=== PATIENT | female | born 1945 | race Caucasian/White ===

== ENCOUNTER 2017-08-09 08:05 | Outpatient (CLI) | payer MEDICARE ==
--- NOTE | 2017-08-09 10:36 | ULT ---
ABDOMINAL ULTRASOUND: DATE: 08/09/17. HISTORY: Hepatitis. FINDINGS: There is slightly coarsened echotexture of the liver which may be related to mild fatty infiltration. No focal hepatic lesion is seen. The gallbladder, visualized portions of the IVC, abdominal aorta, limited visualized portions of the pancreas, and right kidney demonstrate a normal sonographic appearance. The right kidney measures 10 .7 cm in length. The left kidney measures 9.8 cm in length. There is a small anechoic structure seen within the super ior pole left kidney measuring 1.2 cm demonstrating characteristics most compatible with a cyst. The re is a smaller hypoechoic structure at the inferior pole left kidney measuring 1 cm, which is diffic ult to characterize but also likely represents a small cyst. IMPRESSION: 1. Mild fatty infiltration of the liver without focal hepatic lesion seen. 2. Left renal cyst. 3. No gallbladder calculi are visualized. POS: [facility]
== END 2017-08-09 08:06 | disposition home or self-care (01) ==
LOC: SCSULT 08:05
PROVIDERS: ATTEND Internal Medicine
DX: Z12.11 Encounter for screening for malignant neoplasm of colon (principal); B19.10 Unspecified viral hepatitis B without hepatic coma; K76.0 Fatty (change of) liver, not elsewhere classified; N28.1 Cyst of kidney, acquired
CPT/HCPCS: 76700

== ENCOUNTER 2017-09-03 09:10 | Emergency (ER) | payer MEDICARE ==
[2017-09-03] MEDS ORDERED: HYDROcodone/Acetaminophen 10/325 mg Tablet ONE (10:30)
--- NOTE | 2017-09-03 11:16 | RAD ---
THREE VIEWS RIGHT FOOT: Date: 09-03-17 History: Right foot pain. FINDINGS: There is diffuse osteopenia. No obvious fracture is seen. There is no evidence of a dislocation. [place] ranc joint is normally aligned. There is mild metatarsal varus and hallux valgus. IMPRESSION: Diffuse osteopenia, but no acute osseous abnormality is identified. POS: [facility]
== END 2017-09-03 10:31 | disposition home or self-care (01) ==
LOC: ERS 09:10
DX: S93.601A Unspecified sprain of right foot, initial encounter (principal); F32.9 Major depressive disorder, single episode, unspecified; I50.9 Heart failure, unspecified; G90.09 Other idiopathic peripheral autonomic neuropathy; W01.0XXA Fall on same level from slipping, tripping and stumbling without subsequent striking against object, initial encounter

== ENCOUNTER 2018-02-22 07:48 | Outpatient (CLI) | payer MEDICARE | END 2018-02-22 07:49 | disposition home or self-care (01) | LOC: BICMAMMO 07:48 | PROVIDERS: ATTEND Family Medicine | DX: Z12.31 Encounter for screening mammogram for malignant neoplasm of breast (principal); Z80.3 Family history of malignant neoplasm of breast; Z85.3 Personal history of malignant neoplasm of breast | CPT/HCPCS: 77063; 77067 ==

== ENCOUNTER 2018-07-18 10:37 | Observation (INO) | payer MEDICARE ==
[2018-07-18] MEDS ORDERED: Ondansetron PF 4 MG/2 ML Vial ONE (10:56)
[2018-07-18] MEDS ORDERED: Diltiazem HCl 125 MG, Admixture Fee 1 EACH in Sodium Chloride 0.9% 100 ML IVPB SCH (11:00)
[2018-07-18 11:15] LABS: #Basophils 0.1 thou/uL (0.0-0.2); #Eosinphils 0.1 thou/uL (0.0-0.7); #Lymphocytes 0.6 thou/uL (1.20-3.40); #Monocytes 1.1 thou/uL (0.11-0.59); #Neutrophils 8.2 thou/uL (1.40-6.50); %Basophils 0.7 % (0.0-1.0); %Eosinophils 1.3 % (0.0-10.0); %Lymphocytes 5.8 % (21.0-51.0); %Monocytes 11.3 % (0.0-10.0); Hemoglobin 12.6 g/dL (12.0-16.0); Mean Corpuscular HGB CONC 31.2 g/dL (32.0-36.0); Mean Corpuscular Hemoglobin 27.7 pg (27.0-31.0); Mean Corpuscular Volume 88.8 fL (78.0-98.0); Mean Platelet Volume 7.6 fL (7.4-10.4); Platelet Count 194 thou/uL (130-400); RBC Distribution Width 13.1 % (11.5-14.5); Red Blood Cell (RBC) Count 4.54 mill/uL (4.20-5.40); White Blood Cell (WBC) Count 10.1 thou/uL (4.8-10.8)
--- NOTE | 2018-07-18 11:19 | RAD ---
PORTABLE SEMIUPRIGHT FRONTAL CHEST RADIOGRAPH: Date: 07/18/18 COMPARISON: None. HISTORY: Atrial fibrillation with rapid ventricular rate, nausea and vomiting. FINDINGS: There is atherosclerotic calcification of the aortic arch. Heart and mediastinal contours unremarkabl e. There is elevation of the humeral head on the right and there is widening of the right AC joint, e vidence of prior surgery and probable rotator cuff tear. No pneumothorax or pleural fluid. No focal c onsolidation or alveolar edema. IMPRESSION: No radiographic evidence of acute cardiopulmonary disease. POS: [facility]
[2018-07-18 11:38] LABS: ALT (SGPT) 12 U/L (8-55); AST (SGOT) 13 U/L (5-34); Albumin 3.6 g/dL (3.4-4.8); Alkaline Phosphatase 50 U/L (40-150); Anion Gap 13 mmol/L (10-20); BUN (Urea Nitrogen) 11 mg/dL (9.8-20.1); Bilirubin, Total 0.7 mg/dL (0.2-1.2); Calc. Creatinine Clearance 0 mL/min (70-130); Carbon Dioxide 26 mmol/L (23-31); Chloride 103 mmol/L (98-107); Estimated GFR-MDRD 56; Globulin 2.5 g/dL (2.4-3.5); Glucose 95 mg/dL (80-115); Protein, Total 6.1 g/dL (6.0-8.3); Sodium 139 mmol/L (136-145)
[2018-07-18 12:15] LABS: Bilirubin Negative (Negative); Blood, Urine Trace (Negative); Clarity CLOUDY (Clear); Glucose, Urine (Dipstick) Negative (Negative); Leukocyte Trace (Negative); Nitrite Positive (Negative); Protein, Urine (Dipstick) Negative (Neg-Trace); Specific Gravity, Urine 1.005 (1.002-1.036)
[2018-07-18 12:18] LABS: Bacteria/HPF 1+ HPF (None Seen); Hyaline Casts/LPF 0-3 HYALINE CAST LPF (0-3 Hyaline); RBC/HPF 0-3 HPF (0-3); Squamous Epithelial 0-3 HPF (0-3)
[2018-07-18] MEDS ORDERED: cefTRIAXone\\ROCEPHIN 1 GM VIAL ONE (12:43)
[2018-07-18] MEDS ORDERED: Acetaminophen 325 MG TAB PO PRN (14:19)
[2018-07-18] MEDS ORDERED: Morphine 2 MG/ML SYRINGE SLOW IVP PRN (14:19)
[2018-07-18] MEDS ORDERED: Sodium Chloride 0.9% 1,000 ML IV SCH (14:30)
[2018-07-18] MEDS ORDERED: Lorazepam 2 MG/ML VIAL ONE (14:47)
--- NOTE | 2018-07-18 15:45 | HP ---
PRIMARY CARE PROVIDER: Dr. Jose Raul Bagley. HISTORY OF PRESENT ILLNESS: The patient referred to the [facility] after being sent from Dr. Bagley's office with EKG revealing atrial fibrillation with a rapid ventricular response. She was seen in the emergency room, referred. At this time, her atrial fib is resolved and she is in regular sinus rhythm. She has had nausea, vomiting, and diarrhea for 2 days. She has noted no blood in either. Last episode was this morning of each. She states she feels she maybe a little bit better, but she has been dizzy like she is going to pass out on arising this morning. She has noted no fever or chills, but she did have a sweat 2 days before the start of the nausea and vomiting. 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 She has been worked up at a referral hospital. She has a history depression, on medicines; history of hypertension. CURRENT MEDICATIONS: 1. Lasix 40 mg twice a day. 2. Potassium chloride 40 mEq once a day. 3. Cymbalta 120 mg a day. 4. Xanax 0.5 mg a day. 5. Fentanyl patch 25 mcg/hour, change every 3 days. 6. Gabapentin 800 mg 3 times a day. 7. Wellbutrin XL 300 mg a day. 8. Amlodipine 10 mg a day. 9. Entecavir 0.5 mg once a day. ALLERGIES: NO KNOWN DRUG ALLERGIES. PAST SURGICAL HISTORY: Rotator cuff on the right, breast surgery, lumpectomy for breast cancer with followup radiation therapy. She has had L-spine surgery. FAMILY HISTORY: No inheritable diseases, hypertension, diabetes, heart disease, or etc. SOCIAL HISTORY: x2 years. Full code status. Sons, Reyes and Umair, are both surrogate decision makers. They are at bedside. No tobacco. No alcohol. REVIEW OF SYSTEMS: GENERAL: See present illness. Sweaty 4 days ago, dizzy like going to pass out this morning. No actual faint. No documented fever. EYES: No double vision, blurred vision, or flashing light. EARS, NOSE, AND THROAT: No ear pain or drainage. No nasal bleeding. No trouble swallowing. CARDIAC: No chest pain, orthopnea, or paroxysmal nocturnal dyspnea. RESPIRATORY: No cough, wheezing, or asthma. GASTROINTESTINAL: See present illness. GENITOURINARY: No hematuria or dysuria. MUSCULOSKELETAL: Has occasional swelling in her legs for which she takes the Lasix. No pain in muscles or joints. NEUROLOGICAL: No strokes, seizures, or focal weakness. PSYCHIATRIC: History of depression, on medications. Does have occasional crying spells and sleep disturbance without her Xanax. SKIN: No bruising, bleeding, or rash. HEME/LYMPH: No tender or swollen lymph nodes in the axilla, inguinal, or cervical area. PHYSICAL EXAMINATION: VITAL SIGNS: Blood pressure 112/63, pulse 81, respirations 16, O2 saturation 97 on room air. HEAD, EYES, EARS, NOSE, AND THROAT: Revealed pupils are equal, round, and reactive to light. Extraocular movements are intact. Sclerae are white. Tympanic membranes are clear. Nose is clear. Oral mucous membranes are wet. Dental hygiene is good. NECK: Supple without jugular venous distention, adenopathy, or thyromegaly. CHEST: Clear to auscultation and percussion. HEART: Had a regular rate and rhythm. First and second heart sounds are clear. There are no murmurs or gallops. ABDOMEN: Soft. Bowel sounds are normal. No hepatosplenomegaly. No mass. No rebound. No bruits. EXTREMITIES: Revealed no cyanosis, clubbing, or edema. PULSES: Carotid, radial, femoral, and dorsalis pedis pulses intact. SKIN: Warm and dry without any bruises or rash. HEME/LYMPH: No tender or swollen lymph nodes in the axilla, inguinal, or cervical area. NEUROLOGIC: Cranial nerves 2 through 12 are intact. Deep tendon reflexes symmetric. Moves all extremities. DIAGNOSTIC DATA: EKG, initial atrial fibrillation with rapid ventricular response, currently regular sinus rhythm with no acute abnormality, reviewed by me. Chest x-ray; no cardiomegaly, CHF, or infiltrate, reviewed by me. LABORATORY DATA: CBC is unremarkable except for a mild neutrophilia. Metabolic profile normal except for a potassium of 3.0. Cardiac enzymes are 93.4 BNP and troponin 0.025. ADMITTING DIAGNOSES: 1. Atrial fibrillation, paroxysmal, resolved. 2. Gastroenteritis with nausea, vomiting, and diarrhea. 3. Mild hypokalemia. 4. Hypertension. 5. Depression. 6. Peripheral neuropathy. PLAN: IV fluids, IV antiemetics, IV medicines for pain and sedation in case of anxiety and severe pain related to her neuropathy. Echocardiogram will be ordered. We will need serial troponins. Job ID: [id number]
[2018-07-18 15:58] VITALS: BMI 27.8
[2018-07-18] MEDS: D5 1/2 NS w/40 mEq KCL 1,000 ML IV SCH (16:28)
[2018-07-18 16:52] LABS: Troponin I 0.078 ng/mL (< 0.028)
[2018-07-18] MEDS: Ondansetron ODT 4 MG TAB PO PRN (21:02)
[2018-07-18] MEDS: Lorazepam 2 MG/ML VIAL SLOW IVP PRN (21:02)
[2018-07-19] MEDS: D5 1/2 NS w/40 mEq KCL 1,000 ML IV SCH ×2 (02:27→15:56)
[2018-07-19] MEDS: Lorazepam 2 MG/ML VIAL SLOW IVP PRN ×2 (07:44→14:58)
[2018-07-19 10:46] LABS: #Eosinphils 0.2 thou/uL (0.0-0.7); #Lymphocytes 0.8 thou/uL (1.20-3.40); #Monocytes 0.7 thou/uL (0.11-0.59); %Basophils 0.3 % (0.0-1.0); %Eosinophils 2.8 % (0.0-10.0); %Lymphocytes 14.2 % (21.0-51.0); %Monocytes 11.7 % (0.0-10.0); Mean Corpuscular HGB CONC 32.7 g/dL (32.0-36.0); Mean Corpuscular Hemoglobin 28.7 pg (27.0-31.0); Mean Corpuscular Volume 87.8 fL (78.0-98.0); Mean Platelet Volume 7.5 fL (7.4-10.4); Platelet Count 182 thou/uL (130-400); RBC Distribution Width 12.8 % (11.5-14.5); Red Blood Cell (RBC) Count 3.84 mill/uL (4.20-5.40); White Blood Cell (WBC) Count 5.6 thou/uL (4.8-10.8)
[2018-07-19 11:12] LABS: Anion Gap 8 mmol/L (10-20); BUN (Urea Nitrogen) 5 mg/dL (9.8-20.1); Calc. Creatinine Clearance 73 mL/min (70-130); Calcium 8.4 mg/dL (7.8-10.44); Carbon Dioxide 27 mmol/L (23-31); Chloride 108 mmol/L (98-107); Estimated GFR-MDRD 70; Glucose 124 mg/dL (80-115); Potassium 3.3 mmol/L (3.5-5.1); Sodium 140 mmol/L (136-145)
[2018-07-19] MEDS ORDERED: ALPRAZolam 0.5 MG TAB PO PRN (11:37)
[2018-07-19] MEDS ORDERED: Ondansetron ODT 4 MG TAB PO PRN (11:50)
[2018-07-19] MEDS ORDERED: DULoxetine 60 MG CAP PO SCH (12:00)
[2018-07-19] MEDS ORDERED: Amlodipine 10 MG TAB PO SCH (12:00)
[2018-07-19] MEDS ORDERED: Bupropion 150 MG XL TAB PO SCH (12:00)
[2018-07-19 12:09] LABS: Troponin I 0.021 ng/mL (< 0.028)
[2018-07-19] MEDS: Ondansetron ODT 4 MG TAB PO PRN (12:38)
[2018-07-19] MEDS: Gabapentin 400 MG CAP PO SCH ×2 (14:39→20:45)
--- NOTE | 2018-07-19 18:28 | PRG ---
DATE OF SERVICE: 07/19/2018 SUBJECTIVE: The patient is a 72-year-old female with past medical history significant for hypertension, peripheral neuropathy, and chronic low back pain, who presented to the hospital with a 3-day history of nausea, vomiting, and diarrhea , and new onset atrial fibrillation. This was diagnosed at Dr. Bagley's office during exam, and so was referred to the ER for further treatment. Her atrial fibrillation had spontaneously resolved on arrival to the ER. She has remained in sinus rhythm. Her nausea and vomiting are improving, and she is tolerating a liquid diet at this time. She has no shortness of breath or dizziness. She has no chest pain. OBJECTIVE: VITAL SIGNS: Blood pressure 162/76, pulse is 96, O2 saturation is 95% on room air, respirations 20. GENERAL: The patient is a female. She is resting comfortably in bed. She is in no respiratory distress. HEENT: Head; normocephalic, atraumatic. NECK: Supple. No carotid bruits. No obvious JVD. CV: S1, S2. Regular rate and rhythm. There is no appreciable murmur, rub, or gallop. LUNGS: Regular respiratory rate and pattern, clear to auscultation bilaterally. ABDOMEN: Positive bowel sounds. Nontender. EXTREMITIES: No lower extremity pitting edema. +2 DP pulses bilaterally. SKIN: No rashes or abrasions. NEURO: The patient is nonfocal. LABORATORY DATA: White blood cell count 5.6, hemoglobin 11, hematocrit 33.7. Chemistry; sodium is 140, potassium is 3.3, BUN 5, creatinine 0.81. Serial troponin has been 0.025, 0.07, and 0.021 respectively. UA positive for nitrite, 1+ bacteria, and trace leukocyte esterase. ASSESSMENT: 1. New onset atrial fibrillation, status post spontaneous conversion back to sinus rhythm. CHADS-VASc equals 4. 2. 3-day history of nausea, vomiting secondary to viral gastroenteritis likely instigating above, symptomatically improving. 3. Abnormal echocardiogram showing mild left ventricular systolic dysfunction with EF 45% to 50% and regional wall motion abnormality. 4. Hypertension. 5. Chronic low back pain. 6. 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 7. Mild urinary tract infection. PLAN: Given the patient's new onset atrial fibrillation and abnormal echocardiogram showing EF of 45% to 50% and hypokinetic motion of the inferior wall, we will consult Cardiology for their recommendations. Continue antiemetics and supportive care for her viral gastroenteritis. Advance diet as tolerated. We will go ahead and treat her urinary tract infection, and continue DVT prophylaxis. Further recommendations based on hospital course. Job ID: [id number] [facility]
[2018-07-19] MEDS: Furosemide 40 MG TAB PO SCH (20:45)
[2018-07-19] MEDS: Folic Acid 1 MG TAB PO SCH (20:45)
[2018-07-19] MEDS: Nitrofurantoin Monohyd/M-Cryst 100 MG CAP PO SCH (20:46)
[2018-07-19] MEDS ORDERED: Enoxaparin Sodium 40 MG/0.4 ML SYRINGE SC SCH (21:00)
[2018-07-20] MEDS: D5 1/2 NS w/40 mEq KCL 1,000 ML IV SCH ×2 (01:14→11:34)
[2018-07-20 05:22] LABS: #Eosinphils 0.2 thou/uL (0.0-0.7); #Lymphocytes 1.2 thou/uL (1.20-3.40); #Monocytes 0.7 thou/uL (0.11-0.59); #Neutrophils 3.6 thou/uL (1.40-6.50); %Basophils 0.8 % (0.0-1.0); %Eosinophils 3.3 % (0.0-10.0); %Lymphocytes 20.5 % (21.0-51.0); %Monocytes 12.4 % (0.0-10.0); Hemoglobin 10.8 g/dL (12.0-16.0); Mean Corpuscular HGB CONC 32.3 g/dL (32.0-36.0); Mean Corpuscular Hemoglobin 28.9 pg (27.0-31.0); Mean Corpuscular Volume 89.4 fL (78.0-98.0); Mean Platelet Volume 7.4 fL (7.4-10.4); Platelet Count 189 thou/uL (130-400); RBC Distribution Width 12.8 % (11.5-14.5); Red Blood Cell (RBC) Count 3.73 mill/uL (4.20-5.40); White Blood Cell (WBC) Count 5.6 thou/uL (4.8-10.8)
[2018-07-20 05:33] LABS: Anion Gap 10 mmol/L (10-20); BUN (Urea Nitrogen) Less than 4 mg/dL (9.8-20.1); Calc. Creatinine Clearance 75 mL/min (70-130); Calcium 8.4 mg/dL (7.8-10.44); Carbon Dioxide 27 mmol/L (23-31); Chloride 109 mmol/L (98-107); Estimated GFR-MDRD 71; Glucose 105 mg/dL (80-115); Potassium 3.7 mmol/L (3.5-5.1); Sodium 142 mmol/L (136-145)
[2018-07-20] MEDS: Gabapentin 400 MG CAP PO SCH ×2 (06:18→13:52)
[2018-07-20] MEDS ORDERED: predniSONE 5 MG TAB PO SCH (08:00)
[2018-07-20] MEDS ORDERED: Bupropion 150 MG XL TAB PO SCH (09:00)
[2018-07-20] MEDS ORDERED: Anastrozole 1 MG TAB PO SCH (09:00)
[2018-07-20] MEDS ORDERED: DULoxetine 30 MG CAP PO SCH (09:00)
[2018-07-20] MEDS ORDERED: Amlodipine 10 MG TAB PO SCH (09:00)
[2018-07-20] MEDS ORDERED: Entecavir [Entecavir] 0.5 MG PO SCH (09:00)
[2018-07-20] MEDS: Nitrofurantoin Monohyd/M-Cryst 100 MG CAP PO SCH (09:02)
[2018-07-20] MEDS: Folic Acid 1 MG TAB PO SCH (09:02)
[2018-07-20] MEDS: Furosemide 40 MG TAB PO SCH (09:02)
[2018-07-20] MEDS ORDERED: DULoxetine 60 MG CAP PO SCH (10:00)
--- NOTE | 2018-07-20 10:58 | CON ---
DATE OF CONSULTATION: HISTORY OF PRESENT ILLNESS: The patient is a 72-year-old woman with a history of demyelinating polyneuropathy, presented with weakness, nausea, vomiting, and was noted to be in irregular heart rhythm. The patient has no previous cardiac history. The patient unfortunately has a severe demyelinating disease. She had several days of nausea, vomiting, and diarrhea. She went to see her physician and noted to be in a rapid irregular heart rhythm. The patient denied having any palpitations. The patient denied having any chest pain or dyspnea. PAST MEDICAL HISTORY: 1. Polyneuropathy. 2. She also has a history of breast carcinoma. 3. Rheumatoid arthritis. 4. Hypertension. PAST SURGICAL HISTORY: Lumpectomy, laminectomy, and also has had spinal surgery. SOCIAL HISTORY: Nonsmoker. FAMILY HISTORY: No strong family history of heart disease. MEDICATIONS: See nursing list. ALLERGIES: NO KNOWN DRUG ALLERGIES. REVIEW OF SYSTEMS: No history of easy bruising or bleeding bright red blood per rectum. PHYSICAL EXAMINATION: GENERAL: This is an obese woman, in no acute distress. VITAL SIGNS: Blood pressure of 132/76. NECK: No jugular distention. LUNGS: Clear to auscultation. HEART: Regular rate and rhythm. Normal S1 and S2. ABDOMEN: Nondistended. EXTREMITIES: Show no edema. VASCULAR: Radial pulses are 2+. LABORATORY RESULTS: Sodium 142, potassium 3.7, chloride 109, bicarbonate 27, BUN 10, creatinine was 0.8. Troponin less than 0.021. White blood cell count 5.6, hemoglobin 10.8, hematocrit 33.4, platelets are 189. Her troponin was 0.021. BNP 93. EK. Revealed atrial fibrillation with a rapid ventricular shock and possible Q- waves suggestive of an inferior infarct. 2. Revealed normal sinus rhythm within a normal ECG. Echocardiogram revealed mild decreased left ventricular ejection fraction 45% to 50% with a hypokinetic inferolateral wall. IMPRESSION: 1. New onset atrial fibrillation. 2. Gastroenteritis. 3. Peripheral neuropathy secondary to demyelinating disease. 4. Rheumatoid arthritis. 5. Hypertension. This patient presents with new onset atrial fibrillation. She has a CHADS-VASc score of 3. From a cardiac standpoint, would recommend long-term anticoagulation therapy. The patient was started on Eliquis. The patient will also be started on a low-dose of a beta-starla. Outpatient stress testing will be obtained. Job ID: [id number] [facility]
[2018-07-20 16:00] VITALS: BP 117/70; TEMP 98.6
[2018-07-20] MEDS ORDERED: Apixaban 5 MG TAB PO SCH (21:00)
--- NOTE | 2018-07-21 02:29 | DIS ---
DATE OF ADMISSION: 07/18/2018 DATE OF DISCHARGE: 07/20/2018 ALLERGIES: NSAIDS. CHIEF COMPLAINT: A 3-day history of nausea, vomiting, and diarrhea. FINAL DIAGNOSES: 1. New onset atrial fibrillation, status post spontaneous conversion back to sinus rhythm, CHADS-VASc 4. 2. Nausea, vomiting secondary to viral gastroenteritis, resolved. 3. Abnormal echocardiogram showing mild left ventricular systolic dysfunction with EF 45% to 50% and regional wall motion abnormality. 4. Hypertension. 5. Chronic low back pain. 6. 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 7. Mild urinary tract infection. LABORATORY RESULTS: White blood cell count 5.6, hemoglobin 10.8, hematocrit 33.4. Sodium 142, potassium 3.7, chloride 109, carbon dioxide 27, BUN 4, creatinine 0.8, GFR 71. Troponin 0.025, 0.07, and 0.021 respectively. BNP 93. Urinalysis positive for trace amounts of blood, positive for nitrites, positive for trace amounts of leukocyte esterase, positive for white blood cell count, and positive for urine bacteria. IMAGING RESULTS: 1. Chest x-ray, no radiographic evidence of acute cardiopulmonary disease. 2. Echocardiogram showed ejection fraction visually estimated at 45% to 50%, hypokinetic motion of the inferior lateral wall noted in the left ventricle, mild MR and mild TR. CONSULTATION: Dr. Underwood of Cardiology. VITAL SIGNS: Blood pressure 117/70, pulse 86, respiration 18, O2 saturation 96% on room air. HOSPITAL COURSE: The patient is a 72-year-old female with past medical history significant for hypertension, peripheral neuropathy, chronic low back pain, and chronic venous insufficiency, who presented to the hospital with a 3-day history of nausea, vomiting, and diarrhea. She was seen in her PCP's office, Dr. Bagley, who diagnosed atrial fibrillation during her office visit and so sent her to the ER for further workup and evaluation. Initial EKG in his office showed sustained atrial fibrillation with a ventricular rate of 171. At that time, the patient was experiencing some dizziness and shortness of breath. Upon her arrival to the ER, she had spontaneously converted back to sinus rhythm. She remained in sinus rhythm throughout her stay. She was given supportive care for her gastroenteritis including antiemetics and IV fluid resuscitation. Her GI symptoms did completely resolve. She was seen in consultation with Dr. Underwood, who recommended anticoagulation with Eliquis 5 mg b.i.d., discontinuing her amlodipine, and adding Toprol-XL 25 mg daily. She will be scheduled for a cardiac PET scan at his office as an outpatient. The patient has no complaints today. She denies any chest pain or shortness of breath. She has ambulated without issue. As mentioned, all of her presenting symptoms have resolved. She has no complaints at this time. PHYSICAL EXAMINATION: GENERAL: She is awake and alert, well appearing, in no respiratory distress. HEENT: Atraumatic, normocephalic. Eye movements intact. NECK: Supple. No lymphadenopathy. No carotid bruits. No JVD. RESPIRATORY: Regular respiratory rate and pattern. Clear to auscultation bilaterally. No rhonchi, wheezes, or crackles. CV: S1 and S2. Regular rate and rhythm. No appreciable murmurs, rubs, or gallops. GI: Soft, nontender. Normal bowel sounds. PERIPHERAL VASCULAR: No pitting edema bilaterally. She does have palpable pulses. MUSCULOSKELETAL: No joint effusion or swelling. NEUROLOGIC: Awake and alert. Cranial nerves 2 through 12 grossly intact. Nonfocal. SKIN: Warm and dry. No discoloration or rashes. CONDITION AT DISCHARGE: Stable discharge. DISCHARGE MEDICATIONS: She will continue her home medication regimen includin. Alprazolam 0.5 mg p.o. at bedtime. 2. Anastrozole 1 mg p.o. daily. 3. Bupropion 300 mg p.o. q.a.m. 4. Duloxetine 120 mg p.o. daily. 5. Entecavir 0.5 mg p.o. daily. 6. Fentanyl patch as directed. 7. Folic acid 1 mg tab p.o. b.i.d. 8. Gabapentin 800 mg p.o. q.8 hours. 9. Zofran 4 mg p.o. q.8 hours. 10. Pantoprazole 40 mg daily. 11. Prednisone 5 mg tab one tab q.a.m. New medications will be: 1. Toprol-XL 25 mg daily. 2. Eliquis 5 mg tablet one tablet p.o. b.i.d. 3. Regarding her furosemide, I have reduced her dose to 20 mg tablet along with her potassium tablet to 20 mg of Lasix only as needed for swelling. 4. She will take her potassium supplement just one in conjunction with that. DISCHARGE DISPOSITION: Home. PLAN: As mentioned, the patient will follow up with Dr. Underwood as an outpatient. She will have a cardiac PET scan performed at that time to assess for reversible ischemia. She will continue Eliquis for stroke prophylaxis. Regarding her cardiomyopathy, all questions have been answered to the patient's satisfaction. Her gastroenteritis has resolved. We will discharge the patient home. Care has been discussed with Dr. Almeida, who agrees with the above. Job ID: [id number]
[2018-07-21] MEDS ORDERED: DULoxetine 60 MG CAP PO SCH (09:00)
== END 2018-07-20 19:22 | disposition home or self-care (01) ==
LOC: ERS 10:37 → ERHOLD 12:30 → 2SW 15:39
PROVIDERS: ADMIT Internal Medicine; ATTEND Internal Medicine
DX: I48.0 Paroxysmal atrial fibrillation (principal); K52.9 Noninfective gastroenteritis and colitis, unspecified; I10 Essential (primary) hypertension; G62.9 Polyneuropathy, unspecified; N39.0 Urinary tract infection, site not specified; M06.9 Rheumatoid arthritis, unspecified; E87.6 Hypokalemia; F32.9 Major depressive disorder, single episode, unspecified; G37.9 Demyelinating disease of central nervous system, unspecified; Z85.3 Personal history of malignant neoplasm of breast; Z92.3 Personal history of irradiation; Z88.6 Allergy status to analgesic agent; Z79.01 Long term (current) use of anticoagulants; Z79.2 Long term (current) use of antibiotics; Z79.52 Long term (current) use of systemic steroids; Z98.890 Other specified postprocedural states; Z79.899 Other long term (current) drug therapy
CPT/HCPCS: 51701; 71045; 80048 ×2; 80053; 83605; 83880; 84484 ×3; 85025 ×3; 87040; 93005; 93306; 96361; 96365; 96366 ×4; 96367; 96372; 96374; 96375; 96376 ×2; 99285; G0378 ×3; 36415; 81003; 81015; J0696; J1650; J2060; J2270; J2405; J7050; J7512; Q0162

== ENCOUNTER 2018-11-22 08:48 | Outpatient (CLI) | payer MEDICARE ==
--- NOTE | 2018-11-22 09:19 | RAD ---
XR Shoulder Lt 3 View STANDARD: 11/22/2018 12:00 AM CLINICAL INDICATION: Acute pain, left shoulder COMPARISON: None. FINDINGS: Fracture:No fracture. Arthropathy:Moderate arthropathy. Incidental findings:None of significance. IMPRESSION: 1. No acute osseous abnormality.
== END 2018-11-22 08:49 | disposition home or self-care (01) ==
LOC: RAD 08:48
PROVIDERS: ATTEND Nurse Practitioner Family
DX: M25.512 Pain in left shoulder (principal)

== ENCOUNTER 2019-06-05 10:45 | Outpatient (CLI) | payer MEDICARE ==
--- NOTE | 2019-06-08 13:28 | MMO ---
Bilateral MAMMO Bilat Screen [facility]. CLINICAL HISTORY: Patient is 73 years old and is seen for screening. The patient has the following family history of breast cancer: aunt, malignant (generic) and cousin female, malignant (generic). The patient has a history of malignant (generic) in the left breast at age 55. The patient has a history of left Lumpectomy in 1999 - malignant and left Lumpectomy in 2002 - benign. VIEWS: The views performed were: bilateral craniocaudal with tomosynthesis and bilateral mediolateral oblique with tomosynthesis. FILMS COMPARED: The present examination has been compared to prior imaging studies performed at [facility] on 11/10/2013 and 11/12/2014, and at [facility] on 05/12/2016 and 02/22/2018. This study has been interpreted with the assistance of computer-aided detection. MAMMOGRAM FINDINGS: There are scattered fibroglandular densities. Finding 1: There are stable benign appearing calcifications seen in both breasts. Finding 2: There is a stable focal asymmetry seen in the right breast. There are no suspicious masses, suspicious calcifications, or new areas of architectural distortion. IMPRESSION: THERE IS NO MAMMOGRAPHIC EVIDENCE OF MALIGNANCY. A ROUTINE FOLLOW-UP MAMMOGRAM IN 1 YEAR IS RECOMMENDED. THE RESULTS OF THIS EXAM WERE SENT TO THE PATIENT. ACR BI-RADS Category 2 - Benign finding MAMMOGRAPHY NOTE: 1. A negative mammogram report should not delay a biopsy if a dominant of clinically suspicious mass is present. 2. Approximately 10% to 15% of breast cancers are not detected by mammography. 3. Adenosis and dense breasts may obscure an underlying neoplasm. Reported by: RAJWINDER SHELL MD Electonically Signed: [id number]
== END 2019-06-05 10:46 | disposition home or self-care (01) ==
LOC: BICMAMMO 10:45
PROVIDERS: ATTEND Family Medicine
DX: Z12.31 Encounter for screening mammogram for malignant neoplasm of breast (principal); Z80.3 Family history of malignant neoplasm of breast; Z85.3 Personal history of malignant neoplasm of breast; Z91.89 Other specified personal risk factors, not elsewhere classified; Z98.890 Other specified postprocedural states
CPT/HCPCS: 77063; 77067

== ENCOUNTER 2020-02-08 23:41 | Inpatient (IN) | payer MEDICARE, OTHER ==
[2020-02-08] MEDS ORDERED: cefTRIAXone\\ROCEPHIN 2 GM VIAL ONE (23:59)
[2020-02-08] MEDS ORDERED: Sodium Chloride 0.9% 100 ML ONE (23:59)
[2020-02-09 00:25] LABS: #Basophils 0.1 thou/uL (0.0-0.2); #Eosinphils 0.1 thou/uL (0.0-0.7); #Lymphocytes 0.8 thou/uL (1.20-3.40); #Monocytes 0.6 thou/uL (0.11-0.59); #Neutrophils 6.1 thou/uL (1.40-6.50); %Basophils 0.7 % (0.0-1.0); %Eosinophils 1.9 % (0.0-10.0); %Lymphocytes 10.6 % (21.0-51.0); %Monocytes 8.2 % (0.0-10.0); %Neutrophils 78.6 % (42.0-75.0); Hemoglobin 12.2 g/dL (12.0-16.0); Mean Corpuscular HGB CONC 33.6 g/dL (32.0-36.0); Mean Corpuscular Hemoglobin 29.2 pg (27.0-31.0); Platelet Count 240 thou/uL (130-400); RBC Distribution Width 12.7 % (11.5-14.5); Red Blood Cell (RBC) Count 4.19 mill/uL (4.20-5.40); White Blood Cell (WBC) Count 7.8 thou/uL (4.8-10.8)
[2020-02-09 00:32] LABS: INR-International Normal Ratio 1.1; PTT 34.3 sec (22.9-36.1); Prothrombin Time 14.4 sec (12.0-14.7)
[2020-02-09] MEDS ORDERED: Pantoprazole 40 MG VIAL ONE (00:36)
[2020-02-09 00:41] LABS: Acetaminophen Less than 6.0 mcg/mL (10.0-30.0); Alcohol Less than 10 mg/dL (Less than 10); Salicylate Less than 8.0 mg/dL (15.0-30.0)
[2020-02-09 00:46] LABS: ALT (SGPT) 12 U/L (8-55); AST (SGOT) 13 U/L (5-34); Albumin 3.4 g/dL (3.4-4.8); Alkaline Phosphatase 61 U/L (40-110); Anion Gap 15 mmol/L (10-20); BUN (Urea Nitrogen) 9 mg/dL (9.8-20.1); Bilirubin, Total 0.4 mg/dL (0.2-1.2); Calc. Creatinine Clearance 0 mL/min (70-130); Calcium 8.8 mg/dL (7.8-10.44); Carbon Dioxide 23 mmol/L (23-31); Chloride 108 mmol/L (98-107); Estimated GFR-MDRD 59; Globulin 2.5 g/dL (2.4-3.5); Glucose 116 mg/dL (83-110); Lipase 14 U/L (8-78); Protein, Total 5.9 g/dL (6.0-8.3); Sodium 143 mmol/L (136-145)
[2020-02-09 01:03] LABS: Free T4 (Free Thyroxine) 1.3 ng/dL (0.70-1.48); Thyroid Stimulating Hormone 1.3601 uIU/mL (0.35-4.94)
[2020-02-09 01:31] LABS: Amphetamine Not Detected (NotDetected); Benzodiazepine Screen Detected (NotDetected); Bilirubin Negative (Negative); Blood, Urine Negative (Negative); Clarity Clear (Clear); Cocaine Metabolite Screen Not Detected (NotDetected); Glucose, Urine (Dipstick) Normal (Negative); Ketone, Urine Negative (Negative); Leukocyte 500 Leu/uL (Negative); Medtox Reader # READER 4; Methamphetamine Not Detected (NotDetected); Nitrite 1+ (Negative); Opiate Screen Not Detected (NotDetected); Phencyclidine (PCP) Not Detected (NotDetected); Protein, Urine (Dipstick) Negative (Neg-Trace); RBC/HPF 0-3 HPF (0-3); Specific Gravity, Urine 1.006 (1.002-1.036); Squamous Epithelial None Seen HPF (0-3); THC/Cannabinoid Screen Not Detected (NotDetected); Urobilinogen Normal mg/dL (Less than 2); WBC/HPF 21-50 HPF (0-3); pH, Urine 6.5 (5.0-9.0)
[2020-02-09 01:32] LABS: Barbiturates Screen Not Detected (NotDetected); Medtox Control Line Valid? VALID (VALID); Methadone Not Detected (NotDetected); Oxycodone Screen Not Detected (NotDetected); Tricyclic Screen Not Detected (NotDetected)
[2020-02-09 01:41] LABS: Bacteria/HPF 3+ HPF (None Seen)
[2020-02-09] MEDS ORDERED: Magnesium 2 GM/50 ML BAG (IN WATER) ONE (01:49)
[2020-02-09] MEDS ORDERED: Promethazine HCl 25 MG/ML VIAL ONE (01:51)
[2020-02-09] MEDS ORDERED: Vancomycin 1 GM/200 ML BAG ONE (02:11)
[2020-02-09] MEDS ORDERED: Ondansetron PF 4 MG/2 ML Vial IVP PRN (02:31)
--- NOTE | 2020-02-09 02:40 | PDOC.HHP ---
Hospitalist HPI - History of Present Illness Altered mental status History of Present Illness: 74-year-old woman with a history of hepatitis B on entecavir, history of hyperlipidemia and hypertension was brought to the emergency department due to altered mental status. Nursing report patient has also been vomiting. No reported fever or diarrhea. No reported melena or hematochezia. In the ED, patient's UA suggest the presence of UTI. Other blood work unremarkable. Serum ammonia level is 27 and unlikely the cause of her altered mental status. Patient altered mental status likely secondary to UTI. She does not meet criteria for sepsis. Blood cultures and urine culture obtained in the ED. Sandrine ent given a shot of IV Rocephin and vancomycin. She is admitted for further management of UTI with altered mental status. Hospitalist ROS - Review of Systems ROS unobtainable: due to mental status - Medication Medications: Medication Instructions Recorded Confirmed Type Anastrozole [Arimidex] 1 mg PO DAILY 09/25/15 07/19/18 History DULoxetine [Cymbalta] 120 mg PO DAILY 09/25/15 07/19/18 History Folic Acid [Folvite] 1 mg PO BID 09/25/15 07/19/18 History predniSONE 5 mg PO QAM-WM 09/25/15 07/19/18 History Pantoprazole [Protonix] 40 mg PO DAILY #0 tab 10/25/15 07/19/18 Rx ALPRAZolam [Xanax] 0.5 mg PO HS PRN 07/19/18 07/19/18 History Entecavir 0.5 mg PO DAILY 07/19/18 07/19/18 History Gabapentin 800 mg PO Q8HR 07/19/18 07/19/18 History Ondansetron HCl [Zofran] 4 mg PO Q8HR PRN 07/19/18 07/19/18 History buPROPion HCl [Wellbutrin XL] 300 mg PO QAM 07/19/18 07/19/18 History fentaNYL [Duragesic] 25 mcg TD Q3D 07/19/18 07/19/18 History Apixaban [Eliquis] 5 mg PO BID #60 tab 07/20/18 Rx Furosemide 20 mg PO DAILY #30 tablet 07/20/18 Rx Metoprolol Succinate [Toprol XL] 25 mg PO HS #30 tab 07/20/18 Rx Nitrofurantoin Monohyd/M-Cryst 100 mg PO BID #10 cap 07/20/18 Rx [Macrobid] Potassium Chloride 20 meq PO DAILY PRN #30 tab.er.prt 07/20/18 Rx Hospitalist History - Past Medical History Cardiac: reports: HTN Psych: reports: Depression Other Medical History: Hepatitis B, breast cancer. - Past Surgical History Other Surgical History: Rotator cuff surgery, breast surgery, lumpectomy for breast cancer with follow- up radiation therapy, lumbar spine surgery. - Family History Other Family History: Reviewed and noncontributory - Social History Smoking Status: Never smoker Alcohol: reports: None Drugs: reports: none - Exam General Appearance: NAD General - other findings: Confused Eye: PERRL, anicteric sclera ENT: normocephalic atraumatic, no oropharyngeal lesions, moist mucosa Neck: supple, symmetric, no JVD, no thyromegaly Heart: RRR (Tachycardic), no murmur, no gallops Respiratory: CTAB, no wheezes, no rales, no ronchi Gastrointestinal: soft, non-distended, normal bowel sounds Gastrointestinal - other findings: Suprapubic tenderness. Extremities: no cyanosis, no edema Skin: normal turgor, no rashes Neurological: cranial nerve grossly intact, no focal deficits Musculoskeletal: normal tone, normal strength Psychiatric: oriented to person, oriented to place Hospitalist Results - Labs Result Diagrams: 02/09/20 06:03 02/08/20 00:08 Lab results: WBC 7.8 thou/uL (4.8-10.8) 02/08/20 00:08 Hgb 12.2 g/dL (12.0-16.0) 02/08/20 00:08 Hct 36.4 % (36.0-47.0) 02/08/20 00:08 MCV 87.0 fL (78.0-98.0) 02/08/20 00:08 Plt Count 240 thou/uL (130-400) 02/08/20 00:08 Neutrophils % 78.6 % (42.0-75.0) H 02/08/20 00:08 Sodium 143 mmol/L (136-145) 02/08/20 00:08 Potassium 3.0 mmol/L (3.5-5.1) L 02/08/20 00:08 Chloride 108 mmol/L (98-107) H 02/08/20 00:08 Carbon Dioxide 23 mmol/L (23-31) 02/08/20 00:08 BUN 9 mg/dL (9.8-20.1) L 02/08/20 00:08 Creatinine 0.94 mg/dL (0.6-1.1) 02/08/20 00:08 Glucose 116 mg/dL (83-110) H 02/08/20 00:08 Lactic Acid 1.8 mmol/L (0.5-2.2) 02/08/20 00:08 Calcium 8.8 mg/dL (7.8-10.44) 02/08/20 00:08 Total Bilirubin 0.4 mg/dL (0.2-1.2) 02/08/20 00:08 AST 13 U/L (5-34) 02/08/20 00:08 ALT 12 U/L (8-55) 02/08/20 00:08 Alkaline Phosphatase 61 U/L (40-110) 02/08/20 00:08 Ammonia 27 umol/L (18-72) 02/09/20 00:00 Troponin I 0.020 ng/mL (< 0.028) 02/08/20 00:08 Serum Total Protein 5.9 g/dL (6.0-8.3) L 02/08/20 00:08 Albumin 3.4 g/dL (3.4-4.8) 02/08/20 00:08 Lipase 14 U/L (8-78) 02/08/20 00:08 Urine Ketones Negative mg/dL (Negative) 02/09/20 00:57 Urine Blood Negative (Negative) 02/09/20 00:57 Urine Nitrite 1+ (Negative) A 02/09/20 00:57 Ur Leukocyte Esterase 500 Aishwarya/uL (Negative) A 02/09/20 00:57 Urine RBC 0-3 HPF (0-3) 02/09/20 00:57 Urine WBC 21-50 HPF (0-3) A 02/09/20 00:57 Ur Squamous Epith Cells None Seen HPF (0-3) 02/09/20 00:57 Urine Bacteria 3+ HPF (None Seen) A 02/09/20 00:57 - Radiology Interpretation Chest x-ray Status: image reviewed by me (No acute intracranial process) Hospitalist H&P A/P - Problem (1) Metabolic encephalopathy Code(s): G93.41 - METABOLIC ENCEPHALOPATHY Status: Acute (2) UTI (urinary tract infection) Status: Acute (3) Chronic hepatitis B Code(s): B18.1 - CHRONIC VIRAL HEPATITIS B WITHOUT DELTA-AGENT Status: Acute (4) Hypertension Code(s): I10 - ESSENTIAL (PRIMARY) HYPERTENSION Status: Chronic (5) Hypokalemia Code(s): E87.6 - HYPOKALEMIA Status: Acute - Plan Plan: Admit patient to Telemetry. Urine cultures and blood cultures obtained in the ED. Status post IV Rocephin and Vanco in the ED. We will continue same antibiotics. Follow cultures. Dupont catheter insertion and maintain for urinary retention. Pain management as needed. Continue entecavir for hepatitis B. Neurochecks. Replace potassium orally. I am unable to discuss advanced care planning at this time given altered mental status and no family member by her bedside.
[2020-02-09] MEDS ORDERED: Lorazepam 2 MG/ML VIAL ONE ×2 (02:41→02:56)
[2020-02-09] MEDS ORDERED: Morphine 2 MG/ML VIAL SLOW IVP PRN (02:45)
[2020-02-09] MEDS ORDERED: Sodium Chloride 0.9% 1,000 ML IV SCH (02:45)
[2020-02-09 03:46] LABS: Bacteria/HPF 4+ HPF (None Seen); Bilirubin Negative (Negative); Blood, Urine 1+ (Negative); Clarity Extra Turbid (Clear); Glucose, Urine (Dipstick) Normal (Negative); Ketone, Urine Trace mg/dL (Negative); Leukocyte 500 Leu/uL (Negative); Nitrite 1+ (Negative); Protein, Urine (Dipstick) 50 mg/dL (Neg-Trace); Specific Gravity, Urine 1.006 (1.002-1.036); Squamous Epithelial 0-3 HPF (0-3); Urobilinogen Normal mg/dL (Less than 2); WBC/HPF Greater than 50 HPF (0-3)
[2020-02-09 06:18] LABS: #Eosinphils 0.1 thou/uL (0.0-0.7); #Lymphocytes 0.7 thou/uL (1.20-3.40); #Monocytes 0.5 thou/uL (0.11-0.59); #Neutrophils 5.8 thou/uL (1.40-6.50); %Basophils 0.3 % (0.0-1.0); %Eosinophils 0.9 % (0.0-10.0); %Lymphocytes 9.3 % (21.0-51.0); %Monocytes 7.5 % (0.0-10.0); %Neutrophils 82.1 % (42.0-75.0); Hemoglobin 10.7 g/dL (12.0-16.0); Mean Corpuscular Hemoglobin 29.4 pg (27.0-31.0); Mean Corpuscular Volume 88.9 fL (78.0-98.0); Mean Platelet Volume 7.8 fL (7.4-10.4); Platelet Count 200 thou/uL (130-400); RBC Distribution Width 12.5 % (11.5-14.5); Red Blood Cell (RBC) Count 3.65 mill/uL (4.20-5.40); White Blood Cell (WBC) Count 7.1 thou/uL (4.8-10.8)
[2020-02-09 06:33] LABS: Anion Gap 11 mmol/L (10-20); BUN (Urea Nitrogen) 7 mg/dL (9.8-20.1); Calc. Creatinine Clearance 63 mL/min (70-130); Calcium 8.5 mg/dL (7.8-10.44); Carbon Dioxide 27 mmol/L (23-31); Chloride 107 mmol/L (98-107); Estimated GFR-MDRD 68; Glucose 110 mg/dL (83-110); Sodium 142 mmol/L (136-145)
[2020-02-09 06:38] LABS: Potassium 2.8 mmol/L (3.5-5.1)
[2020-02-09] MEDS ORDERED: Potassium Chloride 20 MEQ TAB PO SCH (06:45)
--- NOTE | 2020-02-09 07:29 | CT ---
PRELIMINARY REPORT/[facility]/EMERGENCY AFTER HOURS PROCEDURE EXAM: CT Head Without Intravenous Contrast. CLINICAL HISTORY: 74-year-old female brought in by EMS minimal history is provided as the patient is altered. Patient w as altered at home and son called EMS for worsening altered mental status. Patient provides very little history but notes that she has been throwing up for several days she is alert and oriented x2, person, place but not time TECHNIQUE: Axial computed tomography images of the head/brain without intravenous contrast. COMPARISON: CT\SR - CT BRAIN WO CON - 10/15/2014 09:36 AM CDT FINDINGS: BRAIN: No acute intraparenchymal hemorrhage. No new mass lesion. No CT evidence for acute territorial infarc t. No midline shift or extra-axial collection. Stable fracture calcifications in the left basal ganglia that measures 1 x 1.3 cm. No mass-effect or midline shift. This may represent partly calcified mass or prior infection. VENTRICLES: No hydrocephalus. ORBITS: The orbits are unremarkable. SINUSES AND MASTOIDS: The paranasal sinuses and mastoid air cells are clear. SOFT TISSUES: No significant facial or scalp soft tissue swelling evident. No radiopaque foreign body is seen. BONES: No acute skull fracture. IMPRESSION: Stable CT scan of the head. No acute intracranial abnormality. ELECTRONICALLY SIGNED BY: Shruthi Davis MD Feb 09, 2020 12:31:46 AM CDT This report is intended for review by the ordering physician only, in accordance of law. If you recei ve this report in error, please call [facility] at [phone]. FINAL REPORT Exam: Head CT without contrast HISTORY: Altered mental status COMPARISON: 10/15/2014 FINDINGS: Hemorrhage: No intraparenchymal hemorrhage or extra-axial hematoma. Brain parenchyma: Cortical murguia-white matter differentiation is preserved. No mass effect or midline shift. Basilar cisterns are patent.Stable calcification centered in the left deep murguia matter structures Ventricular system: Ventricles and sulci are patent and symmetric. Calvarium: Intact. Sinuses and mastoid air cells: Adequate aeration. IMPRESSION: 1. This report is in agreement with initial report by [facility]. 2. No acute intracranial process. Transcribed Date/Time: 02/09/2020 7:34 AM
--- NOTE | 2020-02-09 07:36 | CT ---
PRELIMINARY REPORT/[facility]/EMERGENCY AFTER HOURS PROCEDURE EXAM: CT Abdomen and Pelvis Without Intravenous Contrast CLINICAL HISTORY: 74-year-old female brought in by EMS minimal history is provided as the patient is altered. Patient w as altered at home and son called EMS for worsening altered mental status. Patient provides very little history but notes that she has been throwing up for several days she is alert and oriented x2, person, place but not time TECHNIQUE: Axial computed tomography images of the abdomen and pelvis without intravenous contrast. CONTRAST: None. COMPARISON: None provided. FINDINGS: LUNG BASES: No basilar airspace consolidation or pleural effusion. LIVER: Unremarkable. GALLBLADDER AND BILE DUCTS: Mildly distended. No wall thickening No calcified stone. No ductal dilation. PANCREAS: Unremarkable. SPLEEN: Unremarkable. ADRENAL GLANDS: Unremarkable. KIDNEYS, URETERS, AND BLADDER: Unremarkable. No hydronephrosis or nephrolithiasis. No ureteral or bladder calculi. Urinary bladder is moderately distended. There is an air-fluid level. No wall thickening or filling d efects. STOMACH AND BOWEL: No obstruction. No wall thickening. No CT evidence of colitis or acute diverticulitis. APPENDIX: No CT evidence for appendicitis. PERITONEUM: No free fluid. No free air. LYMPH NODES: No lymphadenopathy. REPRODUCTIVE: Unremarkable as visualized. VASCULATURE: No aortic aneurysm. ABDOMINAL WALL AND SOFT TISSUES: Unremarkable. BONES: Osteopenia. There is lumbar spondylosis and degenerative disc disease. Posterior fusion hard robledo noted at L4-5 with grade 1 and 2 listhesis at L4-5. No fracture or suspicious osseous abnormality. There is a healed fracture through the lower sacrum. IMPRESSION: Distended urinary bladder. Recommend clinical correlation for retention or outlet obstruction Air within the bladder which can be seen with infection versus recent instrumentation. No bladder wa ll thickening or filling defects. ELECTRONICALLY SIGNED BY: Shruthi Davis MD Feb 09, 2020 12:37:49 AM CDT This report is intended for review by the ordering physician only, in accordance of law. If you recei ve this report in error, please call [facility] at [phone]. FINAL REPORT Exam: Abdomen CT without contrast Pelvic CT without contrast HISTORY: Pain. Altered mental status. Emesis. COMPARISON: None FINDINGS: Abdomen CT: Lung bases:Clear Heart size: Normal size Aorta: Atherosclerotic. Solid organs: Limited evaluation by the lack of IV contrast. Grossly no solid organ abnormality. Lymph nodes: No gastrohepatic, retrocrural or periportal lymphadenopathy Gallbladder: Unremarkable Mesentery: No mass, lymphadenopathy, free air or free fluid Kidneys: Bilaterally, no hydronephrosis, nephrolithiasis or perinephric fat stranding. Bilateral uret ers have a normal caliber. No hydroureter, periureteral fat stranding or ureterolithiasis. Alimentary canal: Normal caliber appendix. No bowel obstruction CT PELVIS: No mass, adenopathy, free air or free fluid. Grossly unremarkable reproductive organs. Urinary bladder: Air-fluid level in the bladder. Correlate for recent Dupont catheterization. Signific ant amount of urine is still present in the bladder. Osseous structures: No lytic or blastic lesions IMPRESSION: 1. This report is in agreement with initial report by [facility]. 2. No evidence of obstructive uropathy. 2. Normal caliber appendix. 4. Air-fluid level in the urinary bladder which is presumed to be due to recent Dupont catheterization . Consider urinalysis if there is concern for possible cystitis. Transcribed Date/Time: 02/09/2020 7:39 AM
--- NOTE | 2020-02-09 07:43 | RAD ---
XR Chest 1 View Portable History: Shortness of breath Comparison: Radiograph 2019 Findings: Lungs are clear. No pneumothorax or effusion. Cardiac silhouette and mediastinal contours a re within normal limits. No acute osseous abnormality. Bilateral rotator cuff arthropathy. Impression: No acute intrathoracic abnormality.
[2020-02-09] MEDS ORDERED: Adenosine 6 MG/2 ML VIAL ONE (07:44)
[2020-02-09] MEDS ORDERED: Digoxin 0.5 MG/2 ML AMP ONE (07:52)
[2020-02-09] MEDS ORDERED: Metoprolol Tartrate 5 MG/5 ML VIAL ONE (07:56)
[2020-02-09] MEDS ORDERED: Diltiazem 125 MG in Sodium Chloride 0.9% 100 ML IVPB SCH ×3 (08:00)
[2020-02-09] MEDS ORDERED: Potassium Chloride 20 MEQ in Premix Bag 1 BAG IVPB SCH (08:00)
[2020-02-09] MEDS ORDERED: Metoprolol Tartrate 5 MG/5 ML VIAL IVP SCH (08:00)
[2020-02-09] MEDS ORDERED: Potassium Chloride 20 MEQ/100 ML PREMIX BAG IVPB SCH (08:00)
[2020-02-09] MEDS ORDERED: Metoprolol Tartrate 25 MG TAB PO SCH (08:15)
[2020-02-09] MEDS ORDERED: Vancomycin HCl 1 GM in Sodium Chloride 0.9% 250 ML 250 ML IVPB SCH (09:00)
[2020-02-09] MEDS: Enoxaparin Sodium 40 MG/0.4 ML SYRINGE SC SCH (09:49)
[2020-02-09] MEDS: Potassium Chloride 20 MEQ TAB PO SCH (10:06)
[2020-02-09] MEDS ORDERED: DULoxetine 60 MG CAP PO SCH (10:15)
[2020-02-09] MEDS ORDERED: Anastrozole 1 MG TAB PO SCH (10:15)
[2020-02-09] MEDS ORDERED: Folic Acid 1 MG TAB PO SCH (10:15)
[2020-02-09 13:02] LABS: SARS-CoV-2 MS2 Positive; SARS-CoV-2 N Gene Negative; SARS-CoV-2 S Gene Negative; SARS-CoV-2 by NAA Not Detected (NotDetected); SARS-CoV-2 orf1ab Negative
[2020-02-09 14:25] LABS: Anion Gap 11 mmol/L (10-20); BUN (Urea Nitrogen) 5 mg/dL (9.8-20.1); Calc. Creatinine Clearance 66 mL/min (70-130); Calcium 8.7 mg/dL (7.8-10.44); Carbon Dioxide 27 mmol/L (23-31); Chloride 107 mmol/L (98-107); Estimated GFR-MDRD 71; Glucose 94 mg/dL (83-110); Potassium 3.4 mmol/L (3.5-5.1); Sodium 142 mmol/L (136-145)
[2020-02-09] MEDS ORDERED: Lorazepam 2 MG/ML VIAL SLOW IVP SCH (15:00)
--- NOTE | 2020-02-09 18:26 | CON ---
DATE OF CONSULTATION: 02/09/2020 REASON FOR CONSULTATION: Atrial fibrillation with a rapid rate. PRIMARY BONE COOKING OPERATOR: Dr. Ever Underwood. HISTORY OF PRESENT ILLNESS: Ms. Rodrigues is a 74-year-old woman with history of atrial fibrillation. She was admitted on this occasion with disorientation and altered mental status and also vomiting. The patient had an episode of atrial fibrillation with a rapid rate this morning. She had an episode of atrial fibrillation with a rapid rate a year ago. Saw Dr. Underwood in the hospital, started on beta-blockers. The patient's mental status is improved since she has been here. She sounds like she did receive some intravenous fluid and is feeling overall much better. Medications at home not really clear as her mental status is still not adequate to be certain. It is listed as being on apixaban 5 mg twice a day, amlodipine 10 mg a day, metoprolol succinate 50 mg a day, furosemide 20 mg twice a day. REVIEW OF SYSTEMS: Really not accurate or obtainable currently. PHYSICAL EXAMINATION: GENERAL: This is a pleasant 74-year-old woman, in no distress. VITAL SIGNS: Blood pressure 149/80, pulse 106. LUNGS: Clear. I do not hear any wheezing. Few basilar rales. CARDIAC: Normal S1, normal S2. There is no murmur, rub, or gallop. ABDOMEN: Soft and nontender. No hepatosplenomegaly. EXTREMITIES: Warm, dry. No clubbing. No cyanosis. There is no edema. DIAGNOSTIC STUDIES: EKG did show atrial fibrillation with a rapid rate. Rate got up to 200. She is in sinus rhythm, sinus tachycardia. PERTINENT LABORATORY DATA: Hemoglobin is 10.7. Potassium was 2.8, phosphorus was 2.0. Benzodiazepines were detected. The patient had an evaluation a year ago that included an echocardiogram done. Ejection fraction at that time was 45% to 50% ASSESSMENT: 1. Atrial fibrillation with a rapid rate. 2. Altered mental status, improved. 3. Hypokalemia. PLAN: 1. Continue to replete potassium. 2. Beta-blockers have been resumed. 3. We will resume Eliquis likely tomorrow. 4. Consideration for outpatient stress testing to be done with follow up with Dr. Underwood. Job ID: [id number] MTDD
[2020-02-09] MEDS: Folic Acid 1 MG TAB PO SCH (20:43)
[2020-02-09] MEDS: Metoprolol Tartrate 25 MG TAB PO SCH (20:43)
[2020-02-09] MEDS ORDERED: FLU VACC QS2020-21(65YR UP)/PF 240 MCG/0.7 ML SYRINGE IM ONE (21:00)
[2020-02-09] MEDS ORDERED: Lorazepam 0.5 MG TAB PO SCH (23:45)
[2020-02-09] MEDS ORDERED: cefTRIAXone\\ROCEPHIN 1 GM in Sodium Chloride 0.9% 100 ML IVPB SCH (23:59)
[2020-02-10] MEDS: Vancomycin HCl 1.25 GM in Sodium Chloride 0.9% 250 ML 250 ML IVPB SCH (01:29)
[2020-02-10] MEDS: Lorazepam 1 MG TAB PO PRN ×2 (01:40→07:19)
[2020-02-10] MEDS: ALPRAZolam 0.5 MG TAB PO PRN (03:44)
[2020-02-10] MEDS ORDERED: Magnesium 2 GM/50 ML 2 GM in Premix Bag 1 BAG IVPB SCH (08:00)
[2020-02-10] MEDS: Lorazepam 2 MG/ML VIAL SLOW IVP PRN ×2 (08:57→20:22)
[2020-02-10] MEDS: DULoxetine 60 MG CAP PO SCH (09:41)
[2020-02-10] MEDS: Anastrozole 1 MG TAB PO SCH (09:42)
[2020-02-10] MEDS: Potassium Chloride 20 MEQ TAB PO SCH (09:42)
[2020-02-10] MEDS: Folic Acid 1 MG TAB PO SCH ×3 (09:42→20:28)
[2020-02-10] MEDS: Metoprolol Tartrate 25 MG TAB PO SCH (09:42)
[2020-02-10] MEDS: Enoxaparin Sodium 40 MG/0.4 ML SYRINGE SC SCH (09:43)
--- NOTE | 2020-02-10 11:17 | EKG ---
Test Reason : Blood Pressure : / mmHG Vent. Rate : 112 BPM Atrial Rate : 112 BPM P-R Int : 128 ms QRS Dur : 086 ms QT Int : 386 ms P-R-T Axes : 038 -05 145 degrees QTc Int : 526 ms Sinus tachycardia Abnormal ECG Confirmed by BRADY MADDOX ([id number]), automotive electrician DAWOOD MARIE ([id number]) on 02/10/2020 11:17:02 AM Referred By: JHON MADDOX Confirmed By:BRADY MADDOX
--- NOTE | 2020-02-10 14:58 | PDOC.HOSPP ---
- Subjective Encounter Date: 02/10/20 Encounter Time: 14:45 Subjective: f/u for AMS, UTI with E. coli on Rocephin. Received Ativan/Xanax overnight due to agitation and combativeness. Mainly sleeping today after receiving IV Ativan early this am shift per nursing. - Objective Vital Signs & Weight: Vital Signs (12 hours) Temp Pulse Resp BP BP Pulse Ox 02/10/20 11:19 97.2 F L 76 17 154/74 H 96 02/10/20 09:02 99.0 F 02/10/20 08:00 99 19 140/78 96 02/10/20 04:00 98.4 F 95 18 140/80 97 Weight Admit Weight 144 lb 9.6 oz Weight 145 lb 8 oz I&O: 02/09/20 02/10/20 02/11/20 06:59 06:59 06:59 Intake Total 1460 Output Total 2500 Balance -1040 Result Diagrams: 02/09/20 06:03 02/09/20 13:33 Additional Labs: Microbiology 02/09/20 00:57 Urine Straight Catheter Urine Culture - Preliminary Escherichia coli 02/09/20 00:09 Venous blood - Right Arm Blood Culture - Preliminary Gram Positive Cocci 02/08/20 00:08 Venous blood - Left Arm Blood Culture - Preliminary Specimen has been received and culture in progress. No Growth to date. Laboratory Tests 02/08/20 02/08/20 02/08/20 00:08 00:08 00:08 Hgb 12.2 Potassium 3.0 L Lactic Acid 1.8 Phosphorus Magnesium Ammonia Troponin I Free T4 TSH 3rd Generation SARS-CoV-2 (PCR) 02/08/20 02/08/20 02/09/20 00:08 00:08 00:00 Hgb Potassium Lactic Acid Phosphorus Magnesium Ammonia 27 Troponin I 0.020 Free T4 1.30 TSH 3rd Generation 1.3601 SARS-CoV-2 (PCR) 02/09/20 02/09/20 02/09/20 01:42 06:03 08:05 Hgb Potassium 2.8 L* Lactic Acid Phosphorus Magnesium 2.1 Ammonia Troponin I Free T4 TSH 3rd Generation SARS-CoV-2 (PCR) Not Detected 02/09/20 02/09/20 02/09/20 08:05 08:05 10:32 Hgb Potassium Lactic Acid Phosphorus 2.0 L Magnesium Ammonia Troponin I 0.017 0.021 Free T4 TSH 3rd Generation SARS-CoV-2 (PCR) 02/09/20 13:33 Hgb Potassium Lactic Acid Phosphorus Magnesium Ammonia Troponin I 0.024 Free T4 TSH 3rd Generation SARS-CoV-2 (PCR) Radiology Reviewed by me: Yes (CT brain - no acute process) EKG Reviewed by me: Yes (Tele - sinus ramos) Hospitalist ROS - Medication Medications: Active Medications Generic Name Dose Route Start Last Admin Trade Name Freq PRN Reason Stop Dose Admin Alprazolam 0.5 mg 02/09/20 09:07 02/10/20 03:44 Alprazolam 0.5 Mg Tab PO 0.5 mg HS PRN Administration Anxiety Anastrozole 1 mg 02/10/20 09:00 02/10/20 09:42 Anastrozole 1 Mg Tab PO 1 mg DAILY SARAH Administration Duloxetine HCl 120 mg 02/10/20 09:00 02/10/20 09:41 Duloxetine 60 Mg Cap PO 60 mg DAILY SARAH Administration Enoxaparin Sodium 40 mg 02/09/20 09:00 02/10/20 09:43 Enoxaparin Sodium 40 Mg/0.4 Ml Syringe SC 40 mg 0900 SARAH Administration Folic Acid 1 mg 02/09/20 21:00 02/10/20 09:42 Folic Acid 1 Mg Tab PO 1 mg BID SARAH Administration Vancomycin HCl 1.25 gm/ Sodium 250 mls @ 166.667 mls/hr 02/10/20 02:00 02/10/20 01:29 Chloride IVPB 250 mls 0200 SARAH Administration Lorazepam 1 mg 02/09/20 14:51 02/10/20 07:19 Lorazepam 1 Mg Tab PO 1 mg Q4H PRN Administration Anxiety/Agitation Lorazepam 1 mg 02/10/20 07:41 02/10/20 08:57 Lorazepam 2 Mg/Ml Vial SLOW IVP 1 mg Q6H PRN Administration AGITATION Metoprolol Succinate 100 mg 02/10/20 09:00 02/10/20 09:42 Metoprolol Succinate Xl 100 Mg Tab PO 100 mg DAILY SARAH Administration Metoprolol Tartrate 25 mg 02/09/20 21:00 02/10/20 09:42 Metoprolol Tartrate 25 Mg Tab PO 25 mg BID SARAH Administration Pantoprazole Sodium 40 mg 02/09/20 09:00 02/10/20 09:57 Pantoprazole 40 Mg Tab PO Not Given DAILY [facility] Potassium Chloride 40 meq 02/09/20 08:00 02/10/20 09:42 Potassium Chloride 20 Meq Tab PO 20 meq 0800 SARAH Administration - Exam General - other findings: sleeping, awakes briefly to name Eye: PERRL, anicteric sclera ENT: normocephalic atraumatic, no oropharyngeal lesions Neck: supple, symmetric, no JVD, no thyromegaly, no lymphadenopathy Heart: RRR, no gallops, no rubs, normal peripheral pulses Heart - other findings: S1, S2 Respiratory: CTAB, no wheezes, no rales, no ronchi, normal chest expansion, no tachypnea Gastrointestinal: soft, non-tender, non-distended, normal bowel sounds, no palpable masses Extremities: no cyanosis, no clubbing Skin: normal turgor, no lesions Neurological: cranial nerve grossly intact, no new deficit Musculoskeletal: normal tone, generalized weakness Psychiatric: oriented to person, flat affect, somnolent, lethargic Hosp A/P (1) Metabolic encephalopathy Code(s): G93.41 - METABOLIC ENCEPHALOPATHY Status: Acute Plan: Likely multifactorial including UTI, continue supportive mgmt (2) UTI (urinary tract infection) Status: Acute Plan: E.coli spp isolated, Rocephin IV daily (3) Chronic hepatitis B Code(s): B18.1 - CHRONIC VIRAL HEPATITIS B WITHOUT DELTA-AGENT Status: Acute Plan: Continue Entecavir (4) Hypokalemia Code(s): E87.6 - HYPOKALEMIA Status: Acute Plan: Start IV NS with KCL, serial K+ monitoring - Plan continue antibiotics, PT/OT, director of social work, out of bed/ambulate, DVT proph w/SCDs Stable currently Continue Ativan IV PRN agitation/combativeness Limit sedation for daytime NS with KCL IV @ 75ml/h Await final Ucx AM lab: BMP, CBC
[2020-02-10] MEDS: cefTRIAXone\\ROCEPHIN 2 GM in Sodium Chloride 0.9% 100 ML IVPB SCH (16:56)
[2020-02-10] MEDS: NS 0.9% w/ 40 MEQ KCL 1,000 ML IV SCH (18:21)
--- NOTE | 2020-02-10 23:39 | PDOC.EVN ---
Event Note - Event Note Event Note: Late entry note 02/09: TIme of exam: 8:00 am Denise kate called this am. She was in SVt with heart rate 200 but then later it appeared like aflutter. SHe was given 2 doses of IV cardizem and one dose of digoxin. SHe was started on cardizem drip which was then removed when she converted to sinus rhythm Patient had no complaints. SHe denied palpitations, lightheadedness or dizziness General: alert, awake oriented times three CVS: RRR, no murmurs, rubs, gallops Lungs : CTAB Abdomen: +BS, soft, nontender, nondistended Ext: no edema THis is 74 year old female admitted for UTI , found to be in SVT/afib this morning Sepsis possibly from UTI - had AMS, tachycardia. Urine culture preliminarily showing young growth. UA showing 500 leukocyte esterase, > 50 WBC - continue IV ceftriaxone - blood culture 1/2 gram positive cocci, likely contaminant Hypokalemia - potassium 3.4, recheck SVT/AFib - converted to sinus rhythm with cardizem and digoxin, now in normal sinus rhythm - on metoprolol 25 mg bid Continue eliquis Anemia - HB 10.7, recheck in am Hep B - continue entacavir
[2020-02-11 01:22] LABS: Vancomycin, Trough 6.6 ug/mL
[2020-02-11] MEDS: Vancomycin HCl 1.25 GM in Sodium Chloride 0.9% 250 ML 250 ML IVPB SCH (01:30)
[2020-02-11] MEDS: Lorazepam 2 MG/ML VIAL SLOW IVP PRN ×2 (01:31→08:07)
[2020-02-11 04:55] LABS: #Eosinphils 0.1 thou/uL (0.0-0.7); #Monocytes 0.7 thou/uL (0.11-0.59); #Neutrophils 7.2 thou/uL (1.40-6.50); %Basophils 0.3 % (0.0-1.0); %Eosinophils 0.8 % (0.0-10.0); %Lymphocytes 11.2 % (21.0-51.0); %Monocytes 7.8 % (0.0-10.0); %Neutrophils 79.9 % (42.0-75.0); Hemoglobin 10.6 g/dL (12.0-16.0); Mean Corpuscular HGB CONC 32.4 g/dL (32.0-36.0); Mean Corpuscular Hemoglobin 28.4 pg (27.0-31.0); Mean Corpuscular Volume 87.8 fL (78.0-98.0); Mean Platelet Volume 7.6 fL (7.4-10.4); Platelet Count 200 thou/uL (130-400); RBC Distribution Width 12.6 % (11.5-14.5); Red Blood Cell (RBC) Count 3.72 mill/uL (4.20-5.40); White Blood Cell (WBC) Count 9.1 thou/uL (4.8-10.8)
[2020-02-11 05:23] LABS: Anion Gap 15 mmol/L (10-20); BUN (Urea Nitrogen) 8 mg/dL (9.8-20.1); Calc. Creatinine Clearance 65 mL/min (70-130); Calcium 9.1 mg/dL (7.8-10.44); Carbon Dioxide 26 mmol/L (23-31); Chloride 109 mmol/L (98-107); Estimated GFR-MDRD 69; Glucose 112 mg/dL (83-110); Sodium 147 mmol/L (136-145)
[2020-02-11] MEDS: NS 0.9% w/ 40 MEQ KCL 1,000 ML IV SCH (06:45)
[2020-02-11] MEDS: DULoxetine 60 MG CAP PO SCH ×2 (09:25→09:41)
[2020-02-11] MEDS: Apixaban 5 MG TAB PO SCH ×2 (09:25→09:40)
[2020-02-11] MEDS: Folic Acid 1 MG TAB PO SCH ×3 (09:25→21:21)
[2020-02-11] MEDS: Potassium Chloride 20 MEQ TAB PO SCH ×2 (09:26→09:40)
[2020-02-11] MEDS: Anastrozole 1 MG TAB PO SCH ×2 (09:26→09:40)
[2020-02-11] MEDS ORDERED: Potassium Chloride 20 MEQ/100 ML PREMIX BAG IVPB SCH (10:15)
[2020-02-11] MEDS ORDERED: Potassium Chloride 20 MEQ in Premix Bag 1 BAG IVPB SCH (10:30)
[2020-02-11] MEDS ORDERED: Enoxaparin Sodium 40 MG/0.4 ML SYRINGE SC SCH (10:30)
[2020-02-11] MEDS ORDERED: Ziprasidone 20 MG VIAL IM PRN ×2 (12:00→17:00)
--- NOTE | 2020-02-11 12:03 | PDOC.HOSPP ---
- Subjective Encounter Date: 02/11/20 Encounter Time: 12:00 Subjective: f/u for AMS and UTI on current Rocephin. Remains combative/agitated, minimal improvement with Ativan. - Objective Vital Signs & Weight: Vital Signs (12 hours) Temp Pulse Resp BP BP Pulse Ox 02/11/20 07:15 99.9 F H 62 18 160/74 H 93 L 02/11/20 03:57 99.4 F 67 14 163/70 H 97 Weight Admit Weight 144 lb 9.6 oz Weight 145 lb 7.305 oz I&O: 02/10/20 02/11/20 02/12/20 06:59 06:59 06:59 Intake Total 1460 1000 Output Total 2500 1550 Balance -1040 -550 Result Diagrams: 02/11/20 03:53 02/11/20 03:53 Additional Labs: Microbiology 02/09/20 00:57 Urine Straight Catheter Urine Culture - Preliminary Escherichia coli 02/09/20 00:57 Urine Straight Catheter Urine Culture - Preliminary Escherichia coli 02/09/20 00:09 Venous blood - Right Arm Blood Culture - Preliminary Gram Positive Cocci 02/09/20 00:09 Venous blood - Right Arm Blood Culture - Preliminary Alpha-Strep, not S. pneumoniae 02/08/20 00:08 Venous blood - Left Arm Blood Culture - Preliminary Specimen has been received and culture in progress. No Growth to date. Laboratory Tests 02/08/20 02/08/20 02/08/20 00:08 00:08 00:08 Hgb 12.2 Neutrophils % Sodium Potassium 3.0 L Lactic Acid 1.8 Phosphorus Magnesium Ammonia Troponin I Free T4 TSH 3rd Generation SARS-CoV-2 (PCR) 02/08/20 02/08/20 02/09/20 00:08 00:08 00:00 Hgb Neutrophils % Sodium Potassium Lactic Acid Phosphorus Magnesium Ammonia 27 Troponin I 0.020 Free T4 1.30 TSH 3rd Generation 1.3601 SARS-CoV-2 (PCR) 02/09/20 02/09/20 02/09/20 01:42 06:03 06:03 Hgb 10.7 L Neutrophils % 82.1 H Sodium Potassium 2.8 L* Lactic Acid Phosphorus Magnesium Ammonia Troponin I Free T4 TSH 3rd Generation SARS-CoV-2 (PCR) Not Detected 02/09/20 02/09/20 02/09/20 08:05 08:05 08:05 Hgb Neutrophils % Sodium Potassium Lactic Acid Phosphorus 2.0 L Magnesium 2.1 Ammonia Troponin I 0.017 Free T4 TSH 3rd Generation SARS-CoV-2 (PCR) 02/09/20 02/09/20 02/09/20 10:32 13:33 13:33 Hgb Neutrophils % Sodium 142 Potassium 3.4 L Lactic Acid Phosphorus Magnesium Ammonia Troponin I 0.021 0.024 Free T4 TSH 3rd Generation SARS-CoV-2 (PCR) 02/11/20 03:53 Hgb Neutrophils % 79.9 H Sodium Potassium Lactic Acid Phosphorus Magnesium Ammonia Troponin I Free T4 TSH 3rd Generation SARS-CoV-2 (PCR) EKG Reviewed by me: Yes (Tele - SR) Hospitalist ROS - Medication Medications: Active Medications Generic Name Dose Route Start Last Admin Trade Name Freq PRN Reason Stop Dose Admin Alprazolam 0.5 mg 02/09/20 09:07 02/10/20 03:44 Alprazolam 0.5 Mg Tab PO 0.5 mg HS PRN Administration Anxiety Anastrozole 1 mg 02/10/20 09:00 02/11/20 09:40 Anastrozole 1 Mg Tab PO Not Given DAILY SARAH Duloxetine HCl 120 mg 02/10/20 09:00 02/11/20 09:41 Duloxetine 60 Mg Cap PO Not Given DAILY SARAH Folic Acid 1 mg 02/09/20 21:00 02/11/20 09:41 Folic Acid 1 Mg Tab PO Not Given BID SARAH Ceftriaxone Sodium 2 gm/ 100 mls @ 200 mls/hr 02/10/20 14:44 02/10/20 16:56 Sodium Chloride IVPB 100 mls Q24HR SARAH Administration Potassium Chloride/Sodium Chloride 1,000 mls @ 75 mls/hr 02/10/20 15:15 02/11/20 06:45 Ns 0.9% W/ 40 Meq Kcl IV 1,000 mls .[id number] SARAH Administration Potassium Chloride 20 meq/ 100 mls @ 50 mls/hr 02/11/20 10:30 02/11/20 10:55 Device IVPB 02/11/20 12:29 100 mls 1030 SARAH Administration Lorazepam 1 mg 02/09/20 14:51 02/10/20 07:19 Lorazepam 1 Mg Tab PO 1 mg Q4H PRN Administration Anxiety/Agitation Lorazepam 1 mg 02/10/20 07:41 02/11/20 08:07 Lorazepam 2 Mg/Ml Vial SLOW IVP 1 mg Q6H PRN Administration AGITATION Metoprolol Succinate 100 mg 02/10/20 09:00 02/11/20 09:41 Metoprolol Succinate Xl 100 Mg Tab PO Not Given DAILY SARAH Pantoprazole Sodium 40 mg 02/09/20 09:00 02/11/20 09:41 Pantoprazole 40 Mg Tab PO Not Given DAILY SARAH Potassium Chloride 40 meq 02/09/20 08:00 02/11/20 09:40 Potassium Chloride 20 Meq Tab PO Not Given 0800 SARAH - Exam General - other findings: restless, agitated, thrashing in bed Eye: PERRL, anicteric sclera ENT: normocephalic atraumatic, no oropharyngeal lesions Neck: supple, symmetric, no JVD, no thyromegaly, no lymphadenopathy Heart: RRR, no gallops, no rubs, normal peripheral pulses Heart - other findings: S1, S2 Respiratory: CTAB, no wheezes, no rales, no ronchi, normal chest expansion Gastrointestinal: soft, non-tender, non-distended, normal bowel sounds, no palpable masses Extremities: no cyanosis, no clubbing, no edema Skin: normal turgor Psychiatric: not oriented Psychiatric - other findings: oriented x 0, agitated/combative Hosp A/P (1) Metabolic encephalopathy Code(s): G93.41 - METABOLIC ENCEPHALOPATHY Status: Acute Plan: Multifactorial including UTI, trial Geodon 20mg IM x 1 now then 10mg IM q2h PRN combativeness/agitation (2) UTI (urinary tract infection) Status: Acute Plan: E. coli spp pansensitive, continue Rocephin (3) Hypokalemia Code(s): E87.6 - HYPOKALEMIA Status: Acute Plan: KCL supplementation, serial K+ monitoring (4) Hypernatremia Code(s): E87.0 - HYPEROSMOLALITY AND HYPERNATREMIA Status: Acute Plan: Start D5W IV @ 100ml/h, repeat Na+ in am (5) Chronic hepatitis B Code(s): B18.1 - CHRONIC VIRAL HEPATITIS B WITHOUT DELTA-AGENT Status: Acute - Plan continue antibiotics, PT/OT, director of social work, DVT proph w/SCDs Stable currently Continue Ativan IV PRN agitation/combativeness Trial Geodon IM Limit sedation for daytime Start D5W with KCL @ 100ml/h Continue Rocephin 2gm IV daily AM lab: BMP, CBC
[2020-02-11] MEDS: Ziprasidone 20 MG VIAL IM SCH ×2 (12:13→14:45)
[2020-02-11] MEDS ORDERED: Vancomycin 1 GM in Premix Bag 1 BAG IVPB SCH ×2 (14:00→15:30)
[2020-02-11] MEDS ORDERED: Ziprasidone 20 MG VIAL IM SCH (14:45)
[2020-02-11] MEDS ORDERED: Sterile Water 10 ML VIAL FS PRN (14:45)
[2020-02-11] MEDS: Potassium Chloride 40 MEQ in Dextrose 5% in Water 1,000 ML IV SCH ×2 (14:54→21:32)
[2020-02-11] MEDS ORDERED: Vancomycin HCl 1 GM in Sodium Chloride 0.9% 250 ML 250 ML IVPB SCH (15:00)
[2020-02-11] MEDS: cefTRIAXone\\ROCEPHIN 2 GM in Sodium Chloride 0.9% 100 ML IVPB SCH (15:44)
[2020-02-11] MEDS: fentaNYL 50 mcg/hour Patch TD SCH (15:50)
[2020-02-12] MEDS ORDERED: Ziprasidone 20 MG VIAL IM PRN (00:09)
[2020-02-12] MEDS ORDERED: Sterile Water 10 ML VIAL FS PRN (00:15)
[2020-02-12] MEDS ORDERED: Vancomycin 1 GM in Premix Bag 1 BAG IVPB SCH ×2 (03:00→15:00)
[2020-02-12 05:11] LABS: Anion Gap 11 mmol/L (10-20); BUN (Urea Nitrogen) 10 mg/dL (9.8-20.1); Calc. Creatinine Clearance 27 mL/min (70-130); Calcium 8.6 mg/dL (7.8-10.44); Carbon Dioxide 25 mmol/L (23-31); Chloride 112 mmol/L (98-107); Estimated GFR-MDRD 62; Glucose 87 mg/dL (83-110); Sodium 145 mmol/L (136-145)
[2020-02-12] MEDS: Folic Acid 1 MG TAB PO SCH ×3 (08:38→20:45)
[2020-02-12] MEDS: Anastrozole 1 MG TAB PO SCH (08:45)
[2020-02-12] MEDS: DULoxetine 60 MG CAP PO SCH (08:45)
[2020-02-12] MEDS: Enoxaparin Sodium 40 MG/0.4 ML SYRINGE SC SCH (08:45)
[2020-02-12] MEDS: Potassium Chloride 20 MEQ TAB PO SCH (08:45)
[2020-02-12] MEDS: Lorazepam 2 MG/ML VIAL SLOW IVP PRN ×2 (10:18→20:41)
--- NOTE | 2020-02-12 11:48 | PDOC.HOSPP ---
- Subjective Encounter Date: 02/12/20 Encounter Time: 11:20 Subjective: f/u for AMS likely due to narcotic withdrawal/UTI improved currently. Out of restraints and sleeping per son's report at bedside. - Objective Vital Signs & Weight: Vital Signs (12 hours) Temp Pulse Resp BP Pulse Ox 02/12/20 11:25 98.5 F 86 15 111/57 L 96 02/12/20 08:45 98.3 F 78 17 150/81 H 98 02/12/20 04:28 98.9 F 80 16 138/69 97 Weight Admit Weight 144 lb 9.6 oz Weight 65 lb 14.192 oz I&O: 02/11/20 02/12/20 02/13/20 06:59 06:59 06:59 Intake Total 1000 1800 Output Total 1550 1400 Balance -550 400 Result Diagrams: 02/11/20 03:53 02/12/20 04:17 Additional Labs: Microbiology 02/09/20 00:57 Urine Straight Catheter Urine Culture - Preliminary Escherichia coli 02/09/20 00:57 Urine Straight Catheter Urine Culture - Preliminary Escherichia coli 02/09/20 00:09 Venous blood - Right Arm Blood Culture - Preliminary Gram Positive Cocci 02/09/20 00:09 Venous blood - Right Arm Blood Culture - Preliminary Alpha-Strep, not S. pneumoniae 02/08/20 00:08 Venous blood - Left Arm Blood Culture - Preliminary Specimen has been received and culture in progress. No Growth to date. Laboratory Tests 02/08/20 02/08/20 02/08/20 00:08 00:08 00:08 Hgb 12.2 Neutrophils % Sodium Potassium 3.0 L Lactic Acid 1.8 Phosphorus Magnesium Ammonia Troponin I Free T4 TSH 3rd Generation SARS-CoV-2 (PCR) 02/08/20 02/08/20 02/09/20 00:08 00:08 00:00 Hgb Neutrophils % Sodium Potassium Lactic Acid Phosphorus Magnesium Ammonia 27 Troponin I 0.020 Free T4 1.30 TSH 3rd Generation 1.3601 SARS-CoV-2 (PCR) 02/09/20 02/09/20 02/09/20 01:42 06:03 06:03 Hgb 10.7 L Neutrophils % 82.1 H Sodium Potassium 2.8 L* Lactic Acid Phosphorus Magnesium Ammonia Troponin I Free T4 TSH 3rd Generation SARS-CoV-2 (PCR) Not Detected 02/09/20 02/09/20 02/09/20 08:05 08:05 08:05 Hgb Neutrophils % Sodium Potassium Lactic Acid Phosphorus 2.0 L Magnesium 2.1 Ammonia Troponin I 0.017 Free T4 TSH 3rd Generation SARS-CoV-2 (PCR) 02/09/20 02/09/20 02/09/20 10:32 13:33 13:33 Hgb Neutrophils % Sodium 142 Potassium 3.4 L Lactic Acid Phosphorus Magnesium Ammonia Troponin I 0.021 0.024 Free T4 TSH 3rd Generation SARS-CoV-2 (PCR) 02/11/20 03:53 Hgb Neutrophils % 79.9 H Sodium Potassium Lactic Acid Phosphorus Magnesium Ammonia Troponin I Free T4 TSH 3rd Generation SARS-CoV-2 (PCR) EKG Reviewed by me: Yes (Tele - SR) Hospitalist ROS - Medication Medications: Active Medications Generic Name Dose Route Start Last Admin Trade Name Freq PRN Reason Stop Dose Admin Alprazolam 0.5 mg 02/09/20 09:07 02/10/20 03:44 Alprazolam 0.5 Mg Tab PO 0.5 mg HS PRN Administration Anxiety Anastrozole 1 mg 02/10/20 09:00 02/12/20 08:45 Anastrozole 1 Mg Tab PO Not Given DAILY SARAH Duloxetine HCl 120 mg 02/10/20 09:00 02/12/20 08:45 Duloxetine 60 Mg Cap PO Not Given DAILY SARAH Enoxaparin Sodium 40 mg 02/12/20 09:00 02/12/20 08:45 Enoxaparin Sodium 40 Mg/0.4 Ml Syringe SC 40 mg 0900 SARAH Administration Fentanyl 50 mcg 02/11/20 14:30 02/11/20 15:50 Fentanyl 50 Mcg/Hour Patch TD 50 mcg Q3D SARAH Administration Folic Acid 1 mg 02/09/20 21:00 02/12/20 08:38 Folic Acid 1 Mg Tab PO Not Given BID SARAH Ceftriaxone Sodium 2 gm/ 100 mls @ 200 mls/hr 02/10/20 14:44 02/11/20 15:44 Sodium Chloride IVPB 100 mls Q24HR SARAH Administration Potassium Chloride 40 meq/ 1,020 mls @ 100 mls/hr 02/11/20 12:15 02/11/20 21:32 Dextrose/Water IV Not Given .[id number] SARAH Vancomycin HCl 1 gm/ Device 200 mls @ 200 mls/hr 02/12/20 03:00 02/12/20 04:15 IVPB 200 mls 0300,1500 SARAH Administration Lorazepam 2 mg 02/11/20 14:25 02/12/20 10:18 Lorazepam 2 Mg/Ml Vial SLOW IVP 2 mg Q4H PRN Administration AGITATION Metoprolol Succinate 100 mg 02/10/20 09:00 02/12/20 08:46 Metoprolol Succinate Xl 100 Mg Tab PO Not Given DAILY SARAH Pantoprazole Sodium 40 mg 02/09/20 09:00 02/12/20 08:46 Pantoprazole 40 Mg Tab PO Not Given DAILY SARAH Potassium Chloride 40 meq 02/09/20 08:00 02/12/20 08:45 Potassium Chloride 20 Meq Tab PO Not Given 0800 SARAH Sodium Chloride 10 ml 02/11/20 21:00 02/12/20 08:46 Flush - Normal Saline 10 Ml Syringe IVF 10 ml Q12HR SARAH Administration Ziprasidone 20 mg 02/11/20 17:00 02/11/20 21:18 Ziprasidone 20 Mg Vial IM 20 mg Q2H PRN Administration Agitation - Exam General - other findings: sleeping, calm Eye: PERRL, anicteric sclera ENT: normocephalic atraumatic, no oropharyngeal lesions Neck: supple, symmetric, no JVD, no thyromegaly, no lymphadenopathy Heart: RRR, no gallops, no rubs, normal peripheral pulses Heart - other findings: S1, S2 Respiratory: CTAB, no wheezes, no rales, no ronchi, normal chest expansion, no tachypnea Gastrointestinal: soft, non-tender, non-distended, normal bowel sounds, no palpable masses Extremities: no cyanosis, no clubbing, no edema Skin: normal turgor Neurological: no new deficit Musculoskeletal: generalized weakness Psychiatric: oriented to person, flat affect, somnolent Hosp A/P (1) Metabolic encephalopathy Code(s): G93.41 - METABOLIC ENCEPHALOPATHY Status: Acute Plan: Likely multifactorial including UTI/narcotic withdrawal, continue supportive mgmt (2) UTI (urinary tract infection) Status: Acute Plan: E. coli spp, continue Rocephin (3) Hypokalemia Code(s): E87.6 - HYPOKALEMIA Status: Acute Plan: KCL supplementation, serial K+ monitoring (4) Hypernatremia Code(s): E87.0 - HYPEROSMOLALITY AND HYPERNATREMIA Status: Acute Plan: Improved, continue D5W, serial Na+ monitoring (5) Chronic hepatitis B Code(s): B18.1 - CHRONIC VIRAL HEPATITIS B WITHOUT DELTA-AGENT Status: Acute - Plan plan discussed w/ family, continue antibiotics, PT/OT, social science teacher, out of bed/ambulate, DVT proph w/SCDs Stable currently Continue Ativan IV PRN agitation/combativeness Trial Geodon IM Limit sedation for daytime Continue D5W with KCL @ 100ml/h Continue Rocephin 2gm IV daily CM for potential HH vs SNF AM lab: BMP, H/H
[2020-02-12 13:16] LABS: Vancomycin, Trough 22.3 ug/mL
[2020-02-12] MEDS: cefTRIAXone\\ROCEPHIN 2 GM in Sodium Chloride 0.9% 100 ML IVPB SCH (15:12)
[2020-02-12] MEDS: Potassium Chloride 40 MEQ in Dextrose 5% in Water 1,000 ML IV SCH (18:11)
[2020-02-13] MEDS: Lorazepam 2 MG/ML VIAL SLOW IVP PRN (02:20)
[2020-02-13 02:44] LABS: Platelet Count 167 thou/uL (130-400)
[2020-02-13 03:03] LABS: Vancomycin, Random 20.1 ug/mL (See Comment)
[2020-02-13 03:17] LABS: Anion Gap 10 mmol/L (10-20); Calcium 8.7 mg/dL (7.8-10.44); Carbon Dioxide 26 mmol/L (23-31); Chloride 108 mmol/L (98-107); Glucose 109 mg/dL (83-110); Potassium 3.3 mmol/L (3.5-5.1); Sodium 141 mmol/L (136-145)
[2020-02-13 03:22] LABS: Calc. Creatinine Clearance 28 mL/min (70-130); Estimated GFR-MDRD 64
[2020-02-13 03:23] LABS: BUN (Urea Nitrogen) 7 mg/dL (9.8-20.1)
[2020-02-13] MEDS: Potassium Chloride 40 MEQ in Dextrose 5% in Water 1,000 ML IV SCH ×4 (04:07→15:49)
[2020-02-13] MEDS: Vancomycin 1 GM in Premix Bag 1 BAG IVPB SCH (06:02)
[2020-02-13] MEDS: Anastrozole 1 MG TAB PO SCH (10:30)
[2020-02-13] MEDS: Potassium Chloride 20 MEQ TAB PO SCH (10:30)
[2020-02-13] MEDS: DULoxetine 60 MG CAP PO SCH (10:33)
[2020-02-13] MEDS: Folic Acid 1 MG TAB PO SCH ×2 (10:34→19:55)
[2020-02-13] MEDS: Enoxaparin Sodium 40 MG/0.4 ML SYRINGE SC SCH (10:34)
[2020-02-13] MEDS ORDERED: Ziprasidone 20 MG VIAL IM PRN (10:58)
[2020-02-13] MEDS ORDERED: Lorazepam 2 MG/ML VIAL SLOW IVP PRN (10:58)
--- NOTE | 2020-02-13 10:58 | PDOC.HOSPP ---
- Subjective Encounter Date: 02/13/20 Encounter Time: 10:30 Subjective: f/u for AMS, UTI with E. coli on Rocephin. Was placed back into restraints last pm and currently sleeping. - Objective Vital Signs & Weight: Vital Signs (12 hours) Temp Pulse Resp BP Pulse Ox 02/13/20 04:00 97.4 F L 95 14 136/83 95 Weight Admit Weight 144 lb 9.6 oz Weight 140 lb 8 oz I&O: 02/12/20 02/13/20 02/14/20 06:59 06:59 06:59 Intake Total 1800 2076 Output Total 1400 750 Balance 400 1326 Result Diagrams: 02/13/20 02:37 02/13/20 02:37 Additional Labs: Microbiology 02/09/20 00:57 Urine Straight Catheter Urine Culture - Preliminary Escherichia coli 02/09/20 00:57 Urine Straight Catheter Urine Culture - Preliminary Escherichia coli 02/09/20 00:09 Venous blood - Right Arm Blood Culture - Preliminary Gram Positive Cocci 02/09/20 00:09 Venous blood - Right Arm Blood Culture - Preliminary Alpha-Strep, not S. pneumoniae 02/08/20 00:08 Venous blood - Left Arm Blood Culture - Preliminary Specimen has been received and culture in progress. No Growth to date. Laboratory Tests 02/08/20 02/08/20 02/08/20 00:08 00:08 00:08 Hgb 12.2 Neutrophils % Sodium Potassium 3.0 L Lactic Acid 1.8 Phosphorus Magnesium Ammonia Troponin I Free T4 TSH 3rd Generation SARS-CoV-2 (PCR) 02/08/20 02/08/20 02/09/20 00:08 00:08 00:00 Hgb Neutrophils % Sodium Potassium Lactic Acid Phosphorus Magnesium Ammonia 27 Troponin I 0.020 Free T4 1.30 TSH 3rd Generation 1.3601 SARS-CoV-2 (PCR) 02/09/20 02/09/20 02/09/20 01:42 06:03 06:03 Hgb 10.7 L Neutrophils % 82.1 H Sodium Potassium 2.8 L* Lactic Acid Phosphorus Magnesium Ammonia Troponin I Free T4 TSH 3rd Generation SARS-CoV-2 (PCR) Not Detected 02/09/20 02/09/20 02/09/20 08:05 08:05 08:05 Hgb Neutrophils % Sodium Potassium Lactic Acid Phosphorus 2.0 L Magnesium 2.1 Ammonia Troponin I 0.017 Free T4 TSH 3rd Generation SARS-CoV-2 (PCR) 02/09/20 02/09/20 02/09/20 10:32 13:33 13:33 Hgb Neutrophils % Sodium 142 Potassium 3.4 L Lactic Acid Phosphorus Magnesium Ammonia Troponin I 0.021 0.024 Free T4 TSH 3rd Generation SARS-CoV-2 (PCR) 02/11/20 03:53 Hgb Neutrophils % 79.9 H Sodium Potassium Lactic Acid Phosphorus Magnesium Ammonia Troponin I Free T4 TSH 3rd Generation SARS-CoV-2 (PCR) EKG Reviewed by me: Yes (Tele - SR) Hospitalist ROS - Medication Medications: Active Medications Generic Name Dose Route Start Last Admin Trade Name Freq PRN Reason Stop Dose Admin Alprazolam 0.5 mg 02/09/20 09:07 02/10/20 03:44 Alprazolam 0.5 Mg Tab PO 0.5 mg HS PRN Administration Anxiety Anastrozole 1 mg 02/10/20 09:00 02/13/20 10:30 Anastrozole 1 Mg Tab PO Not Given DAILY SARAH Duloxetine HCl 120 mg 02/10/20 09:00 02/13/20 10:33 Duloxetine 60 Mg Cap PO Not Given DAILY SARAH Enoxaparin Sodium 40 mg 02/12/20 09:00 02/13/20 10:34 Enoxaparin Sodium 40 Mg/0.4 Ml Syringe SC 40 mg 0900 SARAH Administration Fentanyl 50 mcg 02/11/20 14:30 02/11/20 15:50 Fentanyl 50 Mcg/Hour Patch TD 50 mcg Q3D SARAH Administration Folic Acid 1 mg 02/09/20 21:00 02/13/20 10:34 Folic Acid 1 Mg Tab PO Not Given BID SARAH Ceftriaxone Sodium 2 gm/ 100 mls @ 200 mls/hr 02/10/20 14:44 02/12/20 15:12 Sodium Chloride IVPB 100 mls Q24HR SARAH Administration Potassium Chloride 40 meq/ 1,020 mls @ 100 mls/hr 02/11/20 12:15 02/13/20 04:07 Dextrose/Water IV 1,020 mls .[id number] SARAH Administration Vancomycin HCl 1 gm/ Device 200 mls @ 200 mls/hr 02/13/20 06:00 02/13/20 06:02 IVPB 200 mls 0600 SARAH Administration Lorazepam 2 mg 02/11/20 14:25 02/13/20 02:20 Lorazepam 2 Mg/Ml Vial SLOW IVP 2 mg Q4H PRN Administration AGITATION Metoprolol Succinate 100 mg 02/10/20 09:00 02/13/20 10:34 Metoprolol Succinate Xl 100 Mg Tab PO Not Given DAILY SARAH Pantoprazole Sodium 40 mg 02/09/20 09:00 02/13/20 10:34 Pantoprazole 40 Mg Tab PO Not Given DAILY SARAH Potassium Chloride 40 meq 02/09/20 08:00 02/13/20 10:30 Potassium Chloride 20 Meq Tab PO Not Given 0800 SARAH Sodium Chloride 10 ml 02/11/20 21:00 02/13/20 10:35 Flush - Normal Saline 10 Ml Syringe IVF Not Given Q12HR SARAH Ziprasidone 20 mg 02/11/20 17:00 02/11/20 21:18 Ziprasidone 20 Mg Vial IM 20 mg Q2H PRN Administration Agitation - Exam General - other findings: sleeping, somnolent Eye: PERRL, anicteric sclera ENT: normocephalic atraumatic, dry oral mucosa Neck: supple, symmetric, no JVD, no thyromegaly Heart: RRR, no murmur, no gallops, no rubs, normal peripheral pulses Heart - other findings: S1, S2 Respiratory: CTAB, no wheezes, no rales, no ronchi, normal chest expansion, no tachypnea Gastrointestinal: soft, non-tender, non-distended, normal bowel sounds, no palpable masses Extremities: no cyanosis, no clubbing, no edema Skin: normal turgor Musculoskeletal: generalized weakness Psychiatric: oriented to person, somnolent, lethargic Hosp A/P (1) Metabolic encephalopathy Code(s): G93.41 - METABOLIC ENCEPHALOPATHY Status: Acute Plan: Persistent, wean off sedation medications, re-orientation techniques (2) UTI (urinary tract infection) Status: Acute Plan: Continue Rocephin/Vancomycin, IVF's (3) Hypokalemia Code(s): E87.6 - HYPOKALEMIA Status: Acute Plan: KCL supplementation (4) Hypernatremia Code(s): E87.0 - HYPEROSMOLALITY AND HYPERNATREMIA Status: Acute Plan: Resolving, continue D5W IVF's (5) Chronic hepatitis B Code(s): B18.1 - CHRONIC VIRAL HEPATITIS B WITHOUT DELTA-AGENT Status: Acute - Plan continue antibiotics, PT/OT, social staff worker, DVT proph w/SCDs Stable currently Decrease Ativan IV PRN agitation/combativeness Decrease Geodon IM dosing Limit sedation for daytime Continue D5W with KCL @ 100ml/h Continue Rocephin 2gm IV daily Continue Vancomycin CM for potential HH vs SNF AM lab: BMP, H/H
[2020-02-13] MEDS: cefTRIAXone\\ROCEPHIN 2 GM in Sodium Chloride 0.9% 100 ML IVPB SCH (15:48)
[2020-02-14 04:34] LABS: Anion Gap 13 mmol/L (10-20); BUN (Urea Nitrogen) 4 mg/dL (9.8-20.1); Calc. Creatinine Clearance 67 mL/min (70-130); Carbon Dioxide 22 mmol/L (23-31); Chloride 107 mmol/L (98-107); Estimated GFR-MDRD 75; Glucose 103 mg/dL (83-110); Potassium 3.9 mmol/L (3.5-5.1); Sodium 138 mmol/L (136-145)
[2020-02-14] MEDS: Vancomycin 1 GM in Premix Bag 1 BAG IVPB SCH (05:00)
[2020-02-14] MEDS: Potassium Chloride 40 MEQ in Dextrose 5% in Water 1,000 ML IV SCH (05:01)
[2020-02-14 09:09] LABS: Hemoglobin 11.8 g/dL (12.0-16.0); Platelet Count 178 thou/uL (130-400)
[2020-02-14] MEDS: Enoxaparin Sodium 40 MG/0.4 ML SYRINGE SC SCH (09:26)
[2020-02-14] MEDS: Potassium Chloride 20 MEQ TAB PO SCH (09:28)
[2020-02-14] MEDS: Anastrozole 1 MG TAB PO SCH (09:29)
[2020-02-14] MEDS: DULoxetine 60 MG CAP PO SCH (09:29)
[2020-02-14] MEDS: Folic Acid 1 MG TAB PO SCH ×2 (09:29→21:27)
[2020-02-14] MEDS ORDERED: Ziprasidone 20 MG VIAL IM PRN (10:54)
[2020-02-14] MEDS ORDERED: Lorazepam 2 MG/ML VIAL SLOW IVP PRN (10:56)
--- NOTE | 2020-02-14 10:59 | PDOC.HOSPP ---
- Subjective Encounter Date: 02/14/20 Encounter Time: 10:40 Subjective: f/u for AMS that is persistent. Geodon/Ativan dose reduced in last 24h but pt more agitated and placed back in restraints. Son at bedside stating she is normally lucid and functional. No significant po intake in 4-5 days. - Objective Vital Signs & Weight: Vital Signs (12 hours) Temp Pulse Resp BP BP Pulse Ox 02/14/20 09:23 98.4 F 123 H 16 166/108 H 98 02/14/20 04:00 98.3 F 81 14 177/98 H 97 Weight Admit Weight 144 lb 9.6 oz Weight 145 lb I&O: 02/13/20 02/14/20 02/15/20 06:59 06:59 06:59 Intake Total 2076 2000 Output Total 750 1825 Balance 1326 175 Result Diagrams: 02/14/20 08:57 02/14/20 08:57 Additional Labs: Microbiology 02/09/20 00:57 Urine Straight Catheter Urine Culture - Preliminary Escherichia coli 02/09/20 00:57 Urine Straight Catheter Urine Culture - Preliminary Escherichia coli 02/09/20 00:09 Venous blood - Right Arm Blood Culture - Preliminary Gram Positive Cocci 02/09/20 00:09 Venous blood - Right Arm Blood Culture - Preliminary Alpha-Strep, not S. pneumoniae 02/08/20 00:08 Venous blood - Left Arm Blood Culture - Preliminary Specimen has been received and culture in progress. No Growth to date. Laboratory Tests 02/08/20 02/08/20 02/08/20 00:08 00:08 00:08 Hgb 12.2 Neutrophils % Sodium Potassium 3.0 L Lactic Acid 1.8 Phosphorus Magnesium Ammonia Troponin I Free T4 TSH 3rd Generation SARS-CoV-2 (PCR) 02/08/20 02/08/20 02/09/20 00:08 00:08 00:00 Hgb Neutrophils % Sodium Potassium Lactic Acid Phosphorus Magnesium Ammonia 27 Troponin I 0.020 Free T4 1.30 TSH 3rd Generation 1.3601 SARS-CoV-2 (PCR) 02/09/20 02/09/20 02/09/20 01:42 06:03 06:03 Hgb 10.7 L Neutrophils % 82.1 H Sodium Potassium 2.8 L* Lactic Acid Phosphorus Magnesium Ammonia Troponin I Free T4 TSH 3rd Generation SARS-CoV-2 (PCR) Not Detected 02/09/20 02/09/20 02/09/20 08:05 08:05 08:05 Hgb Neutrophils % Sodium Potassium Lactic Acid Phosphorus 2.0 L Magnesium 2.1 Ammonia Troponin I 0.017 Free T4 TSH 3rd Generation SARS-CoV-2 (PCR) 02/09/20 02/09/20 02/09/20 10:32 13:33 13:33 Hgb Neutrophils % Sodium 142 Potassium 3.4 L Lactic Acid Phosphorus Magnesium Ammonia Troponin I 0.021 0.024 Free T4 TSH 3rd Generation SARS-CoV-2 (PCR) 02/11/20 03:53 Hgb Neutrophils % 79.9 H Sodium Potassium Lactic Acid Phosphorus Magnesium Ammonia Troponin I Free T4 TSH 3rd Generation SARS-CoV-2 (PCR) EKG Reviewed by me: Yes (Tele - sinus tachy) Hospitalist ROS - Medication Medications: Active Medications Generic Name Dose Route Start Last Admin Trade Name Freq PRN Reason Stop Dose Admin Alprazolam 0.5 mg 02/09/20 09:07 02/10/20 03:44 Alprazolam 0.5 Mg Tab PO 0.5 mg HS PRN Administration Anxiety Anastrozole 1 mg 02/10/20 09:00 02/14/20 09:29 Anastrozole 1 Mg Tab PO Not Given DAILY SARAH Duloxetine HCl 120 mg 02/10/20 09:00 02/14/20 09:29 Duloxetine 60 Mg Cap PO Not Given DAILY SARAH Fentanyl 50 mcg 02/11/20 14:30 02/11/20 15:50 Fentanyl 50 Mcg/Hour Patch TD 50 mcg Q3D SARAH Administration Folic Acid 1 mg 02/09/20 21:00 02/14/20 09:29 Folic Acid 1 Mg Tab PO Not Given BID SARAH Ceftriaxone Sodium 2 gm/ 100 mls @ 200 mls/hr 02/10/20 14:44 02/13/20 15:48 Sodium Chloride IVPB 100 mls Q24HR SARAH Administration Vancomycin HCl 1 gm/ Device 200 mls @ 200 mls/hr 02/13/20 06:00 02/14/20 05:00 IVPB 200 mls 0600 SARAH Administration Potassium Chloride 40 meq/ 1,020 mls @ 75 mls/hr 02/13/20 11:03 02/14/20 05:01 Dextrose/Water IV 1,020 mls .[id number] SARAH Administration Metoprolol Succinate 100 mg 02/10/20 09:00 02/14/20 09:29 Metoprolol Succinate Xl 100 Mg Tab PO Not Given DAILY [facility] Pantoprazole Sodium 40 mg 02/09/20 09:00 02/14/20 09:29 Pantoprazole 40 Mg Tab PO Not Given DAILY SARAH Potassium Chloride 40 meq 02/09/20 08:00 02/14/20 09:28 Potassium Chloride 20 Meq Tab PO Not Given 0800 [facility] Sodium Chloride 10 ml 02/11/20 21:00 02/14/20 09:29 Flush - Normal Saline 10 Ml Syringe IVF Not Given Q12HR SARAH - Exam General - other findings: agitated, yelling out Eye: PERRL, anicteric sclera ENT: normocephalic atraumatic, no oropharyngeal lesions, dry oral mucosa Neck: supple, symmetric, no JVD, no thyromegaly, no carotid bruit Heart: no gallops, no rubs, normal peripheral pulses Heart - other findings: S1, S2 tachycardic Respiratory: CTAB, no wheezes, no rales, no ronchi, normal chest expansion Gastrointestinal: soft, non-tender, non-distended, normal bowel sounds, no palpable masses Extremities: no cyanosis, no clubbing, no edema Skin: normal turgor Neurological: cranial nerve grossly intact, no new deficit Neurological - other findings: R eye twitching Musculoskeletal: normal tone, generalized weakness Psychiatric: oriented to person Psychiatric - other findings: agitated, yelling out Hosp A/P (1) Metabolic encephalopathy Code(s): G93.41 - METABOLIC ENCEPHALOPATHY Status: Acute Plan: Persistent, ? Gabapentin withdrawal, restart Gabapentin, Ativan/Geodon IV PRN (2) UTI (urinary tract infection) Status: Acute Plan: E. coli spp pansensitive, continue Rocephin (3) Hypokalemia Code(s): E87.6 - HYPOKALEMIA Status: Acute Plan: Resolved, continue K+ monitoring (4) Hypernatremia Code(s): E87.0 - HYPEROSMOLALITY AND HYPERNATREMIA Status: Acute Plan: Resolved, continue D5W IVF (5) Chronic hepatitis B Code(s): B18.1 - CHRONIC VIRAL HEPATITIS B WITHOUT DELTA-AGENT Status: Acute - Plan plan discussed w/ family, continue antibiotics, PT/OT, high school social studies tutor, out of bed/ambulate, DVT proph w/SCDs AMS persists, discussed with son at bedside Ativan IV PRN agitation/combativeness Geodon IM dosing Limit sedation for daytime Continue D5W with KCL @ 75ml/h Continue Rocephin 2gm IV daily D/C Vancomycin CM for potential HH vs SNF Restart Gabapentin Repeat CT brain today AM lab: BMP, H/H
--- NOTE | 2020-02-14 11:45 | CT ---
CT HEAD WITHOUT IV CONTRAST COMPARISON: 02/09/2020 HISTORY: Altered mental status. TECHNIQUE: Axial CT imaging at 5 mm intervals from vertex through skull base without contrast FINDINGS: Stable coarse calcifications are again seen in the left basal ganglia. There is no evidence of an acu te infarction, hemorrhage, mass effect, or midline shift. There is mild cerebral volume loss. The ventricular system is normal in size, shape, and position for the degree of sulcal atrophy. Skull base has a normal CT appearance. Visualized paranasal sinuses are clear. Osseous structures appear intact. CT head is stable compared to prior exam. IMPRESSION: 1. No acute intracranial abnormality demonstrated.
[2020-02-14] MEDS: cefTRIAXone\\ROCEPHIN 2 GM in Sodium Chloride 0.9% 100 ML IVPB SCH (15:03)
[2020-02-14] MEDS: fentaNYL 50 mcg/hour Patch TD SCH (15:21)
[2020-02-14] MEDS: Gabapentin 300 MG CAP PO SCH ×2 (15:22→21:27)
[2020-02-14] MEDS: Apixaban 5 MG TAB PO SCH (21:27)
[2020-02-14] MEDS ORDERED: Dextrose 50% Abboject 50 ML SYRINGE ONE (23:35)
[2020-02-14] MEDS ORDERED: Sodium Bicarb 50 MEQ/50 ML Abboject 8.4% SYRINGE IVP SCH (23:45)
[2020-02-14] MEDS ORDERED: Dextrose 50% Abboject 50 ML SYRINGE SLOW IVP SCH (23:45)
[2020-02-15 00:06] LABS: #Eosinphils 0.1 thou/uL (0.0-0.7); #Monocytes 0.9 thou/uL (0.11-0.59); #Neutrophils 5.9 thou/uL (1.40-6.50); %Basophils 0.4 % (0.0-1.0); %Eosinophils 1.8 % (0.0-10.0); %Lymphocytes 12.4 % (21.0-51.0); %Monocytes 11.8 % (0.0-10.0); %Neutrophils 73.6 % (42.0-75.0); Hemoglobin 10.5 g/dL (12.0-16.0); Mean Corpuscular HGB CONC 32.9 g/dL (32.0-36.0); Mean Corpuscular Hemoglobin 28.9 pg (27.0-31.0); Mean Corpuscular Volume 87.8 fL (78.0-98.0); Mean Platelet Volume 7.9 fL (7.4-10.4); Platelet Count 164 thou/uL (130-400); RBC Distribution Width 12.8 % (11.5-14.5); Red Blood Cell (RBC) Count 3.61 mill/uL (4.20-5.40)
[2020-02-15 00:24] LABS: Lactic Acid 0.9 mmol/L (0.5-2.2)
[2020-02-15 00:28] LABS: ALT (SGPT) 21 U/L (8-55); AST (SGOT) 14 U/L (5-34); Albumin 2.8 g/dL (3.4-4.8); Alkaline Phosphatase 51 U/L (40-110); Anion Gap 11 mmol/L (10-20); BUN (Urea Nitrogen) 5 mg/dL (9.8-20.1); Bilirubin, Total 0.4 mg/dL (0.2-1.2); Calc. Creatinine Clearance 59 mL/min (70-130); Calcium 8.3 mg/dL (7.8-10.44); Carbon Dioxide 25 mmol/L (23-31); Chloride 105 mmol/L (98-107); Estimated GFR-MDRD 62; Globulin 2.3 g/dL (2.4-3.5); Glucose 185 mg/dL (83-110); Magnesium 1.7 mg/dL (1.6-2.6); Potassium 3.6 mmol/L (3.5-5.1); Protein, Total 5.1 g/dL (6.0-8.3); Sodium 137 mmol/L (136-145)
[2020-02-15] MEDS: Potassium Chloride 40 MEQ in Dextrose 5% in Water 1,000 ML IV SCH ×2 (02:14→17:19)
[2020-02-15] MEDS: Gabapentin 300 MG CAP PO SCH ×4 (09:08→20:38)
[2020-02-15] MEDS: Potassium Chloride 20 MEQ TAB PO SCH (09:16)
[2020-02-15] MEDS: Anastrozole 1 MG TAB PO SCH (09:16)
[2020-02-15] MEDS: Amlodipine 10 MG TAB PO SCH (09:16)
[2020-02-15] MEDS: Bupropion 150 MG XL TAB PO SCH (09:17)
[2020-02-15] MEDS: Apixaban 5 MG TAB PO SCH ×2 (09:17→20:38)
[2020-02-15] MEDS: Folic Acid 1 MG TAB PO SCH ×2 (09:17→20:38)
[2020-02-15] MEDS: DULoxetine 60 MG CAP PO SCH (09:17)
--- NOTE | 2020-02-15 10:58 | PDOC.HOSPP ---
- Subjective Encounter Date: 02/15/20 Encounter Time: 10:35 Subjective: f/u for encephalopathy likely multifactorial including UTI/polypharmacy. More alert and interactive this am per nursing/son. - Objective Vital Signs & Weight: Vital Signs (12 hours) Temp Pulse Resp BP Pulse Ox 02/15/20 07:20 97.6 F 105 H 17 126/74 98 02/15/20 03:50 98.7 F 108 H 16 146/86 H 97 02/14/20 23:10 98.7 F 111 H 16 133/83 96 Weight Admit Weight 144 lb 9.6 oz Weight 140 lb 6.4 oz I&O: 02/14/20 02/15/20 02/16/20 06:59 06:59 06:59 Intake Total 1999 999 Output Total 1829 1475 Balance 175 -475 Result Diagrams: 02/14/20 23:52 02/14/20 23:52 Additional Labs: Accuchecks 02/15/20 02/14/20 05:15 23:10 POC Glucose 90 93 Microbiology 02/09/20 00:57 Urine Straight Catheter Urine Culture - Preliminary Escherichia coli 02/09/20 00:57 Urine Straight Catheter Urine Culture - Preliminary Escherichia coli 02/09/20 00:09 Venous blood - Right Arm Blood Culture - Preliminary Gram Positive Cocci 02/09/20 00:09 Venous blood - Right Arm Blood Culture - Preliminary Alpha-Strep, not S. pneumoniae 02/08/20 00:08 Venous blood - Left Arm Blood Culture - Preliminary Specimen has been received and culture in progress. No Growth to date. Laboratory Tests 02/08/20 02/08/20 02/08/20 00:08 00:08 00:08 Hgb 12.2 Neutrophils % Sodium Potassium 3.0 L Lactic Acid 1.8 Phosphorus Magnesium Ammonia Troponin I Free T4 TSH 3rd Generation SARS-CoV-2 (PCR) 02/08/20 02/08/20 02/09/20 00:08 00:08 00:00 Hgb Neutrophils % Sodium Potassium Lactic Acid Phosphorus Magnesium Ammonia 27 Troponin I 0.020 Free T4 1.30 TSH 3rd Generation 1.3601 SARS-CoV-2 (PCR) 02/09/20 02/09/20 02/09/20 01:42 06:03 06:03 Hgb 10.7 L Neutrophils % 82.1 H Sodium Potassium 2.8 L* Lactic Acid Phosphorus Magnesium Ammonia Troponin I Free T4 TSH 3rd Generation SARS-CoV-2 (PCR) Not Detected 02/09/20 02/09/20 02/09/20 08:05 08:05 08:05 Hgb Neutrophils % Sodium Potassium Lactic Acid Phosphorus 2.0 L Magnesium 2.1 Ammonia Troponin I 0.017 Free T4 TSH 3rd Generation SARS-CoV-2 (PCR) 02/09/20 02/09/20 02/09/20 10:32 13:33 13:33 Hgb Neutrophils % Sodium 142 Potassium 3.4 L Lactic Acid Phosphorus Magnesium Ammonia Troponin I 0.021 0.024 Free T4 TSH 3rd Generation SARS-CoV-2 (PCR) 02/11/20 03:53 Hgb Neutrophils % 79.9 H Sodium Potassium Lactic Acid Phosphorus Magnesium Ammonia Troponin I Free T4 TSH 3rd Generation SARS-CoV-2 (PCR) Radiology Reviewed by me: Yes (CT brain - no acute process) EKG Reviewed by me: Yes (Tele - SR) Hospitalist ROS - Medication Medications: Active Medications Generic Name Dose Route Start Last Admin Trade Name Freq PRN Reason Stop Dose Admin Alprazolam 0.5 mg 02/09/20 09:07 02/10/20 03:44 Alprazolam 0.5 Mg Tab PO 0.5 mg HS PRN Administration Anxiety Amlodipine Besylate 10 mg 02/15/20 09:00 02/15/20 09:16 Amlodipine 10 Mg Tab PO Not Given DAILY SARAH Anastrozole 1 mg 02/10/20 09:00 02/15/20 09:16 Anastrozole 1 Mg Tab PO Not Given DAILY SARAH Apixaban 5 mg 02/14/20 21:00 02/15/20 09:17 Apixaban 5 Mg Tab PO Not Given BID SARAH Bupropion HCl 300 mg 02/15/20 09:00 02/15/20 09:17 Bupropion 150 Mg Xl Tab PO Not Given DAILY SARAH Duloxetine HCl 120 mg 02/10/20 09:00 02/15/20 09:17 Duloxetine 60 Mg Cap PO Not Given DAILY SARAH Fentanyl 50 mcg 02/11/20 14:30 02/14/20 15:21 Fentanyl 50 Mcg/Hour Patch TD 50 mcg Q3D SARAH Administration Folic Acid 1 mg 02/09/20 21:00 02/15/20 09:17 Folic Acid 1 Mg Tab PO Not Given BID SARAH Gabapentin 600 mg 02/14/20 15:00 02/15/20 09:08 Gabapentin 300 Mg Cap PO Not Given TID SARAH Ceftriaxone Sodium 2 gm/ 100 mls @ 200 mls/hr 02/10/20 14:44 02/14/20 15:03 Sodium Chloride IVPB 100 mls Q24HR SARAH Administration Potassium Chloride 40 meq/ 1,020 mls @ 75 mls/hr 02/13/20 11:03 02/15/20 02:14 Dextrose/Water IV 1,020 mls .[id number] SARAH Administration Lorazepam 2 mg 02/14/20 10:56 02/14/20 15:03 Lorazepam 2 Mg/Ml Vial SLOW IVP 2 mg Q6H PRN Administration AGITATION Metoprolol Succinate 25 mg 02/15/20 09:45 02/15/20 10:02 Metoprolol Succinate Xl 25 Mg Tab PO 02/15/20 12:00 Not Given NOW SARAH Pantoprazole Sodium 40 mg 02/09/20 09:00 02/15/20 09:17 Pantoprazole 40 Mg Tab PO Not Given DAILY SARAH Potassium Chloride 40 meq 02/09/20 08:00 02/15/20 09:16 Potassium Chloride 20 Meq Tab PO Not Given 0800 SARAH Sodium Chloride 10 ml 02/11/20 21:00 02/15/20 09:18 Flush - Normal Saline 10 Ml Syringe IVF 10 ml Q12HR SARAH Administration - Exam General Appearance: awake alert General - other findings: responds to questions Eye: PERRL, anicteric sclera ENT: normocephalic atraumatic, no oropharyngeal lesions Neck: supple, symmetric, no JVD, no thyromegaly, no lymphadenopathy Heart: RRR, no murmur, no gallops, no rubs, normal peripheral pulses Heart - other findings: S1, S2 Respiratory: CTAB, no wheezes, no rales, no ronchi, normal chest expansion Gastrointestinal: soft, non-tender, non-distended, normal bowel sounds, no palpable masses Extremities: no cyanosis, no clubbing Skin: normal turgor, no lesions Neurological: cranial nerve grossly intact Musculoskeletal: normal tone, generalized weakness Psychiatric: oriented to person, oriented to place Hosp A/P (1) Metabolic encephalopathy Code(s): G93.41 - METABOLIC ENCEPHALOPATHY Status: Acute Plan: Improving, continue to re-orient, limit sedation (2) UTI (urinary tract infection) Status: Acute Plan: Continue Rocephin another 24h (3) Hypokalemia Code(s): E87.6 - HYPOKALEMIA Status: Acute Plan: Improved, KCL replacement (4) Hypernatremia Code(s): E87.0 - HYPEROSMOLALITY AND HYPERNATREMIA Status: Acute (5) Chronic hepatitis B Code(s): B18.1 - CHRONIC VIRAL HEPATITIS B WITHOUT DELTA-AGENT Status: Acute - Plan plan discussed w/ family, continue antibiotics, PT/OT, pediatric social worker, out of bed/ambulate, DVT proph w/SCDs AMS persists, discussed with son at bedside Ativan IV PRN agitation/combativeness Geodon IM dosing, limit Limit sedation for daytime Continue D5W with KCL @ 75ml/h Continue Rocephin 2gm IV daily D/C Vancomycin CM for potential HH vs SNF Restart Gabapentin 600mg TID Clear liquids today AM lab: BMP, H/H
[2020-02-15] MEDS: cefTRIAXone\\ROCEPHIN 2 GM in Sodium Chloride 0.9% 100 ML IVPB SCH (14:42)
[2020-02-15] MEDS: Acetaminophen 325 MG TAB PO PRN (20:32)
[2020-02-16] MEDS: Anastrozole 1 MG TAB PO SCH ×2 (09:10→10:01)
[2020-02-16] MEDS: Potassium Chloride 20 MEQ TAB PO SCH ×2 (09:10→10:01)
[2020-02-16] MEDS: Folic Acid 1 MG TAB PO SCH ×3 (09:10→20:02)
--- NOTE | 2020-02-16 09:55 | PDOC.HOSPP ---
- Subjective Encounter Date: 02/16/20 Encounter Time: 09:30 Subjective: f/u for AMS likely multifactorial with improvement in last 48h. Able to tolerate po intake and fluids. Still confused on days but more interactive and talkative. - Objective Vital Signs & Weight: Vital Signs (12 hours) Temp Pulse Resp BP Pulse Ox 02/16/20 07:10 98.3 F 85 16 137/77 99 02/16/20 04:00 98.6 F 93 16 140/85 98 02/16/20 00:00 98.1 F 88 Weight Admit Weight 144 lb 9.6 oz Weight 142 lb 3.2 oz I&O: 02/15/20 02/16/20 02/17/20 06:59 06:59 06:59 Intake Total 1000 820 Output Total 1475 925 Balance -475 -105 Result Diagrams: 02/14/20 23:52 02/14/20 23:52 Additional Labs: Microbiology 02/09/20 00:57 Urine Straight Catheter Urine Culture - Preliminary Escherichia coli 02/09/20 00:57 Urine Straight Catheter Urine Culture - Preliminary Escherichia coli 02/09/20 00:09 Venous blood - Right Arm Blood Culture - Preliminary Gram Positive Cocci 02/09/20 00:09 Venous blood - Right Arm Blood Culture - Preliminary Alpha-Strep, not S. pneumoniae 02/08/20 00:08 Venous blood - Left Arm Blood Culture - Preliminary Specimen has been received and culture in progres s. No Growth to date. Laboratory Tests 02/08/20 02/08/20 02/08/20 00:08 00:08 00:08 Hgb 12.2 Neutrophils % Sodium Potassium 3.0 L Lactic Acid 1.8 Phosphorus Magnesium Ammonia Troponin I Free T4 TSH 3rd Generation SARS-CoV-2 (PCR) 02/08/20 02/08/20 02/09/20 00:08 00:08 00:00 Hgb Neutrophils % Sodium Potassium Lactic Acid Phosphorus Magnesium Ammonia 27 Troponin I 0.020 Free T4 1.30 TSH 3rd Generation 1.3601 SARS-CoV-2 (PCR) 02/09/20 02/09/20 02/09/20 01:42 06:03 06:03 Hgb 10.7 L Neutrophils % 82.1 H Sodium Potassium 2.8 L* Lactic Acid Phosphorus Magnesium Ammonia Troponin I Free T4 TSH 3rd Generation SARS-CoV-2 (PCR) Not Detected 02/09/20 02/09/20 02/09/20 08:05 08:05 08:05 Hgb Neutrophils % Sodium Potassium Lactic Acid Phosphorus 2.0 L Magnesium 2.1 Ammonia Troponin I 0.017 Free T4 TSH 3rd Generation SARS-CoV-2 (PCR) 02/09/20 02/09/20 02/09/20 10:32 13:33 13:33 Hgb Neutrophils % Sodium 142 Potassium 3.4 L Lactic Acid Phosphorus Magnesium Ammonia Troponin I 0.021 0.024 Free T4 TSH 3rd Generation SARS-CoV-2 (PCR) 02/11/20 03:53 Hgb Neutrophils % 79.9 H Sodium Potassium Lactic Acid Phosphorus Magnesium Ammonia Troponin I Free T4 TSH 3rd Generation SARS-CoV-2 (PCR) EKG Reviewed by me: Yes (Tele - SR) Hospitalist ROS - Medication Medications: Active Medications Generic Name Dose Route Start Last Admin Trade Name Freq PRN Reason Stop Dose Admin Acetaminophen 650 mg 02/09/20 02:31 02/15/20 20:32 Acetaminophen 325 Mg Tab PO 650 mg Q4H PRN Administration Headache/Fever/Mild Pain (1-3) Alprazolam 0.5 mg 02/09/20 09:07 02/10/20 03:44 Alprazolam 0.5 Mg Tab PO 0.5 mg HS PRN Administration Anxiety Amlodipine Besylate 10 mg 02/15/20 09:00 02/15/20 09:16 Amlodipine 10 Mg Tab PO Not Given DAILY SARAH Anastrozole 1 mg 02/10/20 09:00 02/15/20 09:16 Anastrozole 1 Mg Tab PO Not Given DAILY SARAH Apixaban 5 mg 02/14/20 21:00 02/15/20 20:38 Apixaban 5 Mg Tab PO Not Given BID SARAH Bupropion HCl 300 mg 02/15/20 09:00 02/15/20 09:17 Bupropion 150 Mg Xl Tab PO Not Given DAILY SARAH Duloxetine HCl 120 mg 02/10/20 09:00 02/15/20 09:17 Duloxetine 60 Mg Cap PO Not Given DAILY [facility] Fentanyl 50 mcg 02/11/20 14:30 02/14/20 15:21 Fentanyl 50 Mcg/Hour Patch TD 50 mcg Q3D SARAH Administration Folic Acid 1 mg 02/09/20 21:00 02/15/20 20:38 Folic Acid 1 Mg Tab PO Not Given BID SARAH Gabapentin 600 mg 02/14/20 15:00 02/15/20 20:38 Gabapentin 300 Mg Cap PO Not Given TID [facility] Ceftriaxone Sodium 2 gm/ 100 mls @ 200 mls/hr 02/10/20 14:44 02/15/20 14:42 Sodium Chloride IVPB 100 mls Q24HR SARAH Administration Potassium Chloride 40 meq/ 1,020 mls @ 75 mls/hr 02/15/20 17:00 02/15/20 17:19 Dextrose/Water IV 1,020 mls INF SARAH Administration Lorazepam 2 mg 02/14/20 10:56 02/14/20 15:03 Lorazepam 2 Mg/Ml Vial SLOW IVP 2 mg Q6H PRN Administration AGITATION Pantoprazole Sodium 40 mg 02/09/20 09:00 02/15/20 09:17 Pantoprazole 40 Mg Tab PO Not Given DAILY SARAH Potassium Chloride 40 meq 02/09/20 08:00 02/15/20 09:16 Potassium Chloride 20 Meq Tab PO Not Given 0800 [facility] Sodium Chloride 10 ml 02/11/20 21:00 02/15/20 20:39 Flush - Normal Saline 10 Ml Syringe IVF 10 ml Q12HR SARAH Administration - Exam General Appearance: NAD, awake alert Eye: PERRL, anicteric sclera ENT: normocephalic atraumatic, no oropharyngeal lesions Neck: supple, symmetric, no JVD, no thyromegaly, no lymphadenopathy Heart: RRR, no murmur, no gallops, no rubs, normal peripheral pulses Respiratory: CTAB, no wheezes, no rales, no ronchi, normal chest expansion Gastrointestinal: soft, non-tender, non-distended, normal bowel sounds, no palpable masses Extremities: no cyanosis, no clubbing Skin: normal turgor, no lesions Neurological: cranial nerve grossly intact, no new deficit Musculoskeletal: normal tone, generalized weakness Psychiatric: oriented to person, oriented to place Hosp A/P (1) Metabolic encephalopathy Code(s): G93.41 - METABOLIC ENCEPHALOPATHY Status: Acute Plan: Multifactorial process with improvement, continue re-orientation, OOB, family support (2) UTI (urinary tract infection) Status: Acute Plan: Continue Rocephin another 24h then convert to po abx (3) Hypokalemia Code(s): E87.6 - HYPOKALEMIA Status: Acute Plan: Improved, KCL supplementation (4) Hypernatremia Code(s): E87.0 - HYPEROSMOLALITY AND HYPERNATREMIA Status: Acute Plan: Resolved, saline lock IVF (5) Chronic hepatitis B Code(s): B18.1 - CHRONIC VIRAL HEPATITIS B WITHOUT DELTA-AGENT Status: Acute - Plan continue antibiotics, PT/OT, manager social media, out of bed/ambulate, DVT proph w/SCDs AMS persists, discussed with son at bedside Ativan IV PRN agitation/combativeness Geodon IM dosing, limit Limit sedation for daytime Continue Rocephin 2gm IV daily another 24h CM for potential SNF Restart Gabapentin 600mg TID Clear liquids today, ADAT
[2020-02-16] MEDS: Bupropion 150 MG XL TAB PO SCH (09:57)
[2020-02-16] MEDS: Apixaban 5 MG TAB PO SCH ×2 (09:57→20:01)
[2020-02-16] MEDS: Amlodipine 10 MG TAB PO SCH (09:58)
[2020-02-16] MEDS: Gabapentin 300 MG CAP PO SCH ×3 (09:58→19:59)
[2020-02-16] MEDS: DULoxetine 60 MG CAP PO SCH (10:01)
--- NOTE | 2020-02-16 12:12 | PQF ---
CLINICAL DOCUMENTATION CLARIFICATION FORM: Dear Dr. Terrazas Date 02/16/2020 Please exercise your independent, professional judgment in responding to the clarification form. Clinical indicators are provided on the bottom of this form for your review. Please check appropriate box(es): [ ] Sepsis due to UTI. [ ] Sepsis due to other: [ ] Severe sepsis with associated acute organ dysfunction: [ ] Encephalopathy (metabolic) (septic) [ ] Additional/Other: please specify: [ x ] Localized infection without sepsis [ ] Other diagnosis [ ] Unable to determine In addition, please specify: Present on Admission (POA): [ x ] Yes [ ] No [ ] Unable to determine For continuity of documentation, please document condition throughout progress notes and discharge summary. Thank You. To be completed by CDI/Coding staff for physician review: CLINICAL INDICATORS - SIGNS / SYMPTOMS / LABS / RESULTS AND LOCATION IN MR *ER Record 02/07: VS: BP 139/91, resp. 28, Pulse 116 Doctor Notes: After insertion of Dupont rather than just a straight cath the pr had cloudy somewhat purulent appearing urine confirming the active source of infection and resultant early sepsis. DX: AMS Additional: cirrhosis, dehydration, emphysematous , cystitis, sepsis, vomiting and enteritis *H&P 02/08 ([facility]) HPI: Pt altered mental status likely 2/2 UTI. She does not meet criteria for sepsis. *Event note 02/09: Sepsis possibly from UTI. had AMS, tachycardia, Urine culture preliminarily showing young growth, UA showing 500 leukocytes esterase, > 50 WBC *02/09 pn (Mk) A/P: Metabolic encephalopathy. Likely multifactorial including UTI UTI. E coli spp isolated RISK FACTORS / RESULTS AND LOCATION IN MR H&P 02/08 ([facility]) HPI: 74 yo with hx of hepatitis B, and HTN. A/P: Metabolic encephalopathy. UTI. Chronic hep B. Hypokalemia TREATMENTS / RESULTS AND LOCATION IN MR ER Record 02/07: Med. Admin. Summary: vancomycin 1g IV and ceftriaxone 2g IV: lactated Ringers IV 2L 02/09 pn (Mk) UTI. Rocephin IV daily Thank you, Ana Maharaj RN, [email or web address] This is a permanent part of the Medical Record [facility]
--- NOTE | 2020-02-16 13:18 | EKG ---
Test Reason : CODE GREEN Blood Pressure : / mmHG Vent. Rate : 173 BPM Atrial Rate : 115 BPM P-R Int : 000 ms QRS Dur : 084 ms QT Int : 250 ms P-R-T Axes : 000 -16 208 degrees QTc Int : 424 ms Atrial fibrillation with rapid ventricular response Inferior-posterior infarct , possibly acute * ACUTE AK * Consider right ventricular involvement in acute inferior infarct Abnormal ECG When compared with ECG of 08-FEB-2020 23:55, (Unconfirmed) Significant changes have occurred Confirmed by DR. Safia TORREZ ([id number]) on 02/16/2020 1:18:14 PM Referred By: [facility] Confirmed By:DR. Safia TORREZ
[2020-02-16] MEDS: cefTRIAXone\\ROCEPHIN 2 GM in Sodium Chloride 0.9% 100 ML IVPB SCH (14:03)
[2020-02-16] MEDS: Acetaminophen 325 MG TAB PO PRN (18:15)
[2020-02-16] MEDS: Potassium Chloride 40 MEQ in Dextrose 5% in Water 1,000 ML IV SCH (18:15)
--- NOTE | 2020-02-17 08:09 | PDOC.HOSPP ---
- Subjective Encounter Date: 02/17/20 Encounter Time: 10:00 Subjective: Patient feeling much better. No longer confused. - Objective Vital Signs & Weight: Vital Signs (12 hours) Temp Pulse Resp BP Pulse Ox 02/17/20 07:20 98.2 F 98 16 112/62 96 02/17/20 03:35 98.1 F 85 16 106/55 L 96 02/17/20 00:22 80 Weight Admit Weight 144 lb 9.6 oz Weight 143 lb I&O: 02/16/20 02/17/20 02/18/20 06:59 06:59 06:59 Intake Total 820 1337 Output Total 925 1125 Balance -105 212 Result Diagrams: 02/17/20 09:35 02/17/20 09:35 Hospitalist ROS - Review of Systems Constitutional: denies: fever, chills Respiratory: denies: cough, shortness of breath Cardiovascular: denies: chest pain, palpitations Gastrointestinal: denies: nausea, vomiting, abdominal pain - Medication Medications: Active Medications Generic Name Dose Route Start Last Admin Trade Name Freq PRN Reason Stop Dose Admin Acetaminophen 650 mg 02/09/20 02:31 02/16/20 18:15 Acetaminophen 325 Mg Tab PO 650 mg Q4H PRN Administration Headache/Fever/Mild Pain (1-3) Alprazolam 0.5 mg 02/09/20 09:07 02/10/20 03:44 Alprazolam 0.5 Mg Tab PO 0.5 mg HS PRN Administration Anxiety Amlodipine Besylate 10 mg 02/15/20 09:00 02/16/20 09:58 Amlodipine 10 Mg Tab PO 10 mg DAILY SARAH Administration Anastrozole 1 mg 02/10/20 09:00 02/16/20 09:10 Anastrozole 1 Mg Tab PO Not Given DAILY SARAH Apixaban 5 mg 02/14/20 21:00 02/16/20 20:01 Apixaban 5 Mg Tab PO Not Given BID SARAH Bupropion HCl 300 mg 02/15/20 09:00 02/16/20 09:57 Bupropion 150 Mg Xl Tab PO 300 mg DAILY SARAH Administration Duloxetine HCl 120 mg 02/10/20 09:00 02/16/20 10:01 Duloxetine 60 Mg Cap PO 120 mg DAILY SARAH Administration Fentanyl 50 mcg 02/11/20 14:30 02/14/20 15:21 Fentanyl 50 Mcg/Hour Patch TD 50 mcg Q3D SARAH Administration Folic Acid 1 mg 02/09/20 21:00 02/16/20 20:02 Folic Acid 1 Mg Tab PO Not Given BID SARAH Gabapentin 600 mg 02/14/20 15:00 02/16/20 19:59 Gabapentin 300 Mg Cap PO 600 mg TID SARAH Administration Ceftriaxone Sodium 2 gm/ 100 mls @ 200 mls/hr 02/10/20 14:44 02/16/20 14:03 Sodium Chloride IVPB 100 mls Q24HR SARAH Administration Potassium Chloride 40 meq/ 1,020 mls @ 75 mls/hr 02/15/20 17:00 02/16/20 18:15 Dextrose/Water IV 1,020 mls INF SARAH Administration Lorazepam 2 mg 02/14/20 10:56 02/14/20 15:03 Lorazepam 2 Mg/Ml Vial SLOW IVP 2 mg Q6H PRN Administration AGITATION Metoprolol Succinate 25 mg 02/16/20 09:00 02/16/20 09:10 Metoprolol Succinate Xl 25 Mg Tab PO Not Given DAILY SARAH Pantoprazole Sodium 40 mg 02/09/20 09:00 02/16/20 09:10 Pantoprazole 40 Mg Tab PO Not Given DAILY [facility] Potassium Chloride 40 meq 02/09/20 08:00 02/16/20 09:10 Potassium Chloride 20 Meq Tab PO Not Given 0800 [facility] Sodium Chloride 10 ml 02/11/20 21:00 02/16/20 20:02 Flush - Normal Saline 10 Ml Syringe IVF Not Given Q12HR SARAH - Exam General Appearance: NAD, awake alert ENT: moist mucosa Heart: RRR, no murmur, no gallops, no rubs Respiratory: CTAB, no wheezes, no rales, no ronchi Gastrointestinal: soft, non-tender, non-distended, normal bowel sounds Psychiatric: normal affect, normal behavior, A&O x 3 Hosp A/P (1) Metabolic encephalopathy Code(s): G93.41 - METABOLIC ENCEPHALOPATHY Status: Acute (2) UTI (urinary tract infection) Status: Acute (3) Hypernatremia Code(s): E87.0 - HYPEROSMOLALITY AND HYPERNATREMIA Status: Resolved (4) Hypokalemia Code(s): E87.6 - HYPOKALEMIA Status: Resolved (5) Chronic hepatitis B Code(s): B18.1 - CHRONIC VIRAL HEPATITIS B WITHOUT DELTA-AGENT Status: Chronic - Plan continue antibiotics, PT/OT, regulatory services consultant, out of bed/ambulate, DVT proph w/SCDs AMS persists, discussed with son at bedside Ativan IV PRN agitation/combativeness Geodon IM dosing, limit Limit sedation for daytime Transition Rocephin to oral Amoxicillin CM working on SNF Restarted Gabapentin 600mg TID tolerating diet
[2020-02-17 09:46] LABS: Hemoglobin 10.8 g/dL (12.0-16.0); Platelet Count 243 thou/uL (130-400)
[2020-02-17] MEDS: Gabapentin 300 MG CAP PO SCH ×3 (09:49→20:55)
[2020-02-17] MEDS: Potassium Chloride 20 MEQ TAB PO SCH (09:49)
[2020-02-17] MEDS: DULoxetine 60 MG CAP PO SCH (09:50)
[2020-02-17] MEDS: Bupropion 150 MG XL TAB PO SCH (09:50)
[2020-02-17] MEDS: Folic Acid 1 MG TAB PO SCH ×2 (09:50→20:55)
[2020-02-17] MEDS: Amlodipine 10 MG TAB PO SCH (09:51)
[2020-02-17] MEDS: Apixaban 5 MG TAB PO SCH ×2 (09:51→20:55)
[2020-02-17] MEDS: Anastrozole 1 MG TAB PO SCH (09:51)
[2020-02-17] MEDS: Potassium Chloride 40 MEQ in Dextrose 5% in Water 1,000 ML IV SCH (09:56)
[2020-02-17 11:19] LABS: Anion Gap 13 mmol/L (10-20); BUN (Urea Nitrogen) 7 mg/dL (9.8-20.1); Calc. Creatinine Clearance 63 mL/min (70-130); Calcium 8.2 mg/dL (7.8-10.44); Carbon Dioxide 16 mmol/L (23-31); Chloride 109 mmol/L (98-107); Estimated GFR-MDRD 68; Glucose 119 mg/dL (83-110); Potassium 4.1 mmol/L (3.5-5.1); Sodium 134 mmol/L (136-145)
[2020-02-17] MEDS: AMOXicillin 250 MG CAP PO SCH ×2 (14:28→21:35)
[2020-02-17] MEDS: fentaNYL 50 mcg/hour Patch TD SCH (14:28)
--- NOTE | 2020-02-17 15:57 | PDOC.CPN ---
- Subjective Date: 02/17/20 Time: 15:55 Interval history: She is doing better. Less confused. She states she does not remember the last 2 days. - Review of Systems General: denies: fever/chills, weight/appetite/sleep changes, night sweats, fatigue Respiratory: denies: cough, congestion, shortness of breath, exercise intolerance Cardiovascular: denies: chest pain, palpitation, edema, paroxysmal nocturnal dyspnea, orthopnea Gastrointestinal: denies: nausea, vomiting, diarrhea, constipation, abd pain, GI bleeding Musculoskeletal: denies: pain, tenderness, stiffness, swelling, arthritis/arthralgias Neurological: denies: numbness, syncope, seizure, weakness - Objective Allergies/Adverse Reactions: Allergies Allergy/AdvReac Type Severity Reaction Status Date / Time NSAIDS (Non-Steroidal Allergy Verified 02/09/20 06:54 Anti-Inflamma Visit Medications: Current Medications Acetaminophen (Acetaminophen 325 Mg Tab) 650 mg PO Q4H PRN PRN Reason: Headache/Fever/Mild Pain (1-3) Last Admin: 02/16/20 18:15 Dose: 650 mg Documented by: Alprazolam (Alprazolam 0.5 Mg Tab) 0.5 mg PO HS PRN PRN Reason: Anxiety Last Admin: 02/10/20 03:44 Dose: 0.5 mg Documented by: Amlodipine Besylate (Amlodipine 10 Mg Tab) 10 mg PO DAILY [facility] Last Admin: 02/17/20 09:51 Dose: 10 mg Documented by: Amoxicillin (Amoxicillin 250 Mg Cap) 500 mg PO TID [facility] Last Admin: 02/17/20 14:28 Dose: 500 mg Documented by: Anastrozole (Anastrozole 1 Mg Tab) 1 mg PO DAILY [facility] Last Admin: 02/17/20 09:51 Dose: 1 mg Documented by: Apixaban (Apixaban 5 Mg Tab) 5 mg PO BID [facility] Last Admin: 02/17/20 09:51 Dose: 5 mg Documented by: Bupropion HCl (Bupropion 150 Mg Xl Tab) 300 mg PO DAILY [facility] Last Admin: 02/17/20 09:50 Dose: 300 mg Documented by: Duloxetine HCl (Duloxetine 60 Mg Cap) 120 mg PO DAILY [facility] Last Admin: 02/17/20 09:50 Dose: 120 mg Documented by: Fentanyl (Fentanyl 50 Mcg/Hour Patch) 50 mcg TD Q3D [facility] Last Admin: 02/17/20 14:28 Dose: 50 mcg Documented by: Folic Acid (Folic Acid 1 Mg Tab) 1 mg PO BID [facility] Last Admin: 02/17/20 09:50 Dose: 1 mg Documented by: Gabapentin (Gabapentin 300 Mg Cap) 600 mg PO TID [facility] Last Admin: 02/17/20 14:27 Dose: 600 mg Documented by: Lorazepam (Lorazepam 2 Mg/Ml Vial) 2 mg SLOW IVP Q6H PRN PRN Reason: AGITATION Last Admin: 02/14/20 15:03 Dose: 2 mg Documented by: Metoprolol Succinate (Metoprolol Succinate Xl 25 Mg Tab) 25 mg PO DAILY [facility] Last Admin: 02/17/20 09:51 Dose: 25 mg Documented by: Morphine Sulfate (Morphine 2 Mg/Ml Vial) 2 mg SLOW IVP Q4H PRN PRN Reason: Severe Pain (7-10) Ondansetron HCl (Ondansetron Pf 4 Mg/2 Ml Vial) 4 mg IVP Q6H PRN PRN Reason: Nausea/Vomiting Pantoprazole Sodium (Pantoprazole 40 Mg Tab) 40 mg PO DAILY [facility] Last Admin: 02/17/20 09:50 Dose: 40 mg Documented by: Entecavir 0.5 Mg (Tablet) 0 each PO DAILY [facility] Sodium Chloride (Flush - Normal Saline 10 Ml Syringe) 10 ml IVF Q12HR [facility] Last Admin: 02/17/20 09:56 Dose: Not Given Documented by: Sodium Chloride (Flush - Normal Saline 10 Ml Syringe) 10 ml IVF PRN PRN PRN Reason: Saline Flush Sterile Water (Sterile Water 10 Ml Vial) 1.2 ml FS PRN PRN PRN Reason: RECONSTITUTION Ziprasidone (Ziprasidone 20 Mg Vial) 20 mg IM Q4H PRN PRN Reason: Agitation Vital Signs & Weight: Vital Signs Temp Pulse Resp BP BP Pulse Ox 02/17/20 11:18 98.6 F 80 16 106/59 L 96 02/17/20 09:51 93 119/57 L 02/17/20 07:20 98.2 F 98 16 112/62 96 Admit Weight 144 lb 9.6 oz Weight 143 lb - Physical Exam General: no apparent distress HEENT: mucus membranes moist Neck: supple neck Cardiac: regular rate and rhythm Lungs: clear to auscultation Neuro: grossly intact Abdomen: active bowel sounds Extremities: no edema Skin: clear Musculoskeletal: no pain - Labs Result Diagrams: 02/17/20 09:35 02/17/20 09:35 Troponin/CKMB Troponin I 0.024 ng/mL (< 0.028) 02/09/20 13:33 - Telemetry Sinus rhythms and dysrhythmias: sinus rhythm - Assessment/Plan Assessment/Plan: 1. Paroxysmal Afib 2. AMS, resolved. 3. Hypokalemia PLAN: - Continue current meds. - Remains in sinus rhythm at this time. - Eliquis for stroke prophylaxis.
[2020-02-18 04:15] LABS: #Eosinphils 0.4 thou/uL (0.0-0.7); #Lymphocytes 1.1 thou/uL (1.20-3.40); #Monocytes 0.8 thou/uL (0.11-0.59); #Neutrophils 4.7 thou/uL (1.40-6.50); %Basophils 0.6 % (0.0-1.0); %Lymphocytes 15.2 % (21.0-51.0); %Neutrophils 67.2 % (42.0-75.0); Hemoglobin 10.3 g/dL (12.0-16.0); Mean Corpuscular HGB CONC 32.5 g/dL (32.0-36.0); Mean Corpuscular Hemoglobin 29.1 pg (27.0-31.0); Mean Corpuscular Volume 89.5 fL (78.0-98.0); Mean Platelet Volume 8.7 fL (7.4-10.4); Platelet Count 245 thou/uL (130-400); RBC Distribution Width 12.6 % (11.5-14.5); Red Blood Cell (RBC) Count 3.53 mill/uL (4.20-5.40); White Blood Cell (WBC) Count 6.9 thou/uL (4.8-10.8)
[2020-02-18 04:33] LABS: Anion Gap 13 mmol/L (10-20); BUN (Urea Nitrogen) 6 mg/dL (9.8-20.1); Calc. Creatinine Clearance 61 mL/min (70-130); Calcium 9.1 mg/dL (7.8-10.44); Carbon Dioxide 19 mmol/L (23-31); Chloride 108 mmol/L (98-107); Estimated GFR-MDRD 65; Glucose 102 mg/dL (83-110); Potassium 4.5 mmol/L (3.5-5.1); Sodium 135 mmol/L (136-145)
--- NOTE | 2020-02-18 10:01 | PDOC.HOSPP ---
- Subjective Encounter Date: 02/18/20 Encounter Time: 10:30 Subjective: Patient feeling better this AM. Did take some Xanax last night which allowed her to sleep really well but made her feel a little disoriented on waking. Completely oriented now and remembers our complete conversation from yesterday. - Objective Vital Signs & Weight: Vital Signs (12 hours) Temp Pulse Resp BP Pulse Ox 02/18/20 07:35 98.0 F 76 17 113/65 95 02/18/20 03:58 98.4 F 73 15 118/63 97 Weight Admit Weight 144 lb 9.6 oz Weight 145 lb 8 oz I&O: 02/17/20 02/18/20 02/19/20 06:59 06:59 06:59 Intake Total 1337 960 Output Total 1120 7755 Balance 212 -245 Result Diagrams: 02/18/20 03:56 02/18/20 03:56 Hospitalist ROS - Review of Systems Constitutional: denies: fever, chills Respiratory: denies: cough, shortness of breath Cardiovascular: denies: chest pain, palpitations Gastrointestinal: denies: nausea, vomiting - Medication Medications: Active Medications Generic Name Dose Route Start Last Admin Trade Name Freq PRN Reason Stop Dose Admin Acetaminophen 650 mg 02/09/20 02:31 02/16/20 18:15 Acetaminophen 325 Mg Tab PO 650 mg Q4H PRN Administration Headache/Fever/Mild Pain (1-3) Alprazolam 0.5 mg 02/09/20 09:07 02/10/20 03:44 Alprazolam 0.5 Mg Tab PO 0.5 mg HS PRN Administration Anxiety Amlodipine Besylate 10 mg 02/15/20 09:00 02/17/20 09:51 Amlodipine 10 Mg Tab PO 10 mg DAILY SARAH Administration Amoxicillin 500 mg 02/17/20 15:00 02/17/20 21:35 Amoxicillin 250 Mg Cap PO 500 mg TID SARAH Administration Anastrozole 1 mg 02/10/20 09:00 02/17/20 09:51 Anastrozole 1 Mg Tab PO 1 mg DAILY SARAH Administration Apixaban 5 mg 02/14/20 21:00 02/17/20 20:55 Apixaban 5 Mg Tab PO 5 mg BID SARAH Administration Bupropion HCl 300 mg 02/15/20 09:00 02/17/20 09:50 Bupropion 150 Mg Xl Tab PO 300 mg DAILY SARAH Administration Duloxetine HCl 120 mg 02/10/20 09:00 02/17/20 09:50 Duloxetine 60 Mg Cap PO 120 mg DAILY SARAH Administration Fentanyl 50 mcg 02/11/20 14:30 02/17/20 14:28 Fentanyl 50 Mcg/Hour Patch TD 50 mcg Q3D SARAH Administration Folic Acid 1 mg 02/09/20 21:00 02/17/20 20:55 Folic Acid 1 Mg Tab PO 1 mg BID SARAH Administration Gabapentin 600 mg 02/14/20 15:00 02/17/20 20:55 Gabapentin 300 Mg Cap PO 600 mg TID SARAH Administration Lorazepam 2 mg 02/14/20 10:56 02/14/20 15:03 Lorazepam 2 Mg/Ml Vial SLOW IVP 2 mg Q6H PRN Administration AGITATION Metoprolol Succinate 25 mg 02/16/20 09:00 02/17/20 09:51 Metoprolol Succinate Xl 25 Mg Tab PO 25 mg DAILY SARAH Administration Pantoprazole Sodium 40 mg 02/09/20 09:00 02/17/20 09:50 Pantoprazole 40 Mg Tab PO 40 mg DAILY SARAH Administration Sodium Chloride 10 ml 02/11/20 21:00 02/17/20 20:55 Flush - Normal Saline 10 Ml Syringe IVF Not Given Q12HR SARAH - Exam General Appearance: NAD, awake alert ENT: moist mucosa Heart: RRR, no murmur, no gallops, no rubs Respiratory: CTAB, no wheezes, no rales, no ronchi Gastrointestinal: soft, non-tender, non-distended, normal bowel sounds Psychiatric: normal affect, normal behavior, A&O x 3 Hosp A/P (1) Metabolic encephalopathy Code(s): G93.41 - METABOLIC ENCEPHALOPATHY Status: Resolved (2) UTI (urinary tract infection) Status: Acute (3) Hypernatremia Code(s): E87.0 - HYPEROSMOLALITY AND HYPERNATREMIA Status: Resolved (4) Hypokalemia Code(s): E87.6 - HYPOKALEMIA Status: Resolved (5) Chronic hepatitis B Code(s): B18.1 - CHRONIC VIRAL HEPATITIS B WITHOUT DELTA-AGENT Status: Chronic - Plan continue antibiotics, PT/OT, pediatric social worker, out of bed/ambulate, DVT proph w/SCDs AMS resolved Ativan IV PRN agitation/combativeness Geodon IM dosing, limit Limit sedation for daytime Transitioned Rocephin to oral Amoxicillin CM working on SNF Restarted Gabapentin 600mg TID tolerating diet
[2020-02-18] MEDS: Gabapentin 300 MG CAP PO SCH ×3 (11:05→20:00)
[2020-02-18] MEDS: Bupropion 150 MG XL TAB PO SCH (11:05)
[2020-02-18] MEDS: DULoxetine 60 MG CAP PO SCH (11:05)
[2020-02-18] MEDS: Folic Acid 1 MG TAB PO SCH ×2 (11:05→20:00)
[2020-02-18] MEDS: Amlodipine 10 MG TAB PO SCH (11:06)
[2020-02-18] MEDS: Apixaban 5 MG TAB PO SCH ×2 (11:06→20:00)
[2020-02-18] MEDS: AMOXicillin 250 MG CAP PO SCH ×3 (11:11→20:00)
[2020-02-18] MEDS: Anastrozole 1 MG TAB PO SCH (11:11)
--- NOTE | 2020-02-18 15:52 | PDOC.CPN ---
- Subjective Date: 02/18/20 Time: 15:51 Interval history: No new issues. She is back to baseline. - Review of Systems General: denies: fever/chills, weight/appetite/sleep changes, night sweats, fatigue Respiratory: denies: cough, congestion, shortness of breath, exercise intolerance Cardiovascular: denies: chest pain, palpitation, edema, paroxysmal nocturnal dyspnea, orthopnea Gastrointestinal: denies: nausea, vomiting, diarrhea, constipation, abd pain, GI bleeding Musculoskeletal: denies: pain, tenderness, stiffness, swelling, arthritis/arthralgias Neurological: denies: numbness, syncope, seizure, weakness - Objective Allergies/Adverse Reactions: Allergies Allergy/AdvReac Type Severity Reaction Status Date / Time NSAIDS (Non-Steroidal Allergy Verified 02/09/20 06:54 Anti-Inflamma Visit Medications: Current Medications Acetaminophen (Acetaminophen 325 Mg Tab) 650 mg PO Q4H PRN PRN Reason: Headache/Fever/Mild Pain (1-3) Last Admin: 02/16/20 18:15 Dose: 650 mg Documented by: Alprazolam (Alprazolam 0.5 Mg Tab) 0.5 mg PO HS PRN PRN Reason: Anxiety Last Admin: 02/10/20 03:44 Dose: 0.5 mg Documented by: Amlodipine Besylate (Amlodipine 10 Mg Tab) 10 mg PO DAILY [facility] Last Admin: 02/18/20 11:06 Dose: 10 mg Documented by: Amoxicillin (Amoxicillin 250 Mg Cap) 500 mg PO TID [facility] Last Admin: 02/18/20 11:11 Dose: 500 mg Documented by: Anastrozole (Anastrozole 1 Mg Tab) 1 mg PO DAILY [facility] Last Admin: 02/18/20 11:11 Dose: 1 mg Documented by: Apixaban (Apixaban 5 Mg Tab) 5 mg PO BID [facility] Last Admin: 02/18/20 11:06 Dose: 5 mg Documented by: Bupropion HCl (Bupropion 150 Mg Xl Tab) 300 mg PO DAILY [facility] Last Admin: 02/18/20 11:05 Dose: 300 mg Documented by: Duloxetine HCl (Duloxetine 60 Mg Cap) 120 mg PO DAILY [facility] Last Admin: 02/18/20 11:05 Dose: 120 mg Documented by: Fentanyl (Fentanyl 50 Mcg/Hour Patch) 50 mcg TD Q3D [facility] Last Admin: 02/17/20 14:28 Dose: 50 mcg Documented by: Folic Acid (Folic Acid 1 Mg Tab) 1 mg PO BID [facility] Last Admin: 02/18/20 11:05 Dose: 1 mg Documented by: Gabapentin (Gabapentin 300 Mg Cap) 600 mg PO TID [facility] Last Admin: 02/18/20 11:05 Dose: 600 mg Documented by: Lorazepam (Lorazepam 2 Mg/Ml Vial) 2 mg SLOW IVP Q6H PRN PRN Reason: AGITATION Last Admin: 02/14/20 15:03 Dose: 2 mg Documented by: Metoprolol Succinate (Metoprolol Succinate Xl 25 Mg Tab) 25 mg PO DAILY [facility] Last Admin: 02/18/20 11:06 Dose: 25 mg Documented by: Morphine Sulfate (Morphine 2 Mg/Ml Vial) 2 mg SLOW IVP Q4H PRN PRN Reason: Severe Pain (7-10) Ondansetron HCl (Ondansetron Pf 4 Mg/2 Ml Vial) 4 mg IVP Q6H PRN PRN Reason: Nausea/Vomiting Pantoprazole Sodium (Pantoprazole 40 Mg Tab) 40 mg PO DAILY [facility] Last Admin: 02/18/20 11:06 Dose: 40 mg Documented by: Entecavir 0.5 Mg (Tablet) 0 each PO DAILY [facility] Sodium Chloride (Flush - Normal Saline 10 Ml Syringe) 10 ml IVF Q12HR [facility] Last Admin: 02/18/20 11:11 Dose: 10 ml Documented by: Sodium Chloride (Flush - Normal Saline 10 Ml Syringe) 10 ml IVF PRN PRN PRN Reason: Saline Flush Sterile Water (Sterile Water 10 Ml Vial) 1.2 ml FS PRN PRN PRN Reason: RECONSTITUTION Ziprasidone (Ziprasidone 20 Mg Vial) 20 mg IM Q4H PRN PRN Reason: Agitation Vital Signs & Weight: Vital Signs Temp Pulse Resp BP BP Pulse Ox 02/18/20 11:06 97.7 F 72 16 109/72 109/72 96 02/18/20 07:35 98.0 F 76 17 113/65 95 02/18/20 03:58 98.4 F 73 15 118/63 97 Admit Weight 144 lb 9.6 oz Weight 145 lb 8 oz - Physical Exam General: no apparent distress HEENT: mucus membranes moist Neck: supple neck Cardiac: regular rate and rhythm Lungs: clear to auscultation Neuro: no lateralizing findings Abdomen: active bowel sounds Extremities: no edema Skin: clear Musculoskeletal: no pain - Labs Result Diagrams: 02/18/20 03:56 02/18/20 03:56 Troponin/CKMB Troponin I 0.024 ng/mL (< 0.028) 02/09/20 13:33 - Telemetry Sinus rhythms and dysrhythmias: sinus rhythm - Assessment/Plan Assessment/Plan: 1. Paroxysmal Afib 2. AMS, resolved. 3. Hypokalemia PLAN: - Continue current meds. - Remains in sinus rhythm at this time. - Eliquis for stroke prophylaxis. - PT
[2020-02-18] MEDS: ALPRAZolam 0.5 MG TAB PO PRN (20:00)
--- NOTE | 2020-02-19 07:46 | PDOC.HOSPP ---
- Subjective Encounter Date: 02/19/20 Encounter Time: 09:00 Subjective: Patient without complaint this AM. Doing well with no more confusion. - Objective Vital Signs & Weight: Vital Signs (12 hours) Temp Pulse Resp BP Pulse Ox 02/19/20 03:56 97.9 F 78 18 116/59 L 99 02/18/20 20:00 98.3 F 74 20 120/61 98 Weight Admit Weight 144 lb 9.6 oz Weight 144 lb I&O: 02/18/20 02/19/20 02/20/20 06:59 06:59 06:59 Intake Total 960 960 Output Total 9469 8120 Balance -806 -674 Result Diagrams: 02/18/20 03:56 02/18/20 03:56 Hospitalist ROS - Review of Systems Constitutional: denies: fever, chills Respiratory: denies: cough, shortness of breath Cardiovascular: denies: chest pain, palpitations Gastrointestinal: denies: nausea, vomiting, abdominal pain Genitourinary: denies: dysuria, hematuria - Medication Medications: Active Medications Generic Name Dose Route Start Last Admin Trade Name Freq PRN Reason Stop Dose Admin Acetaminophen 650 mg 02/09/20 02:31 02/16/20 18:15 Acetaminophen 325 Mg Tab PO 650 mg Q4H PRN Administration Headache/Fever/Mild Pain (1-3) Alprazolam 0.5 mg 02/09/20 09:07 02/18/20 20:00 Alprazolam 0.5 Mg Tab PO 0.5 mg HS PRN Administration Anxiety Amlodipine Besylate 10 mg 02/15/20 09:00 02/18/20 11:06 Amlodipine 10 Mg Tab PO 10 mg DAILY SARAH Administration Amoxicillin 500 mg 02/17/20 15:00 02/18/20 20:00 Amoxicillin 250 Mg Cap PO 500 mg TID SARAH Administration Anastrozole 1 mg 02/10/20 09:00 02/18/20 11:11 Anastrozole 1 Mg Tab PO 1 mg DAILY SARAH Administration Apixaban 5 mg 02/14/20 21:00 02/18/20 20:00 Apixaban 5 Mg Tab PO 5 mg BID SARAH Administration Bupropion HCl 300 mg 02/15/20 09:00 02/18/20 11:05 Bupropion 150 Mg Xl Tab PO 300 mg DAILY SARAH Administration Duloxetine HCl 120 mg 02/10/20 09:00 02/18/20 11:05 Duloxetine 60 Mg Cap PO 120 mg DAILY SARAH Administration Fentanyl 50 mcg 02/11/20 14:30 02/17/20 14:28 Fentanyl 50 Mcg/Hour Patch TD 50 mcg Q3D SARAH Administration Folic Acid 1 mg 02/09/20 21:00 02/18/20 20:00 Folic Acid 1 Mg Tab PO 1 mg BID SARAH Administration Gabapentin 600 mg 02/14/20 15:00 02/18/20 20:00 Gabapentin 300 Mg Cap PO 600 mg TID SARAH Administration Lorazepam 2 mg 02/14/20 10:56 02/14/20 15:03 Lorazepam 2 Mg/Ml Vial SLOW IVP 2 mg Q6H PRN Administration AGITATION Metoprolol Succinate 25 mg 02/16/20 09:00 02/18/20 11:06 Metoprolol Succinate Xl 25 Mg Tab PO 25 mg DAILY SARAH Administration Pantoprazole Sodium 40 mg 02/09/20 09:00 02/18/20 11:06 Pantoprazole 40 Mg Tab PO 40 mg DAILY SARAH Administration Sodium Chloride 10 ml 02/11/20 21:00 02/18/20 20:00 Flush - Normal Saline 10 Ml Syringe IVF 10 ml Q12HR SARAH Administration - Exam General Appearance: NAD, awake alert ENT: moist mucosa Heart: RRR, no murmur, no gallops, no rubs Respiratory: CTAB, no wheezes, no rales, no ronchi Gastrointestinal: soft, non-tender, non-distended, normal bowel sounds Psychiatric: normal affect, normal behavior, A&O x 3 Hosp A/P (1) Metabolic encephalopathy Code(s): G93.41 - METABOLIC ENCEPHALOPATHY Status: Resolved (2) UTI (urinary tract infection) Status: Acute (3) Hypernatremia Code(s): E87.0 - HYPEROSMOLALITY AND HYPERNATREMIA Status: Resolved (4) Hypokalemia Code(s): E87.6 - HYPOKALEMIA Status: Resolved (5) Chronic hepatitis B Code(s): B18.1 - CHRONIC VIRAL HEPATITIS B WITHOUT DELTA-AGENT Status: Chronic - Plan continue antibiotics, PT/OT, [employer] school social science teacher, out of bed/ambulate, DVT proph w/SCDs AMS resolved Ativan IV PRN agitation/combativeness Geodon IM dosing, limit Limit sedation for daytime Transitioned Rocephin to oral Amoxicillin, will need 4 more days for full 14 days antibiotics finish on 02/23/2020 CM working on SNF Restarted Gabapentin 600mg TID tolerating diet
[2020-02-19] MEDS: Amlodipine 10 MG TAB PO SCH (10:13)
[2020-02-19] MEDS: Folic Acid 1 MG TAB PO SCH ×2 (10:13→21:45)
[2020-02-19] MEDS: Gabapentin 300 MG CAP PO SCH ×3 (10:14→21:45)
[2020-02-19] MEDS: Bupropion 150 MG XL TAB PO SCH (10:14)
[2020-02-19] MEDS: DULoxetine 60 MG CAP PO SCH (10:14)
[2020-02-19] MEDS: Apixaban 5 MG TAB PO SCH ×2 (10:15→21:45)
[2020-02-19] MEDS: AMOXicillin 250 MG CAP PO SCH ×3 (10:15→21:45)
[2020-02-19] MEDS: Anastrozole 1 MG TAB PO SCH (10:15)
[2020-02-19 14:00] VITALS: BMI 26.3
[2020-02-19] MEDS ORDERED: Melatonin 3 MG TAB PO PRN (22:19)
[2020-02-20] MEDS: Vancomycin HCl 25 MG/ML Oral PO SCH ×4 (02:36→21:38)
--- NOTE | 2020-02-20 07:34 | PDOC.HOSPP ---
- Subjective Encounter Date: 02/20/20 Encounter Time: 09:30 Subjective: Patient with one loose stool this AM. states none yesterday but 2-3 loose stools the day before. No abdominal pain. No other complaints. - Objective Vital Signs & Weight: Vital Signs (12 hours) Temp Pulse Resp BP Pulse Ox 02/20/20 04:00 98.3 F 83 18 104/59 L 95 02/19/20 19:47 97.9 F 82 16 130/58 L 96 Weight Admit Weight 144 lb 9.6 oz Weight 144 lb 9.6 oz I&O: 02/19/20 02/20/20 02/21/20 06:59 06:59 06:59 Intake Total 960 1150 Output Total 1900 1360 Balance -940 -210 Result Diagrams: 02/20/20 10:31 02/20/20 10:31 Hospitalist ROS - Review of Systems Constitutional: denies: fever, chills Respiratory: denies: cough, shortness of breath Cardiovascular: denies: chest pain, palpitations, orthopnea Gastrointestinal: denies: nausea, vomiting, abdominal pain, diarrhea Genitourinary: denies: dysuria, hematuria - Medication Medications: Active Medications Generic Name Dose Route Start Last Admin Trade Name Freq PRN Reason Stop Dose Admin Acetaminophen 650 mg 02/09/20 02:31 02/16/20 18:15 Acetaminophen 325 Mg Tab PO 650 mg Q4H PRN Administration Headache/Fever/Mild Pain (1-3) Amoxicillin 500 mg 02/17/20 15:00 02/19/20 21:45 Amoxicillin 250 Mg Cap PO 500 mg TID SARAH Administration Anastrozole 1 mg 02/10/20 09:00 02/19/20 10:15 Anastrozole 1 Mg Tab PO 1 mg DAILY SARAH Administration Apixaban 5 mg 02/14/20 21:00 02/19/20 21:45 Apixaban 5 Mg Tab PO 5 mg BID SARAH Administration Bupropion HCl 300 mg 02/15/20 09:00 02/19/20 10:14 Bupropion 150 Mg Xl Tab PO 300 mg DAILY SARAH Administration Duloxetine HCl 120 mg 02/10/20 09:00 02/19/20 10:14 Duloxetine 60 Mg Cap PO 120 mg DAILY SARAH Administration Fentanyl 50 mcg 02/11/20 14:30 02/17/20 14:28 Fentanyl 50 Mcg/Hour Patch TD 50 mcg Q3D SARAH Administration Folic Acid 1 mg 02/09/20 21:00 02/19/20 21:45 Folic Acid 1 Mg Tab PO 1 mg BID SARAH Administration Gabapentin 600 mg 02/14/20 15:00 02/19/20 21:45 Gabapentin 300 Mg Cap PO 600 mg TID SARAH Administration Lorazepam 2 mg 02/14/20 10:56 02/14/20 15:03 Lorazepam 2 Mg/Ml Vial SLOW IVP 2 mg Q6H PRN Administration AGITATION Pantoprazole Sodium 40 mg 02/09/20 09:00 02/19/20 10:14 Pantoprazole 40 Mg Tab PO 40 mg DAILY SARAH Administration Sodium Chloride 10 ml 02/11/20 21:00 02/19/20 21:45 Flush - Normal Saline 10 Ml Syringe IVF 10 ml Q12HR SARAH Administration Vancomycin HCl 125 mg 02/20/20 01:45 02/20/20 02:36 Vancomycin Hcl 25 Mg/Ml Oral PO 125 mg Q6H SARAH Administration - Exam General Appearance: NAD, awake alert ENT: moist mucosa Heart: RRR, no murmur, no gallops, no rubs Respiratory: CTAB, no wheezes, no rales, no ronchi Gastrointestinal: soft, non-tender, non-distended, normal bowel sounds Psychiatric: normal affect, normal behavior, A&O x 3 Hosp A/P (1) Metabolic encephalopathy Code(s): G93.41 - METABOLIC ENCEPHALOPATHY Status: Resolved (2) UTI (urinary tract infection) Status: Acute (3) Hypernatremia Code(s): E87.0 - HYPEROSMOLALITY AND HYPERNATREMIA Status: Resolved (4) Hypokalemia Code(s): E87.6 - HYPOKALEMIA Status: Resolved (5) Chronic hepatitis B Code(s): B18.1 - CHRONIC VIRAL HEPATITIS B WITHOUT DELTA-AGENT Status: Chronic - Plan continue antibiotics, PT/OT, elementary school social worker, out of bed/ambulate, DVT proph w/SCDs AMS resolved Transitioned Rocephin to oral Amoxicillin, will need 4 more days for full 14 days antibiotics finish on 02/23/2020 Patient had reported diarrhea yesterday so C.diff ordered, but nursing now saying she has had no diarrhea. Her C.diff antigen and toxin did come back positive. Will check fecal leukocytes. Uncertain if actual c.diff infection but probably obligated to treat with vancomycin for 10 days given her need for antibiotics right now for her UTI. CM working on SNF Restarted Gabapentin 600mg TID tolerating diet
[2020-02-20] MEDS: Gabapentin 300 MG CAP PO SCH ×3 (08:05→21:38)
[2020-02-20] MEDS: Anastrozole 1 MG TAB PO SCH (08:06)
[2020-02-20] MEDS: Folic Acid 1 MG TAB PO SCH ×2 (08:06→21:38)
[2020-02-20] MEDS: DULoxetine 60 MG CAP PO SCH (08:06)
[2020-02-20] MEDS: Bupropion 150 MG XL TAB PO SCH (08:07)
[2020-02-20] MEDS: Apixaban 5 MG TAB PO SCH ×2 (08:07→21:38)
[2020-02-20] MEDS: AMOXicillin 250 MG CAP PO SCH ×3 (08:58→21:36)
[2020-02-20] MEDS ORDERED: Amlodipine 10 MG TAB PO SCH ×2 (09:00→09:42)
[2020-02-20] MEDS ORDERED: Amlodipine 5 MG TAB PO SCH (09:45)
[2020-02-20 10:45] LABS: Platelet Count 310 thou/uL (130-400)
[2020-02-20] MEDS: fentaNYL 50 mcg/hour Patch TD SCH (15:01)
[2020-02-20] MEDS: Sodium Chloride 0.9% 1,000 ML IV SCH (17:25)
[2020-02-20] MEDS ORDERED: ALPRAZolam 0.5 MG TAB PO PRN (17:43)
[2020-02-21] MEDS: Sodium Chloride 0.9% 1,000 ML IV SCH (03:03)
[2020-02-21] MEDS: Vancomycin HCl 25 MG/ML Oral PO SCH ×3 (03:03→13:57)
[2020-02-21 04:37] LABS: #Eosinphils 0.4 thou/uL (0.0-0.7); #Lymphocytes 1.1 thou/uL (1.20-3.40); #Monocytes 0.7 thou/uL (0.11-0.59); #Neutrophils 3.2 thou/uL (1.40-6.50); %Basophils 0.6 % (0.0-1.0); %Eosinophils 7.3 % (0.0-10.0); %Monocytes 12.1 % (0.0-10.0); Hemoglobin 9.3 g/dL (12.0-16.0); Mean Corpuscular HGB CONC 32.9 g/dL (32.0-36.0); Mean Corpuscular Volume 88.2 fL (78.0-98.0); Mean Platelet Volume 7.7 fL (7.4-10.4); Platelet Count 291 thou/uL (130-400); RBC Distribution Width 12.4 % (11.5-14.5); White Blood Cell (WBC) Count 5.3 thou/uL (4.8-10.8)
[2020-02-21 05:02] LABS: Anion Gap 13 mmol/L (10-20); BUN (Urea Nitrogen) 8 mg/dL (9.8-20.1); Calc. Creatinine Clearance 59 mL/min (70-130); Calcium 8.7 mg/dL (7.8-10.44); Carbon Dioxide 18 mmol/L (23-31); Chloride 111 mmol/L (98-107); Estimated GFR-MDRD 62; Glucose 92 mg/dL (83-110); Potassium 3.7 mmol/L (3.5-5.1); Sodium 138 mmol/L (136-145)
[2020-02-21] MEDS: Bupropion 150 MG XL TAB PO SCH (08:32)
[2020-02-21] MEDS: Gabapentin 300 MG CAP PO SCH ×2 (08:32→14:59)
[2020-02-21] MEDS: AMOXicillin 250 MG CAP PO SCH ×2 (08:32→15:00)
[2020-02-21] MEDS: DULoxetine 60 MG CAP PO SCH (08:33)
[2020-02-21] MEDS: Folic Acid 1 MG TAB PO SCH (08:34)
[2020-02-21] MEDS: Apixaban 5 MG TAB PO SCH (08:34)
[2020-02-21] MEDS: Anastrozole 1 MG TAB PO SCH (08:34)
[2020-02-21] MEDS ORDERED: Amlodipine 5 MG TAB PO SCH (09:00)
--- NOTE | 2020-02-21 13:27 | DIS ---
DATE OF ADMISSION: 02/09/2020 DATE OF DISCHARGE: 02/21/2020 PRIMARY CARE PHYSICIAN: Erwin Gunn. DIAGNOSES: 1. Acute metabolic encephalopathy multifactorial resolved. 2. Urinary tract infection with Escherichia coli species, resolved. 3. Clostridium difficile diarrhea. 4. Hypokalemia, resolved. 5. Hypernatremia, resolved. 6. Chronic hepatitis B stable. 7. Deconditioning. 8. Paroxysmal atrial fibrillation with current sinus mechanism. 9. Chronic anticoagulation with Eliquis. CONSULTATIONS: Jerrell Baker MD with Cardiology Service. PERTINENT LABORATORY AND X-RAY FINDINGS: Sodium ranged between 134 to 147, potassium ranged between 2.8 to 4.5, lactic acid level ranged between 0.9 to 1.8, magnesium level ranged between 1.7 to 2.1. Ammonia level ranged between 17 to 27, TSH 1.36, free T4 level 1.30. CBC showed hemoglobin ranging between 9.3 to 12.2 urine drug screen dated 02/09/2020, positive for benzodiazepines. COVID-19 PCR not detected 02/09/2020. Blood culture positive 1 for alpha strep and presumptive corynebacterium consistent with skin contaminant. Urine culture dated 02/09/2020, showed 50,000 75 to 000 colonies of E coli species pansensitive. C difficile antigen and toxin dated 02/19/[address] of the brain dated 02/08/2020, showed no acute intracranial process. CT of the abdomen and pelvis dated 02/08/2020, showed no acute process. Portable chest x-ray dated 02/08/2020, showed no acute cardiopulmonary process. CT of the brain dated 02/14/2020, showed no acute intracranial process. HOSPITAL COURSE: The patient was initially admitted after presenting with altered mental status. The patient with concomitant urinary tract infection with Escherichia coli species, placed on broad-spectrum IV antibiotic therapy initially with IV Rocephin and vancomycin. Urine culture did show a pansensitive E. coli species at which point, the patient was transitioned to Rocephin as a single agent. The patient also underwent extensive evaluation due to persistent metabolic encephalopathy without specific extremity with likely multifactorial process. The patient had protracted altered mentation during the hospital course requiring chemical and mechanical restraint due to combativeness with nursing staff. The patient was slow to clinically improve; however, was resumed on her home regimen including fentanyl patches in addition to gabapentin, at which point, the patient continued to slowly clinically improve and return to baseline functional status. The patient received general supportive management throughout the hospital course and was deemed an appropriate candidate for ongoing supervised medical care and physical and occupational therapy due to deconditioning. The patient was noted extremity patient was evaluated and noted positive with Clostridium difficile antigen and toxin and initiated on oral vancomycin. Current recommendations are to continue a 10-day course of oral vancomycin in addition to Florastor after discharge. I have examined the patient at the time of discharge and discussed followup instructions. The patient verbalizes understanding and agreement and ready for discharge on 02/21/2020. DISCHARGE MEDICATIONS: 1. Arimidex 1 mg p.o. daily. 2. Cymbalta 120 mg p.o. daily. 3. Ditropan 5 mg p.o. daily. 4. Entecavir 0.5 mg p.o. daily. 5. Folic acid 1 mg p.o. b.i.d. 6. Norvasc 10 mg p.o. daily. 7. Toprol-XL 50 mg p.o. daily. 8. Wellbutrin XL 300 mg p.o. q.a.m. 9. Xanax 0.5 mg p.o. at bedtime p.r.n. 10. Amoxicillin 500 mg p.o. t.i.d. until 02/25/2020. 11. Fentanyl patch 50 mcg transdermally q.72 hours. 12. Eliquis 5 mg p.o. b.i.d. 13. Vancomycin 125 mg p.o. q.6 hours until 03/01/2020. 14. Florastor 250 mg p.o. daily. 15. Lasix 40 mg p.o. daily. 16. Gabapentin 600 mg p.o. t.i.d. 17. Protonix 40 mg p.o. daily. FOLLOWUP: The patient followup with her primary care provider, Erwin Gunn. CONDITION ON DISCHARGE: Fair. ACTIVITY: Ad yahaira, rolling walker for ambulation with standby/contact guard assistance. DIET: Heart healthy. CODE STATUS: Full. DISPOSITION: Discharged to [facility] 02/21/2020. TIME SPENT: Total time preparing and coordinating discharge, 37 minutes. Job ID: [id number]
[2020-02-21 15:17] VITALS: BP 104/57; TEMP 97.7
== END 2020-02-21 16:25 | DRG 689 ==
LOC: ERS 23:41 → 2NO 02-09 02:17
PROVIDERS: ADMIT Internal Medicine; ATTEND Emergency Medicine
DX: N39.0 Urinary tract infection, site not specified (principal); G93.41 Metabolic encephalopathy; A04.72 Enterocolitis due to Clostridium difficile, not specified as recurrent; E87.0 Hyperosmolality and hypernatremia; I47.1 Supraventricular tachycardia; B96.20 Unspecified Escherichia coli [E. coli] as the cause of diseases classified elsewhere; Z20.828 Contact with and (suspected) exposure to other viral communicable diseases; E87.6 Hypokalemia; B18.2 Chronic viral hepatitis C; I48.0 Paroxysmal atrial fibrillation; G60.9 Hereditary and idiopathic neuropathy, unspecified; E86.0 Dehydration; E78.5 Hyperlipidemia, unspecified; Z79.899 Other long term (current) drug therapy; Z79.01 Long term (current) use of anticoagulants; R45.1 Restlessness and agitation
CPT/HCPCS: 36415; 36416; 51702; 70450; 71045; 74176; 80048; 80053; 80202; 80306; 80307; 81003; 81015; 82140; 82565; 83605; 83690; 83735; 84100; 84439; 84443; 84484; 85014; 85018; 85025; 85049; 85610; 85730; 87040; 87077; 87086; 87149; 87186; 87324; 87449; 87635; 93005; 93010; 96365; 96366; 96367; 96375; C9113; J0153; J0696; J1160; J1650; J2060; J2550; J3370; J3475; J3480; J3486; J3490; J7050; J7070; U0003

== ENCOUNTER 2020-03-13 09:12 | Inpatient (IN) | payer MEDICARE ==
[2020-03-13] MEDS ORDERED: Haloperidol Lactate 5 MG/ML VIAL ONE ×2 (09:41→09:43)
[2020-03-13 09:47] LABS: Bilirubin Negative (Negative); Blood, Urine Negative (Negative); Clarity Clear (Clear); Glucose, Urine (Dipstick) Normal (Negative); Ketone, Urine Negative (Negative); Leukocyte Negative Leu/uL (Negative); Nitrite Negative (Negative); Protein, Urine (Dipstick) Negative (Neg-Trace); Specific Gravity, Urine 1.008 (1.002-1.036); Urobilinogen Normal mg/dL (Less than 2)
[2020-03-13 09:52] LABS: #Basophils 0.1 thou/uL (0.0-0.2); #Eosinphils 0.3 thou/uL (0.0-0.7); #Lymphocytes 1.1 thou/uL (1.20-3.40); #Monocytes 0.6 thou/uL (0.11-0.59); #Neutrophils 6.6 thou/uL (1.40-6.50); %Basophils 0.6 % (0.0-1.0); %Eosinophils 3.1 % (0.0-10.0); %Lymphocytes 12.5 % (21.0-51.0); %Monocytes 6.6 % (0.0-10.0); %Neutrophils 77.2 % (42.0-75.0); Mean Corpuscular HGB CONC 32.5 g/dL (32.0-36.0); Mean Corpuscular Hemoglobin 28.3 pg (27.0-31.0); Mean Corpuscular Volume 87.1 fL (78.0-98.0); Mean Platelet Volume 6.8 fL (7.4-10.4); Platelet Count 442 thou/uL (130-400); RBC Distribution Width 12.7 % (11.5-14.5); Red Blood Cell (RBC) Count 3.87 mill/uL (4.20-5.40); White Blood Cell (WBC) Count 8.6 thou/uL (4.8-10.8)
[2020-03-13 10:09] LABS: ALT (SGPT) 14 U/L (8-55); AST (SGOT) 19 U/L (5-34); Albumin 3.7 g/dL (3.4-4.8); Alkaline Phosphatase 68 U/L (40-110); Anion Gap 16 mmol/L (10-20); BUN (Urea Nitrogen) 5 mg/dL (9.8-20.1); Bilirubin, Total 0.4 mg/dL (0.2-1.2); Calc. Creatinine Clearance 0 mL/min (70-130); Calcium 9.6 mg/dL (7.8-10.44); Carbon Dioxide 27 mmol/L (23-31); Chloride 103 mmol/L (98-107); Estimated GFR-MDRD 69; Globulin 2.8 g/dL (2.4-3.5); Glucose 93 mg/dL (83-110); Lipase 29 U/L (8-78); Potassium 3.1 mmol/L (3.5-5.1); Protein, Total 6.5 g/dL (6.0-8.3); Sodium 143 mmol/L (136-145)
--- NOTE | 2020-03-13 10:09 | RAD ---
Exam: Chest one view HISTORY:Altered mental status and fever Comparison: 02/09/2020 FINDINGS: Patient is slightly rotated to the left. Cardiac silhouette: Normal Aorta: Unremarkable Pulmonary vessels: Normal Costophrenic angles: Clear LUNGS: No masses or consolidation. Pneumothorax: None Osseous abnormalities: No acute osseous abnormalities. Chronic changes in the left and right shoulder . IMPRESSION: No acute cardiopulmonary process.
--- NOTE | 2020-03-13 10:11 | CT ---
CT HEAD WITHOUT CONTRAST: Date: 03/13/2020 INDICATION: Mental status change. Comparison made to head CT of 02/14/2020. FINDINGS: Ventricles have normal size and position. Mild cortical volume loss again noted. Left basal ganglia c alcification is stable. No mass, infarct, or hemorrhage. No interval change. IMPRESSION: No acute findings. POS: [facility]
[2020-03-13 10:30] LABS: Bicarbonate (HCO3v) 28.9 mmol/L (22.0-28.0); CO2 Tension (PvCO2) 38.9 mmHg (40.0-50.0); Calcium, Ionized 1.14 mmol/L (1.15-1.33); Chloride 104 mmol/L (98-107); Hemoglobin - Calc 10.1 g/dL (12.0-16.0); Potassium 2.7 mmol/L (3.5-5.1); Sodium 144 mmol/L (138-145); T. Carbon Dioxide 30.1 mmol/L (22.0-28.0)
[2020-03-13 10:40] LABS: Medtox Reader # READER 4
[2020-03-13 10:41] LABS: Amphetamine Not Detected (NotDetected); Barbiturates Screen Not Detected (NotDetected); Benzodiazepine Screen Detected (NotDetected); Cocaine Metabolite Screen Not Detected (NotDetected); Medtox Control Line Valid? VALID (VALID); Methadone Not Detected (NotDetected); Methamphetamine Not Detected (NotDetected); Opiate Screen Not Detected (NotDetected); Oxycodone Screen Not Detected (NotDetected); Phencyclidine (PCP) Not Detected (NotDetected); THC/Cannabinoid Screen Not Detected (NotDetected); Tricyclic Screen Not Detected (NotDetected)
[2020-03-13] MEDS ORDERED: Lorazepam 2 MG/ML VIAL ONE ×2 (10:47→12:26)
[2020-03-13] MEDS ORDERED: diphenhydrAMINE 50 MG/ML VIAL ONE (11:40)
[2020-03-13 12:12] LABS: SARS-CoV-2 NAA Rapid Test Not Detected (NotDetected)
[2020-03-13] MEDS ORDERED: cefTRIAXone\\ROCEPHIN 1 GM VIAL ONE (12:27)
[2020-03-13] MEDS ORDERED: OLANZapine 5 MG TAB ONE (12:27)
[2020-03-13] MEDS ORDERED: OLANZapine 10 MG VIAL IM SCH (13:00)
[2020-03-13] MEDS ORDERED: OLANZapine 5 MG TAB PO SCH (13:00)
[2020-03-13] MEDS ORDERED: Haloperidol Lactate 5 MG/ML VIAL SLOW IVP SCH (13:00)
[2020-03-13 13:18] LABS: Lactic Acid 0.8 mmol/L (0.5-2.2)
[2020-03-13] MEDS ORDERED: Fentanyl 100 MCG/2 ML VIAL ONE (13:41)
[2020-03-13] MEDS ORDERED: Acetaminophen 325 MG TAB PO PRN (13:44)
[2020-03-13] MEDS ORDERED: Fentanyl 100 MCG/2 ML VIAL SLOW IVP PRN (13:51)
--- NOTE | 2020-03-13 14:12 | PDOC.HHP ---
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 She is on large doses of gabapentin and on a fentanyl patch at 37.5 mcg. Patient was recently admitted to this facility for altered mental status, encephalopathy, agitation. She required several days of restraints and sedation. She was felt to have a urinary tract infection at that time. She also had atrial fibrillation with rapid ventricular response. She ultimately did improve and her mental status got better although according to her son who is present today she never fully got back to her prior level. Patient son reports that prior to her previous admission she was fairly cognitively intact although she did have some mild short-term memory issues. After her last admission her memory has been worse. She was discharged to a rehab and there she continued to have some slightly decreased memory. When she was completed with the rehab she returned home and did well for a few days however she has subsequently become a bit more confused, agitated and altered. He brought her back to the emergency department today. In discussing the situation with her son he indicated that she does have the fentanyl patch at 37.5 mcg every 3 days. He says she is usually pretty diligent about staying on top of that but he did note yesterday that she was wearing a patch that had on the . He replaced it last evening. It is the same batch that she had prior to her previous admission with similar symptoms. He said she did have some retching this morning although she did not have vomiting. This again was very similar to her previous presentation. He is unaware of her having any abdominal pain. He has asked her about diarrhea and she has said that she has not had any even prior to becoming more confused and agitated. He is unaware of any fever or any other symptoms. ED Course: She received 5 mg of Haldol x2, Zyprexa 5 mg x 1, Ativan 2 mg x 2 and Rocephin. Ultimately however her urinalysis did not demonstrate evidence of UTI. Hospitalist ROS - Review of Systems ROS unobtainable: due to mental status Other: Patient's son says she had been denying diarrhea. He says she has not eaten in 24 hours. She did have the vomiting mentioned above. - Medication Medications: Fentanyl 37.5 mcg patch every 3 days Gabapentin 600 mg p.o. 3 times daily duloxetine 120 mg p.o. daily Folic acid 1 mg p.o. twice daily Arimidex 1 mg p.o. daily Hospitalist History - Past Medical History Psych: reports: Depression Other Medical History: Hypertension, breast cancer, hepatitis B, depression - Past Surgical History Other Surgical History: Rotator cuff repair, breast surgery, lumpectomy for breast cancer with follow-up radiation therapy, lumbar spine surgery - Social History Smoking Status: Never smoker Alcohol: reports: None Drugs: reports: none - Exam General - other findings: Patient is very agitated and confused Neck: supple, symmetric, no JVD Heart: RRR, no murmur, no gallops, no rubs, normal peripheral pulses Respiratory: CTAB, no wheezes, no rales, no ronchi, normal chest expansion, no tachypnea, normal percussion Gastrointestinal: soft, non-tender, non-distended, normal bowel sounds, no palpable masses, no hepatomegaly, no splenomegaly, no bruit Extremities: no cyanosis, no clubbing, no edema Skin: normal turgor Neurological: no focal deficits Musculoskeletal: normal tone, normal strength, no muscle wasting Psychiatric - other findings: Agitated confused Hospitalist Results - Labs Result Diagrams: 03/13/20 09:27 03/13/20 09: Lab results: WBC 8.6 thou/uL (4.8-10.8) 03/13/20 09: Hgb 11.0 g/dL (12.0-16.0) L 03/13/20: Hct 33.7 % (36.0-47.0) L 03/13/20 09: MCV 87.1 fL (78.0-98.0) 03/13/20 09: Plt Count 442 thou/uL (130-400) H 03/13/20 09: Neutrophils % 77.2 % (42.0-75.0) H 03/13/20 09: VBG pCO2 38.9 mmHg (40.0-50.0) L 03/13/20 10:23 VBG pO2 62.3 mmHg (35.0-45.0) H 03/13/20 10: Sodium 143 mmol/L (136-145) 03/13/20 09: Potassium 3.1 mmol/L (3.5-5.1) L 03/13/20 09:27 Chloride 103 mmol/L (98-107) 03/13/20 09:27 Carbon Dioxide 27 mmol/L (23-31) 03/13/20 09:27 BUN 5 mg/dL (9.8-20.1) L 03/13/20 09:27 Creatinine 0.82 mg/dL (0.6-1.1) 03/13/20 09:27 Glucose 93 mg/dL (83-110) 03/13/20 09:27 Lactic Acid 0.8 mmol/L (0.5-2.2) 03/13/20 12:39 Calcium 9.6 mg/dL (7.8-10.44) 03/13/20 09:27 Total Bilirubin 0.4 mg/dL (0.2-1.2) 03/13/20 09:27 AST 19 U/L (5-34) 03/13/20 09:27 ALT 14 U/L (8-55) 03/13/20 09:27 Alkaline Phosphatase 68 U/L (40-110) 03/13/20 09:27 Ammonia 27 umol/L (18-72) 03/13/20 10:11 Troponin I 0.010 ng/mL (< 0.028) 03/13/20 09:27 Serum Total Protein 6.5 g/dL (6.0-8.3) 03/13/20 09:27 Albumin 3.7 g/dL (3.4-4.8) 03/13/20 09:27 Lipase 29 U/L (8-78) 03/13/20 09:27 Urine Ketones Negative mg/dL (Negative) 03/13/20 09:20 Urine Blood Negative (Negative) 03/13/20 09:20 Urine Nitrite Negative (Negative) 03/13/20 09:20 Ur Leukocyte Esterase Negative Aishwarya/uL (Negative) 03/13/20 09:20 - Radiology Interpretation CT scan - head Status: report reviewed by me (Negative) Chest x-ray Status: report reviewed by me (Negative) Hospitalist H&P A/P - Problem (1) Metabolic encephalopathy Code(s): G93.41 - METABOLIC ENCEPHALOPATHY Status: Resolved (2) Autoimmune disorder Code(s): D89.89 - OTH DISRD INVOLVING THE IMMUNE MECHANISM, NEC Status: Acute (3) Chronic hepatitis B Code(s): B18.1 - CHRONIC VIRAL HEPATITIS B WITHOUT DELTA-AGENT Status: Chronic (4) Hypercholesteremia Code(s): E78.0 - PURE HYPERCHOLESTEROLEMIA * DO NOT USE * Status: Chronic (5) Hypertension Code(s): I10 - ESSENTIAL (PRIMARY) HYPERTENSION Status: Chronic (6) Hypokalemia Code(s): E87.6 - HYPOKALEMIA Status: Resolved (7) Chronic pain syndrome Code(s): G89.4 - CHRONIC PAIN SYNDROME Status: Acute (8) History of breast cancer Code(s): Z85.3 - PERSONAL HISTORY OF MALIGNANT NEOPLASM OF BREAST Status: Acute - Plan Plan: Acute metabolic encephalopathy: At this point I am most concerned that the patient may be having some opioid withdrawal. She has fentanyl patches. She had one replaced last night however her drug screen today is negative for opioids. Concerning that she either has a bad batch or she is not absorbing it adequately. I suspect it would be positive at this point. This is the same batch of patches that she was using when she was admitted the first time as well. It was not detected at that time either. Other possibilities include progression of dementia although I think this is far less likely. It is also possible that she could be having some serotonin syndrome or serotonin withdrawal syndrome. I have given her dose of fentanyl and ordered renewed patches at 37.5 mcg. The rest of her metabolic work-up is unremarkable other than some low potassium which is not likely contributory. She has no evidence of underlying infection at this time. I did explain to her son that it might take a bit of time for this to fully resolve itself even with the resumption of the opioids. We will continue to look for other potential sources if she does not improve quickly. May also need to consider neurology consult. Hypokalemia: IV repletion. Continue with D5 half-normal saline with potassium supplementation due to her poor p.o. intake for the last day. Chronic pain syndrome: Continue with her fentanyl as stated above. Depression: We will resume duloxetine when she is able to take p.o.'s more reliably. Hepatitis B: We will resume her antiviral medications when she is reliably taking p.o.'s History of breast cancer: We will resume Arimidex when she is reliably taking p.o. medications. Hypertension: We will resume her home medications when she is reliably taking p.o. medications. Continue to monitor blood pressure and will provide as needed IVs if necessary. History of atrial fibrillation: We will resume her Eliquis if she can reliably take p.o.'s. Otherwise we will need to transition to Lovenox by tomorrow. Will need to resume her beta- blockers as well. Currently adequately rate controlled.
[2020-03-13] MEDS ORDERED: Potassium Chloride 40 MEQ in Sodium Chloride 0.9% 250 ML 250 ML IVPB SCH (14:30)
[2020-03-13] MEDS: D5 1/2 NS w/20 mEq KCL 1,000 ML IV SCH (14:46)
[2020-03-13 16:09] VITALS: BMI 25.0
[2020-03-13] MEDS: Famotidine/PF 20 mg/2ml Vial SLOW IVP SCH (20:00)
[2020-03-14] MEDS ORDERED: Fentanyl 100 MCG/2 ML VIAL SLOW IVP PRN (03:49)
[2020-03-14] MEDS: D5 1/2 NS w/20 mEq KCL 1,000 ML IV SCH ×2 (04:59→15:38)
[2020-03-14] MEDS ORDERED: Lorazepam 2 MG/ML VIAL SLOW IVP SCH (05:00)
[2020-03-14 06:43] LABS: #Eosinphils 0.4 thou/uL (0.0-0.7); #Monocytes 1.2 thou/uL (0.11-0.59); %Basophils 0.3 % (0.0-1.0); %Eosinophils 4.1 % (0.0-10.0); %Lymphocytes 10.3 % (21.0-51.0); %Monocytes 12.1 % (0.0-10.0); %Neutrophils 73.2 % (42.0-75.0); Hemoglobin 10.2 g/dL (12.0-16.0); Mean Corpuscular HGB CONC 31.9 g/dL (32.0-36.0); Mean Corpuscular Hemoglobin 28.4 pg (27.0-31.0); Mean Platelet Volume 7.1 fL (7.4-10.4); Platelet Count 355 thou/uL (130-400); RBC Distribution Width 12.9 % (11.5-14.5); Red Blood Cell (RBC) Count 3.61 mill/uL (4.20-5.40); White Blood Cell (WBC) Count 9.5 thou/uL (4.8-10.8)
[2020-03-14 07:02] LABS: Anion Gap 14 mmol/L (10-20); BUN (Urea Nitrogen) Less than 4 mg/dL (9.8-20.1); Calc. Creatinine Clearance 66 mL/min (70-130); Calcium 8.7 mg/dL (7.8-10.44); Carbon Dioxide 25 mmol/L (23-31); Chloride 110 mmol/L (98-107); Estimated GFR-MDRD 68; Glucose 80 mg/dL (83-110); Potassium 3.1 mmol/L (3.5-5.1); Sodium 146 mmol/L (136-145)
[2020-03-14] MEDS: Famotidine/PF 20 mg/2ml Vial SLOW IVP SCH ×2 (08:18→21:40)
--- NOTE | 2020-03-14 12:41 | PDOC.HOSPP ---
- Subjective Encounter Date: 03/14/20 Encounter Time: 08:00 Subjective: is snoring and in deep sleep, awakens to deep stimuli but falls asleep soon not in distress has son and sitter at bedside, is in full restraints - Objective Vital Signs & Weight: Vital Signs (12 hours) Temp Pulse Resp BP Pulse Ox 03/14/20 11:47 98.4 F 93 20 126/76 93 L 03/14/20 08:00 94 L 03/14/20 07:38 98.2 F 97 18 135/76 94 L 03/14/20 04:58 97.7 F 92 18 146/84 H 95 Weight Weight 150 lb 0.04 oz Result Diagrams: 03/14/20 06:03 03/14/20 06:03 Hospitalist ROS - Medication Medications: Active Medications Generic Name Dose Route Start Last Admin Trade Name Freq PRN Reason Stop Dose Admin Famotidine 20 mg 03/13/20 21:00 03/14/20 08:18 Famotidine/Pf 20 Mg/2ml Vial SLOW IVP 20 mg Q12HR SARAH Administration Fentanyl 25 mcg 03/13/20 18:00 03/13/20 18:37 Fentanyl 25 Mcg/Hour Patch TD 25 mcg Q3D SARAH Administration Fentanyl 12 mcg 03/13/20 18:00 03/13/20 18:37 Fentanyl 12 Mcg/Hour Patch TD 12 mcg Q3D SARAH Administration Fentanyl 25 mcg 03/14/20 03:49 03/14/20 03:55 Fentanyl 100 Mcg/2 Ml Vial SLOW IVP 25 mcg Q2H PRN Administration Pain Potassium Chloride/Dextrose/Sod Cl 1,000 mls @ 75 mls/hr 03/13/20 14:15 03/14/20 04:59 D5 1/2 Ns W/20 Meq Kcl IV 1,000 mls .[id number] SARAH Administration - Exam Eye: PERRL, anicteric sclera ENT: no oropharyngeal lesions, dry oral mucosa Neck: supple, no JVD Heart: RRR, no murmur Respiratory: no wheezes, no rales, rhonchi Gastrointestinal: soft, non-tender, non-distended, normal bowel sounds Extremities: no cyanosis, no edema Neurological: cranial nerve grossly intact, no focal deficits Hosp A/P (1) Metabolic encephalopathy Code(s): G93.41 - METABOLIC ENCEPHALOPATHY Status: Acute (2) Autoimmune disorder Code(s): D89.89 - OTH DISRD INVOLVING THE IMMUNE MECHANISM, NEC Status: Chronic (3) Chronic pain syndrome Code(s): G89.4 - CHRONIC PAIN SYNDROME Status: Chronic (4) History of breast cancer Code(s): Z85.3 - PERSONAL HISTORY OF MALIGNANT NEOPLASM OF BREAST Status: Chronic (5) Chronic hepatitis B Code(s): B18.1 - CHRONIC VIRAL HEPATITIS B WITHOUT DELTA-AGENT Status: Chronic (6) Depression Code(s): F32.9 - MAJOR DEPRESSIVE DISORDER, SINGLE EPISODE, UNSPECIFIED Status: Chronic Qualifiers: Depression Type: unspecified Qualified Code(s): F32.9 - Major depressive disorder, single episode, unspecified (7) Hypercholesteremia Code(s): E78.0 - PURE HYPERCHOLESTEROLEMIA * DO NOT USE * Status: Chronic (8) Hypertension Code(s): I10 - ESSENTIAL (PRIMARY) HYPERTENSION Status: Chronic Qualifiers: Hypertension type: essential hypertension Qualified Code(s): I10 - Essential (primary) hypertension (9) Peripheral neuropathy Code(s): G62.9 - POLYNEUROPATHY, UNSPECIFIED Status: Chronic Qualifiers: Peripheral neuropathy type: idiopathic neuropathy, unspecified Qualified Code(s): G60.9 - Hereditary and idiopathic neuropathy, unspecified (10) Hypokalemia Code(s): E87.6 - HYPOKALEMIA Status: Acute - Plan was off restraints for 2 hrs then woke up and got agitated, son was at bedside along with sitter was placed back in restraints no signs of meningismus clinically, pt is on entacavir for hep B, ?immunosuppressed, will get ID consult, ?Lumbar puncture per ID advice (might require anesthesia help for sedation) no signs of gross infection, prelim blood and urine cs are -ve is on fentanyl tts, iv fluids start oral diet when she is more awake and oriented d/w son at bedside prior echo in june showed ef of 45% with inferolat hypokinesis, has not had outpt f/u with cardio yet, no prior h/o cad hemostable for now, will f/u
[2020-03-14] MEDS ORDERED: FLU VACC QS2020-21(65YR UP)/PF 240 MCG/0.7 ML SYRINGE IM ONE (16:30)
[2020-03-14] MEDS: Folic Acid 1 MG TAB PO SCH (21:40)
[2020-03-14] MEDS: Apixaban 5 MG TAB PO SCH (21:40)
--- NOTE | 2020-03-14 23:58 | CON ---
DATE OF CONSULTATION: REASON FOR CONSULT: Altered mental state. HISTORY OF PRESENT ILLNESS: A 74-year-old patient with history of chronic hepatitis B on Entecavir as well as hypertension, who was brought to the emergency room because of altered mental state initially on February 07. She was brought by EMS and could not provide history at the emergency room, but had been vomiting for several days. She was described by the ER physician in January has been alert and oriented x2, but not time. Her medication list then was quite extensive and included: Lasix, Potassium,Wellbutrin, Norvasc, Anastrozole, Entecavir, Atorvastatin, Alprazolam. Duloxetine, Oxybutynin, Eliquis, Folic acid. Initial findings included tachycardia at 116 and BP 130/90, respirations 28, O2 saturation 99. The exam was remarkable for dry oral mucosa. Lungs and cardiovascular examination was not remarkable. The abdominal examination was remarkable for some abdominal tenderness, but no rebound. Other findings included a white cell count of 7.1, hemoglobin 10. Potassium 3.0, glucose 116, 78% neutrophils, creatinine 0.94. Transaminases and alkaline phosphatase normal. Ammonia was 27. Lactic acid 1.8, calcium 8.8, bilirubin 0.4, and albumin is 3.4. Lipase 14. Urine wbc 21 to 50. So, the initial impression was metabolic encephalopathy, UTI, chronic hepatitis B without delta agent, hypertension, hypokalemia. Cultures were obtained and she was given Rocephin and vancomycin. On February 09, she was described as agitated and combative by the hospitalist and she was given alprazolam among other medications including the antimicrobial therapy. She was given enoxaparin as well and the lorazepam. The impression still as metabolic encephalopathy, UTI, chronic hepatitis B, and hypokalemia. On February 10, the patient remained combative and agitative with minimal improvement with Ativan. Her temperature max was 99.9. She was a little bit hypoxemic at 93. Geodon was started. On February 11, the hypothesis of narcotic withdrawal was raised and she was described as sleeping. She was continued on Ativan p.r.n., Geodon, Rocephin. On February 13, she was described as more agitated and she was placed back on restraints. The son stated that her baseline usually patient is lucid and functional. Vancomycin was discontinued. At this time, she is described as awake and alert and responding to questions. No change in medication was recommended. On February 16, Dr. Sanchez took over and described the patient is feeling much better and not being confused any longer. She was transitioned to amoxicillin presumably for the E coli that was retrieved from the urine on February 08. The blood cultures were contaminated by a number of organisms, likely not true pathogens. The urine sample was a straight catheter sample with 50,000 to 75,000 CFUs of E coli per mL of urine. So patient was discharged on February 20 with a diagnosis of metabolic encephalopathy and multifactorial UTI. She also had C difficile antigen and toxin positive diarrhea probably hospital acquired and associated with antimicrobial therapy. She was discharged on Cymbalta, Ditropan, Entecavir, folic acid, Norvasc, Toprol, Wellbutrin, Xanax, fentanyl transdermal q.72 hours, Eliquis, Florastor, Lasix, gabapentin, Protonix. The patient was brought back about 3 weeks later after being at home for few days. She has remained in rehab between the hospital and the home discharge and after home discharge, she became more confused, agitated, and altered and there were no other symptoms that were described by the son, maybe a little bit of retching but no vomiting. No fever. No seizure activity. In the emergency room, she was given Haldol, Zyprexa, Ativan, and Rocephin. PAST MEDICAL HISTORY: Hypertension, breast cancer in remission, hepatitis B, depression. SOCIAL HISTORY: Never smoker. No alcoholic beverage use. No drug use. ALLERGIES: NONE. CURRENT MEDICATION LIST: Currently she is on: 1. Fentanyl. 2. Pepcid. 3. Tylenol. 4. Potassium chloride solution. All the home medications were discontinued. PHYSICAL EXAMINATION: VITAL SIGNS: She has been afebrile, T-max 99, O2 saturations ranging from 94 to 95. BP now 126/76, pulse 91. SKIN: Shows a peripheral IV access. She is voiding in the diaper. LYMPHATICS: No lymphadenopathy. GENERAL: The patient was somnolent and difficult to arouse. Apparently, she had been agitated earlier and had to be restrained. She has a sitter in the room with her. HEENT: The ocular movements appear conjugate. Pupils are 2 mm and reactive. Sclerae are white. Oral cavity is somewhat dry. She has numerous teeth in place with some decay. NECK: No jugular vein distention. Neck is quite supple. LUNGS: Symmetric. Clear breath sounds. HEART: S1 and S2. Regular rate without murmurs. No S3 or S4. ABDOMEN: Soft, not distended or tender. No ascites. No bladder distention. EXTREMITIES: No joint inflammatory activity. No edema. Pulses are 1+ in dorsalis pedis. Plantar responses are flexor. No clonus. NEUROLOGIC: She does not follow commands. At the end of the interview, she is somewhat woke up, but was very somnolent. She answered a few questions, but very monosyllabic answers and was not able to engage in the interview fully and fell asleep again. LABORATORY DATA: SARS-CoV was not detected on March 13. She had a previous negative SARS-CoV on February 08. White cell count is 9.5, hemoglobin 10.2, MCV 89, platelets 355, 72% neutrophils. Venous blood gas; pH 7.47, pCO2 38, PO2 62. This looks like an arterial blood gas. Chemistry; sodium 143, potassium 3.1, creatinine 0.82. Liver profile normal. Albumin 3.7. TSH 0.84. Urinalysis is completely normal and toxicology with benzodiazepine drugs detected. ASSESSMENT: 1. History of breast cancer in remission, on anastrozole. 2. Depression. 3. Polypharmacy. She is on chronic pain medications, not clear for which indication. There is a mention of some autoimmune disorder, but that is not confirmed in the full histories that I was able to find and then this history of recurring episodes of altered mental state. The last admission was for this extensive course of admission for altered mental state, which only improved at the end of the admission. She stayed for about 10 days and she only became ready for discharge starting at 3 to 4 days before her transfer to rehab. The son describes the patient is fully functional and oriented. Normal cognition before this new change. DISCUSSION: The differential diagnosis includes polypharmacy with drug-induced encephalopathy versus primary HEALTH CARE LEGAL ASSISTANT event, which would have to be an encephalitis or primary encephalopathy from either paraneoplastic process or rapidly progressive HEALTH CARE LEGAL ASSISTANT degenerative disorder, which is less likely. At this point, I would recommend a spinal fluid evaluation and an MRI of the brain to complete the workup. She may need sedation for both and we will consult anesthesia. It is very unlikely that the urinary tract findings in the last admission were responsible for the patient's mental state changes. This does not go along with the absence of leukocytosis, the negative blood cultures, the lack of fever, and the lack of prompt improvement following antimicrobial tx. Job ID: [id number] MTDD
[2020-03-15] MEDS ORDERED: Lorazepam 2 MG/ML VIAL SLOW IVP SCH (04:30)
[2020-03-15] MEDS: D5 1/2 NS w/20 mEq KCL 1,000 ML IV SCH (04:36)
[2020-03-15] MEDS: Apixaban 5 MG TAB PO SCH (09:17)
[2020-03-15] MEDS: Anastrozole 1 MG TAB PO SCH (09:17)
[2020-03-15] MEDS: Amlodipine 10 MG TAB PO SCH (09:17)
[2020-03-15] MEDS: Bupropion 150 MG XL TAB PO SCH (09:17)
[2020-03-15] MEDS: Folic Acid 1 MG TAB PO SCH (09:17)
[2020-03-15] MEDS: Oxybutynin 5 MG TAB PO SCH (09:17)
[2020-03-15] MEDS: Saccharomyces boulardii 250 MG CAP PO SCH (09:18)
[2020-03-15] MEDS: Famotidine/PF 20 mg/2ml Vial SLOW IVP SCH ×2 (09:26→22:25)
--- NOTE | 2020-03-15 13:40 | PDOC.HOSPP ---
- Subjective Encounter Date: 03/15/20 Encounter Time: 07:40 Subjective: awakens, responds to verbal stimuli is very anxious knows she is in the hospital, says knows names of her children, is not hungry now no nausea - Objective Vital Signs & Weight: Vital Signs (12 hours) Temp Pulse Resp BP Pulse Ox 03/15/20 08:00 95 03/15/20 07:02 98.4 F 104 H 18 145/87 H 95 03/15/20 04:00 98.5 F 97 20 162/84 H 94 L Weight Admit Weight 150 lb Weight 150 lb 0.04 oz I&O: 03/14/20 03/15/20 03/16/20 06:59 06:59 06:59 Intake Total 900 Balance 900 Result Diagrams: 03/14/20 06:03 03/14/20 06:03 Hospitalist ROS - Medication Medications: Active Medications Generic Name Dose Route Start Last Admin Trade Name Freq PRN Reason Stop Dose Admin Amlodipine Besylate 10 mg 03/15/20 09:00 03/15/20 09:17 Amlodipine 10 Mg Tab PO Not Given DAILY SARAH Anastrozole 1 mg 03/15/20 09:00 03/15/20 09:17 Anastrozole 1 Mg Tab PO Not Given DAILY SARAH Bupropion HCl 300 mg 03/15/20 09:00 03/15/20 09:17 Bupropion 150 Mg Xl Tab PO Not Given QAM SARAH Famotidine 20 mg 03/13/20 21:00 03/15/20 09:26 Famotidine/Pf 20 Mg/2ml Vial SLOW IVP 20 mg Q12HR SARAH Administration Fentanyl 25 mcg 03/13/20 18:00 03/13/20 18:37 Fentanyl 25 Mcg/Hour Patch TD 25 mcg Q3D SARAH Administration Fentanyl 12 mcg 03/13/20 18:00 03/13/20 18:37 Fentanyl 12 Mcg/Hour Patch TD 12 mcg Q3D SARAH Administration Fentanyl 25 mcg 03/14/20 03:49 03/14/20 03:55 Fentanyl 100 Mcg/2 Ml Vial SLOW IVP 25 mcg Q2H PRN Administration Pain Folic Acid 1 mg 03/14/20 21:00 03/15/20 09:17 Folic Acid 1 Mg Tab PO Not Given BID SARAH Potassium Chloride/Dextrose/Sod Cl 1,000 mls @ 75 mls/hr 03/13/20 14:15 03/15 04:36 D5 1/2 Ns W/20 Meq Kcl IV 1,000 mls .[id number] SARAH Administration Metoprolol Succinate 50 mg 03/15/20 09:00 03/15/20 09:17 Metoprolol Succinate Xl 50 Mg Tab PO Not Given DAILY SARAH Oxybutynin Chloride 5 mg 03/15/20 09:00 03/15/20 09:17 Oxybutynin 5 Mg Tab PO Not Given DAILY SARAH Pantoprazole Sodium 40 mg 03/15/20 09:00 03/15/20 09:17 Pantoprazole 40 Mg Tab PO Not Given DAILY SARAH Saccharomyces Boulardii 250 mg 03/15/20 09:00 03/15/20 09:18 Saccharomyces Boulardii 250 Mg Cap PO Not Given DAILY SARAH - Exam Eye: PERRL, anicteric sclera ENT: no oropharyngeal lesions, dry oral mucosa Neck: supple, no JVD Heart: RRR, no murmur Respiratory: no wheezes, no rales Gastrointestinal: soft, non-tender, non-distended, normal bowel sounds Extremities: no cyanosis, no edema Neurological: cranial nerve grossly intact, no focal deficits Hosp A/P (1) Metabolic encephalopathy Code(s): G93.41 - METABOLIC ENCEPHALOPATHY Status: Acute (2) Autoimmune disorder Code(s): D89.89 - OTH DISRD INVOLVING THE IMMUNE MECHANISM, NEC Status: Chronic (3) Chronic pain syndrome Code(s): G89.4 - CHRONIC PAIN SYNDROME Status: Chronic (4) History of breast cancer Code(s): Z85.3 - PERSONAL HISTORY OF MALIGNANT NEOPLASM OF BREAST Status: Chr onic (5) Chronic hepatitis B Code(s): B18.1 - CHRONIC VIRAL HEPATITIS B WITHOUT DELTA-AGENT Status: Chronic (6) Depression Code(s): F32.9 - MAJOR DEPRESSIVE DISORDER, SINGLE EPISODE, UNSPECIFIED Status: Chronic Qualifiers: Depression Type: unspecified Qualified Code(s): F32.9 - Major depressive disorder, single episode, unspecified (7) Hypercholesteremia Code(s): E78.0 - PURE HYPERCHOLESTEROLEMIA * DO NOT USE * Status: Chronic (8) Hypertension Code(s): I10 - ESSENTIAL (PRIMARY) HYPERTENSION Status: Chronic Qualifiers: Hypertension type: essential hypertension Qualified Code(s): I10 - Essential (primary) hypertension (9) Peripheral neuropathy Code(s): G62.9 - POLYNEUROPATHY, UNSPECIFIED Status: Chronic Qualifiers: Peripheral neuropathy type: idiopathic neuropathy, unspecified Qualified Code(s): G60.9 - Hereditary and idiopathic neuropathy, unspecified (10) Hypokalemia Code(s): E87.6 - HYPOKALEMIA Status: Acute - Plan off eliquis, hold LP for now (wednesday will be a safe date to do it), MRI brain with anesthesia can be done today. was off restraints for 2 hrs then woke up and got agitated, son was at bedside along with sitter on 03/14, since then has been in restraints no signs of meningismus clinically, pt is on entacavir for hep B, ?immunosuppressed to r/o encephalitis. no signs of gross infection, prelim blood and urine cs are -ve is on fentanyl tts, iv fluids start oral diet when she is more awake and oriented d/w son at bedside 03/14, couldn't reach him today x2 this am. prior echo in june showed ef of 45% with inferolat hypokinesis, has not had outpt f/u with cardio yet, no prior h/o cad hemostable for now, will f/u encephalopathy is slowly resolving, looks much better today than yesterday aspiration precautions with her being in restraints, may try to remove restraints again today and see for response.
[2020-03-15 14:00] LABS: #Basophils 0.1 thou/uL (0.0-0.2); #Eosinphils 0.4 thou/uL (0.0-0.7); #Lymphocytes 1.2 thou/uL (1.20-3.40); #Neutrophils 7.3 thou/uL (1.40-6.50); %Basophils 0.5 % (0.0-1.0); %Eosinophils 4.2 % (0.0-10.0); %Lymphocytes 12.1 % (21.0-51.0); %Neutrophils 73.2 % (42.0-75.0); Hemoglobin 10.9 g/dL (12.0-16.0); Mean Corpuscular HGB CONC 31.5 g/dL (32.0-36.0); Mean Corpuscular Hemoglobin 27.6 pg (27.0-31.0); Mean Corpuscular Volume 87.6 fL (78.0-98.0); Mean Platelet Volume 6.6 fL (7.4-10.4); Platelet Count 344 thou/uL (130-400); Red Blood Cell (RBC) Count 3.93 mill/uL (4.20-5.40)
[2020-03-15 14:06] LABS: INR-International Normal Ratio 1.1; PTT 26.7 sec (22.9-36.1); Prothrombin Time 14.6 sec (12.0-14.7)
[2020-03-15 14:35] LABS: Albumin 3.2 g/dL (3.4-4.8); Calcium 8.5 mg/dL (7.8-10.44); Chloride 109 mmol/L (98-107); Globulin 2.6 g/dL (2.4-3.5); Glucose 112 mg/dL (83-110); Potassium 3.1 mmol/L (3.5-5.1); Protein, Total 5.8 g/dL (6.0-8.3); Sodium 140 mmol/L (136-145)
[2020-03-15 14:36] LABS: Alkaline Phosphatase 61 U/L (40-110); Anion Gap 13 mmol/L (10-20); BUN (Urea Nitrogen) Less than 4 mg/dL (9.8-20.1); Bilirubin, Total 0.4 mg/dL (0.2-1.2); Calc. Creatinine Clearance 73 mL/min (70-130); Carbon Dioxide 21 mmol/L (23-31); Estimated GFR-MDRD 76
[2020-03-15 14:37] LABS: ALT (SGPT) 11 U/L (8-55); AST (SGOT) 17 U/L (5-34)
[2020-03-15] MEDS ORDERED: Magnevist 469MG/ML 20 ML VIAL ONE (15:25)
--- NOTE | 2020-03-15 16:52 | PRG ---
DATE OF SERVICE: 03/15/2020 SUBJECTIVE: Ms. Rodrigues is more alert, but she is still confused. She has difficulty finding words and has a lot of perseverance and disoriented. She thought she was in 1993 and is restrained right now. OBJECTIVE: VITAL SIGNS: Temperature is normal, blood pressure 140/80, heart rate 104, saturating 95% on room air. SKIN: Shows peripheral IV access. She is voiding in the diaper. GENERAL: She is certainly more alert today than yesterday. NEUROLOGIC: She will open her eyes and establishes eye contact. Recognized me as a doctor and she was disoriented though for time, but she knew she was in [facility]. Had a hard time remembering the events that led to her admission and could not give me basic information such as her occupation, difficulty finding words, paraphasic errors. HEAD: No headaches. LUNGS: No shortness of breath. ABDOMEN: No abdominal pain. : No genitourinary symptoms. JOINT: No joint symptoms. LABORATORY DATA: White cell count 10.0, hemoglobin 10.9, platelets 344. Creatinine 0.75. Liver profile normal. Albumin 3.2. Blood cultures negative. ASSESSMENT AND DISCUSSION: History of breast cancer in remission, depression, polypharmacy, recurring episodes of mental status change, having never recovered her baseline status since the last admission. At this point, we are pending the completion of the workup with CSF evaluation and MRI. Polypharmacy is definitely a possibility, but we need to rule out an intrinsic inflammatory/neoplastic process in the HEAT CURER. Job ID: [id number]
[2020-03-15] MEDS ORDERED: PROPOFOL 20 ML ONE (19:17)
[2020-03-15] MEDS ORDERED: Midazolam HCl 5 mg/5 ml Vial ONE (19:17)
[2020-03-15] MEDS ORDERED: Midazolam HCl 2 mg/2 ml Vial ONE (19:17)
[2020-03-15] MEDS ORDERED: Fentanyl 100 MCG/2 ML VIAL ONE ×2 (19:17→21:52)
--- NOTE | 2020-03-15 20:37 | MRI ---
Brain MRI with and without contrast: 03/15/2020 COMPARISON: 12/29/2014 HISTORY: Encephalopathy TECHNIQUE: Multiplanar multisequence MR imaging of the brain obtained with and without contrast FINDINGS: The gradient echo imaging demonstrates a prominent area of blooming artifact within the bas al ganglia on the left, a stable finding consistent with intracranial calcification. There is an adjacent developmental venous anomaly. Mild diffuse cerebral volume loss is present, similar when compared to the prior examination. No midline shift or mass effect is noted. No ventricular enlargement is evident on this exam. No evidence for acute infarction is noted on the axial gradient echo imaging. 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 No midline shift or mass effect is seen. No ventricular enlargement is evident on this examination. T here are a few scattered foci of increased T2 and FLAIR signal within the white matter suggesting mild small vessel disease. Arterial flow voids at the axial level of the skull base appear grossly unremarkable on the T2-weight ed imaging. The postcontrast imaging demonstrates no abnormal enhancement within the brain parenchyma. IMPRESSION: Chronic findings as detailed above. No acute findings are evident.
[2020-03-15] MEDS ORDERED: PACU-Morphine 4MG/ML VIAL SLOW IVP PRN (22:12)
[2020-03-15] MEDS ORDERED: Promethazine HCl 25 MG/ML VIAL IM PRN (22:12)
[2020-03-15] MEDS ORDERED: Promethazine HCl 25 MG/ML VIAL SLOW IVP PRN (22:12)
[2020-03-15] MEDS ORDERED: HYDROmorphone 2 MG/ML VIAL SLOW IVP PRN (22:12)
[2020-03-15] MEDS ORDERED: Ondansetron HCl/PF 4 MG/2 ML Vial IVP PRN (22:12)
[2020-03-15] MEDS ORDERED: Morphine Sulfate 2 MG/ML SYRINGE SLOW IVP PRN (22:12)
--- NOTE | 2020-03-15 22:28 | RAD ---
Lumbar puncture with fluoroscopic guidance: 03/15/2020 HISTORY: Altered mental status, encephalitis FINDINGS: Informed consent obtained prior to the procedure. [employer] imaging demonstrates posterior fusion hardware at the L4-5 level. Multilevel degenerative paulino e noted throughout the lumbar spine. The patient was placed on the fluoroscopic table in the oblique prone position. Skin overlying the jesus mbar spine was prepped and draped in normal sterile fashion. Skin overlying the L3 level was anesthetized with 1% buffered lidocaine. With intermittent fluoroscopic guidance, a 22-gauge spinal n eedle is advanced into the thecal sac and removal of the stylet yields clear cerebrospinal fluid. Opening pressure is approximately 9 mmHg. Approximately 7-8 cc of clear CSF was obtained and sent to the laboratory for assessment. Exposure data: 0.7 minutes of fluoroscopic time, 114.1 mcg/sq m IMPRESSION: Successful lumbar puncture with fluoroscopic guidance.
[2020-03-15 22:42] LABS: CSF, Glucose 58 mg/dl (40-70); CSF, Protein 42 mg/dL (15-40)
[2020-03-15 23:47] LABS: CSF Source CSF; Clarity Clear (Clear); Tube # 4
[2020-03-16] MEDS: Folic Acid 1 MG TAB PO SCH ×3 (02:01→22:02)
[2020-03-16] MEDS: D5 1/2 NS w/20 mEq KCL 1,000 ML IV SCH ×3 (05:31→23:20)
[2020-03-16] MEDS ORDERED: Cepastat Lozenges 1 LOZ PO PRN (08:20)
[2020-03-16] MEDS ORDERED: Loratadine 10 MG TAB PO PRN (08:20)
[2020-03-16] MEDS ORDERED: Senokot S 8.6-50 MG TAB PO PRN (08:20)
[2020-03-16] MEDS ORDERED: Loperamide HCl 2 MG CAP PO PRN (08:20)
[2020-03-16] MEDS ORDERED: Bisacodyl 5 MG TAB PO PRN (08:20)
[2020-03-16] MEDS ORDERED: Ondansetron PF 4 MG/2 ML Vial IVP PRN (08:20)
[2020-03-16] MEDS ORDERED: Diabetic Tussin 200 MG/10 ML UDCUP PO PRN (08:20)
[2020-03-16] MEDS ORDERED: Sodium Chloride 0.65% Nasal 44 ML BOT EA NARE PRN (08:20)
[2020-03-16] MEDS ORDERED: hydrALAZINE 20 MG/ML VIAL SLOW IVP PRN (08:20)
[2020-03-16] MEDS ORDERED: Calcium Carbonate 500 MG ChewTAB PO PRN (08:20)
[2020-03-16 09:18] LABS: #Eosinphils 0.4 thou/uL (0.0-0.7); #Monocytes 0.7 thou/uL (0.11-0.59); #Neutrophils 6.7 thou/uL (1.40-6.50); %Basophils 0.3 % (0.0-1.0); %Eosinophils 4.6 % (0.0-10.0); %Lymphocytes 10.9 % (21.0-51.0); %Monocytes 8.4 % (0.0-10.0); %Neutrophils 75.9 % (42.0-75.0); Hemoglobin 11.2 g/dL (12.0-16.0); Mean Corpuscular HGB CONC 32.5 g/dL (32.0-36.0); Mean Corpuscular Hemoglobin 28.5 pg (27.0-31.0); Mean Corpuscular Volume 87.5 fL (78.0-98.0); Mean Platelet Volume 6.8 fL (7.4-10.4); Platelet Count 314 thou/uL (130-400); RBC Distribution Width 13.1 % (11.5-14.5); Red Blood Cell (RBC) Count 3.95 mill/uL (4.20-5.40); White Blood Cell (WBC) Count 8.9 thou/uL (4.8-10.8)
[2020-03-16] MEDS: Saccharomyces boulardii 250 MG CAP PO SCH (09:24)
[2020-03-16] MEDS: Bupropion 150 MG XL TAB PO SCH (09:24)
[2020-03-16] MEDS: Famotidine/PF 20 mg/2ml Vial SLOW IVP SCH ×2 (09:24→22:02)
[2020-03-16] MEDS: Oxybutynin 5 MG TAB PO SCH (09:24)
[2020-03-16] MEDS: Amlodipine 10 MG TAB PO SCH (09:24)
[2020-03-16] MEDS: Anastrozole 1 MG TAB PO SCH (09:24)
[2020-03-16 09:36] LABS: Anion Gap 15 mmol/L (10-20); BUN (Urea Nitrogen) Less than 4 mg/dL (9.8-20.1); Calc. Creatinine Clearance 77 mL/min (70-130); Calcium 8.6 mg/dL (7.8-10.44); Carbon Dioxide 21 mmol/L (23-31); Chloride 108 mmol/L (98-107); Estimated GFR-MDRD 81; Glucose 109 mg/dL (83-110); Potassium 3.3 mmol/L (3.5-5.1); Sodium 141 mmol/L (136-145)
--- NOTE | 2020-03-16 11:31 | PDOC.HOSPP ---
- Subjective Encounter Date: 03/16/20 Encounter Time: 08:30 Subjective: Patient seen and examined bedside today, patient is responding to verbal stimuli, patient does have fasciculation with blepharospasm on the right eye, - Objective Vital Signs & Weight: Vital Signs (12 hours) Temp Pulse Resp BP Pulse Ox 03/16/20 11:02 99.2 F 111 H 18 143/86 H 95 03/16/20 09:24 105 H 03/16/20 08:00 95 03/16/20 07:03 98.7 F 105 H 18 130/82 95 03/16/20 04:00 98.1 F 88 18 135/79 95 03/16/20 00:00 97.9 F 89 20 154/83 H 96 Weight Admit Weight 150 lb Weight 150 lb 0.04 oz I&O: 03/15/20 03/16/20 03/17/20 06:59 06:59 06:59 Intake Total 900 Balance 900 Result Diagrams: 03/16/20 08:53 03/16/20 08:53 Radiology Reviewed by me: Yes Hospitalist ROS - Review of Systems ROS unobtainable: due to mental status - Medication Medications: Active Medications Generic Name Dose Route Start Last Admin Trade Name Freq PRN Reason Stop Dose Admin Amlodipine Besylate 10 mg 03/15/20 09:00 03/16/20 09:24 Amlodipine 10 Mg Tab PO 10 mg DAILY SARAH Administration Anastrozole 1 mg 03/15/20 09:00 03/16/20 09:24 Anastrozole 1 Mg Tab PO 1 mg DAILY SARAH Administration Bupropion HCl 300 mg 03/15/20 09:00 03/16/20 09:24 Bupropion 150 Mg Xl Tab PO 300 mg QAM SARHA Administration Famotidine 20 mg 03/13/20 21:00 03/16/20 09:24 Famotidine/Pf 20 Mg/2ml Vial SLOW IVP 20 mg Q12HR SARAH Administration Fentanyl 25 mcg 03/13/20 18:00 03/13/20 18:37 Fentanyl 25 Mcg/Hour Patch TD 25 mcg Q3D SARAH Administration Fentanyl 12 mcg 03/13/20 18:00 03/13/20 18:37 Fentanyl 12 Mcg/Hour Patch TD 12 mcg Q3D SARAH Administration Fentanyl 25 mcg 03/14/20 03:49 03/14/20 03:55 Fentanyl 100 Mcg/2 Ml Vial SLOW IVP 25 mcg Q2H PRN Administration Pain Folic Acid 1 mg 03/14/20 21:00 03/16/20 09:24 Folic Acid 1 Mg Tab PO 1 mg BID SARAH Administration Potassium Chloride/Dextrose/Sod Cl 1,000 mls @ 75 mls/hr 03/13/20 14:15 03/16/20 09:23 D5 1/2 Ns W/20 Meq Kcl IV 1,000 mls .[id number] SARAH Administration Metoprolol Succinate 50 mg 03/15/20 09:00 03/16/20 09:24 Metoprolol Succinate Xl 50 Mg Tab PO 50 mg DAILY SARAH Administration Ondansetron HCl 4 mg 03/16/20 08:20 03/16/20 09:51 Ondansetron Pf 4 Mg/2 Ml Vial IVP 4 mg Q6H PRN Administration Nausea/Vomiting Oxybutynin Chloride 5 mg 03/15/20 09:00 03/16/20 09:24 Oxybutynin 5 Mg Tab PO 5 mg DAILY SARAH Administration Pantoprazole Sodium 40 mg 03/15/20 09:00 03/16/20 09:24 Pantoprazole 40 Mg Tab PO 40 mg DAILY SARAH Administration Saccharomyces Boulardii 250 mg 03/15/20 09:00 03/16/20 09:24 Saccharomyces Boulardii 250 Mg Cap PO 250 mg DAILY SARAH Administration - Exam General Appearance: NAD, awake alert Eye: PERRL, anicteric sclera Eye - other findings: Blepharospasm and fasciculation in the right eye ENT: normocephalic atraumatic, no oropharyngeal lesions Neck: supple, symmetric, no JVD, no thyromegaly Heart: RRR, no murmur, no gallops, no rubs Respiratory: CTAB, no wheezes, no rales, no ronchi Gastrointestinal: soft, non-tender, non-distended, normal bowel sounds Extremities: no cyanosis, no clubbing, no edema Skin: normal turgor, no lesions Neurological: no new deficit Musculoskeletal: normal tone, normal strength, generalized weakness Psychiatric: normal affect, normal behavior Hosp A/P (1) Encephalopathy acute Code(s): G93.40 - ENCEPHALOPATHY, UNSPECIFIED Status: Acute (2) Autoimmune disorder Code(s): D89.89 - OTH DISRD INVOLVING THE IMMUNE MECHANISM, NEC Status: Chronic (3) Chronic pain syndrome Code(s): G89.4 - CHRONIC PAIN SYNDROME Status: Chronic (4) History of breast cancer Code(s): Z85.3 - PERSONAL HISTORY OF MALIGNANT NEOPLASM OF BREAST Status: Chronic (5) Chronic hepatitis B Code(s): B18.1 - CHRONIC VIRAL HEPATITIS B WITHOUT DELTA-AGENT Status: Chronic (6) Depression Code(s): F32.9 - MAJOR DEPRESSIVE DISORDER, SINGLE EPISODE, UNSPECIFIED Status: Chronic Qualifiers: Depression Type: unspecified Qualified Code(s): F32.9 - Major depressive disorder, single episode, unspecified (7) Hypercholesteremia Code(s): E78.0 - PURE HYPERCHOLESTEROLEMIA * DO NOT USE * Status: Chronic (8) Hypertension Code(s): I10 - ESSENTIAL (PRIMARY) HYPERTENSION Status: Chronic Qualifiers: Hypertension type: essential hypertension Qualified Code(s): I10 - Essential (primary) hypertension (9) Peripheral neuropathy Code(s): G62.9 - POLYNEUROPATHY, UNSPECIFIED Status: Chronic Qualifiers: Peripheral neuropathy type: idiopathic neuropathy, unspecified Qualified Code(s): G60.9 - Hereditary and idiopathic neuropathy, unspecified (10) Hypokalemia Code(s): E87.6 - HYPOKALEMIA Status: Acute - Plan old records reviewed/req, PT/OT, social media marketing specialist Patient has blepharospasm and fasciculation in her muscles of the right eyelid, doubt any medical therapy needed,? Outpatient Botox injection For altered mental status, so far all work-up is negative, CSF is unremarkable, MRI brain does not show any acute process, will consult neurology for their opinion I tried to reach out patient's family member but no response on phone, I have reviewed her medication and continue provide symptomatic and supportive care Replace potassium Discharge planning
--- NOTE | 2020-03-16 13:10 | CON ---
DATE OF CONSULTATION: 03/16/2020 CONSULTING PHYSICIAN: Hospitalist Service IMPRESSION: Transient encephalopathy, which appears to be improving, but appears to be some residual dementia. PLAN: Continue supportive measures. HISTORY OF PRESENT ILLNESS: Ms. Rodrigues is a 74-year-old white female who was brought in again by her son due to reported history that she was acting inappropriately. She apparently had been admitted not long ago for the urinary tract infection and similar symptoms. She came in once again and apparently was a bit agitated and had to be restrained. She has been through an extensive number of tests including CT and MRI of the brain, both of which were unremarkable. She had a lumbar puncture, which was acellular normal findings, otherwise. Her laboratory studies initially showed hypokalemia, which has since improved. The remainder of her lab has been unremarkable including an ammonia level. She had a chest x-ray, which was clear. She is COVID negative. She has settled down quite a bit according to the nurse. She has been much more cooperative and appropriate today. PAST HISTORY: Peripheral neuropathy, breast cancer, hepatitis, hypertension, hyperlipidemia, hypernatremia, atrial fibrillation, urinary tract infections, depression, rheumatoid arthritis. PAST SURGICAL: Eminectomy, lumpectomy. ALLERGIES: NONSTEROIDALS. SOCIAL HISTORY: No tobacco or alcohol use reported. FAMILY HISTORY: Unremarkable. REVIEW OF SYSTEMS: Ten-system review of systems is otherwise negative. PHYSICAL EXAMINATION: GENERAL: She is a well-nourished elderly lady, lying in bed, in no distress. VITAL SIGNS: Has been stable. She is afebrile. HEENT: Pupils are equal and reactive. Conjunctivae, clear. Oropharynx, clear. Cranium, normocephalic and atraumatic. NECK: Supple. No lymphadenopathy. SKIN: Clear. ABDOMEN: Soft and nontender. EXTREMITIES: Showed some minimal peripheral edema. No cyanosis present. NEUROLOGIC: She was alert and cooperative. She follows commands appropriately. Her speech was fluent and clear. She did not know her age, the month, the year, but did know she was in the hospital. Cranial nerves are intact throughout. Motor exam showed good engine monitor strength bilaterally. Sensation was intact to touch. No abnormal movements were seen. Gait was not tested. SUMMARY: This is an elderly lady who is no longer agitated, but still seems to have cognitive impairment, most likely suggestive of some dementia. Her workup has been completely unremarkable this time around. I do not see any further tests that need to be done. She can be discharged at her discretion. Job ID: [id number]
[2020-03-17 06:40] LABS: #Eosinphils 0.4 thou/uL (0.0-0.7); #Lymphocytes 0.9 thou/uL (1.20-3.40); #Monocytes 0.7 thou/uL (0.11-0.59); %Basophils 0.7 % (0.0-1.0); %Lymphocytes 13.5 % (21.0-51.0); %Monocytes 9.3 % (0.0-10.0); %Neutrophils 71.5 % (42.0-75.0); Hemoglobin 11.1 g/dL (12.0-16.0); Mean Corpuscular HGB CONC 32.5 g/dL (32.0-36.0); Mean Corpuscular Hemoglobin 28.1 pg (27.0-31.0); Mean Corpuscular Volume 86.6 fL (78.0-98.0); Mean Platelet Volume 7.3 fL (7.4-10.4); Platelet Count 266 thou/uL (130-400); RBC Distribution Width 13.1 % (11.5-14.5); Red Blood Cell (RBC) Count 3.94 mill/uL (4.20-5.40)
[2020-03-17 07:00] LABS: ALT (SGPT) 9 U/L (8-55); AST (SGOT) 14 U/L (5-34); Albumin 3.1 g/dL (3.4-4.8); Alkaline Phosphatase 62 U/L (40-110); Anion Gap 15 mmol/L (10-20); BUN (Urea Nitrogen) Less than 4 mg/dL (9.8-20.1); Bilirubin, Total 0.5 mg/dL (0.2-1.2); Calc. Creatinine Clearance 79 mL/min (70-130); Calcium 8.6 mg/dL (7.8-10.44); Carbon Dioxide 19 mmol/L (23-31); Chloride 110 mmol/L (98-107); Estimated GFR-MDRD 84; Globulin 2.6 g/dL (2.4-3.5); Glucose 109 mg/dL (83-110); Potassium 3.3 mmol/L (3.5-5.1); Protein, Total 5.7 g/dL (6.0-8.3); Sodium 141 mmol/L (136-145)
[2020-03-17] MEDS: Saccharomyces boulardii 250 MG CAP PO SCH ×2 (09:40→10:25)
[2020-03-17] MEDS: Oxybutynin 5 MG TAB PO SCH ×2 (09:40→10:27)
[2020-03-17] MEDS: Potassium Chloride 20 MEQ TAB PO SCH ×2 (09:40→10:26)
[2020-03-17] MEDS: Bupropion 150 MG XL TAB PO SCH ×2 (09:40→10:26)
[2020-03-17] MEDS: Anastrozole 1 MG TAB PO SCH ×2 (09:40→10:26)
[2020-03-17] MEDS: D5 1/2 NS w/20 mEq KCL 1,000 ML IV SCH (09:40)
[2020-03-17] MEDS: Folic Acid 1 MG TAB PO SCH ×3 (09:41→21:24)
[2020-03-17] MEDS: Famotidine/PF 20 mg/2ml Vial SLOW IVP SCH ×2 (09:41→21:24)
[2020-03-17] MEDS: Amlodipine 10 MG TAB PO SCH ×2 (09:41→10:26)
--- NOTE | 2020-03-17 11:36 | PDOC.HOSPP ---
- Subjective Encounter Date: 03/17/20 Encounter Time: 08:10 Subjective: Patient has very limited p.o. intake, no overnight event, patient is up to her baseline, - Objective Vital Signs & Weight: Vital Signs (12 hours) Temp Pulse Resp BP Pulse Ox 03/17/20 11:07 98.6 F 101 H 18 148/85 H 97 03/17/20 10:26 93 03/17/20 09:47 93 164/97 H 03/17/20 08:00 98.8 F 115 H 20 178/104 H 98 Weight Admit Weight 150 lb Weight 150 lb 0.04 oz Result Diagrams: 03/17/20 05:48 03/17/20 05:48 Hospitalist ROS - Review of Systems ROS unobtainable: due to mental status - Medication Medications: Active Medications Generic Name Dose Route Start Last Admin Trade Name Freq PRN Reason Stop Dose Admin Amlodipine Besylate 10 mg 03/15/20 09:00 03/17/20 10:26 Amlodipine 10 Mg Tab PO Not Given DAILY SARAH Anastrozole 1 mg 03/15/20 09:00 03/17/20 10:26 Anastrozole 1 Mg Tab PO Not Given DAILY SARAH Bupropion HCl 300 mg 03/15/20 09:00 03/17/20 10:26 Bupropion 150 Mg Xl Tab PO Not Given QAM SARAH Famotidine 20 mg 03/13/20 21:00 03/17/20 09:41 Famotidine/Pf 20 Mg/2ml Vial SLOW IVP 20 mg Q12HR SARAH Administration Fentanyl 25 mcg 03/13/20 18:00 03/16/20 18:06 Fentanyl 25 Mcg/Hour Patch TD 25 mcg Q3D SARAH Administration Fentanyl 12 mcg 03/13/20 18:00 03/16/20 18:07 Fentanyl 12 Mcg/Hour Patch TD 12 mcg Q3D SARAH Administration Fentanyl 25 mcg 03/14/20 03:49 03/14/20 03:55 Fentanyl 100 Mcg/2 Ml Vial SLOW IVP 25 mcg Q2H PRN Administration Pain Folic Acid 1 mg 03/14/20 21:00 03/17/20 10:27 Folic Acid 1 Mg Tab PO Not Given BID SARAH Potassium Chloride/Dextrose/Sod Cl 1,000 mls @ 75 mls/hr 03/13/20 14:15 03/17/20 09:40 D5 1/2 Ns W/20 Meq Kcl IV 1,000 mls .[id number] SARAH Administration Metoprolol Succinate 50 mg 03/15/20 09:00 03/17/20 10:27 Metoprolol Succinate Xl 50 Mg Tab PO Not Given DAILY SARAH Ondansetron HCl 4 mg 03/16/20 08:20 03/16/20 09:51 Ondansetron Pf 4 Mg/2 Ml Vial IVP 4 mg Q6H PRN Administration Nausea/Vomiting Oxybutynin Chloride 5 mg 03/15/20 09:00 03/17/20 10:27 Oxybutynin 5 Mg Tab PO Not Given DAILY SARAH Pantoprazole Sodium 40 mg 03/15/20 09:00 03/17/20 10:27 Pantoprazole 40 Mg Tab PO Not Given DAILY SARAH Potassium Chloride 40 meq 03/17/20 08:30 03/17/20 10:26 Potassium Chloride 20 Meq Tab PO 03/17/20 12:02 Not Given NOW [facility] Saccharomyces Boulardii 250 mg 03/15/20 09:00 03/17/20 10:25 Saccharomyces Boulardii 250 Mg Cap PO Not Given DAILY SARAH - Exam General Appearance: NAD, awake alert Eye: PERRL, anicteric sclera Eye - other findings: Right eye blepharospasm noted ENT: normocephalic atraumatic, no oropharyngeal lesions ENT - other findings: Tongue is red Neck: symmetric, no JVD, no thyromegaly Heart: RRR, no murmur, no gallops, no rubs Respiratory: no wheezes, no rales, no ronchi Gastrointestinal: soft, non-tender, non-distended, normal bowel sounds, no palpable masses Extremities: no clubbing, no edema Skin: normal turgor, no lesions Neurological: no new deficit Musculoskeletal: normal tone, normal strength, generalized weakness, diffuse muscle atrophy Psychiatric: normal affect, normal behavior Hosp A/P (1) Encephalopathy acute Code(s): G93.40 - ENCEPHALOPATHY, UNSPECIFIED Status: Acute (2) Autoimmune disorder Code(s): D89.89 - OTH DISRD INVOLVING THE IMMUNE MECHANISM, NEC Status: Chronic (3) Chronic pain syndrome Code(s): G89.4 - CHRONIC PAIN SYNDROME Status: Chronic (4) History of breast cancer Code(s): Z85.3 - PERSONAL HISTORY OF MALIGNANT NEOPLASM OF BREAST Status: Chronic (5) Chronic hepatitis B Code(s): B18.1 - CHRONIC VIRAL HEPATITIS B WITHOUT DELTA-AGENT Status: Chronic (6) Depression Code(s): F32.9 - MAJOR DEPRESSIVE DISORDER, SINGLE EPISODE, UNSPECIFIED Status: Chronic Qualifiers: Depression Type: unspecified Qualified Code(s): F32.9 - Major depressive disorder, single episode, unspecified (7) Hypercholesteremia Code(s): E78.0 - PURE HYPERCHOLESTEROLEMIA * DO NOT USE * Status: Chronic (8) Hypertension Code(s): I10 - ESSENTIAL (PRIMARY) HYPERTENSION Status: Chronic Qualifiers: Hypertension type: essential hypertension Qualified Code(s): I10 - Essential (primary) hypertension (9) Peripheral neuropathy Code(s): G62.9 - POLYNEUROPATHY, UNSPECIFIED Status: Chronic Qualifiers: Peripheral neuropathy type: idiopathic neuropathy, unspecified Qualified Code(s): G60.9 - Hereditary and idiopathic neuropathy, unspecified (10) Hypokalemia Code(s): E87.6 - HYPOKALEMIA Status: Acute - Plan old records reviewed/req, psychotherapist social worker Patient has very limited p.o. intake, will give her IV potassium chloride We will start with multivitamin with the IV fluid daily We will try nystatin swish and swallow for her soreness in mouth and sore tongue Neurology recommendation appreciated Try to reach out patient's son on phone to update about patient's condition but no response
[2020-03-17] MEDS ORDERED: Potassium Chloride 10 MEQ in Premix Bag 1 BAG IVPB SCH (13:15)
[2020-03-17] MEDS: Nystatin 500,000 UNITS/5 ML UDCUP SSW SCH ×3 (13:59→21:23)
[2020-03-17] MEDS: Linezolid 600 MG TAB PO SCH (22:33)
[2020-03-18] MEDS: D5 1/2 NS w/20 mEq KCL 1,000 ML IV SCH ×3 (01:15→19:41)
[2020-03-18] MEDS: Famotidine/PF 20 mg/2ml Vial SLOW IVP SCH ×2 (08:55→19:39)
[2020-03-18] MEDS: Anastrozole 1 MG TAB PO SCH (08:56)
[2020-03-18] MEDS: Folic Acid 1 MG TAB PO SCH ×2 (08:56→19:38)
[2020-03-18] MEDS: Amlodipine 10 MG TAB PO SCH (08:56)
[2020-03-18] MEDS: Linezolid 600 MG TAB PO SCH (08:56)
[2020-03-18] MEDS: Saccharomyces boulardii 250 MG CAP PO SCH (08:57)
[2020-03-18] MEDS: Nystatin 500,000 UNITS/5 ML UDCUP SSW SCH ×4 (08:57→19:39)
[2020-03-18] MEDS: Oxybutynin 5 MG TAB PO SCH (08:57)
[2020-03-18] MEDS ORDERED: Multivit, Adult Inj 10 ML VIAL IV SCH (09:00)
--- NOTE | 2020-03-18 11:45 | PDOC.HOSPP ---
- Subjective Encounter Date: 03/18/20 Encounter Time: 08:30 Subjective: Patient seen and examined bedside today, patient has very limited p.o. intake, patient is refusing to take pills, - Objective Vital Signs & Weight: Vital Signs (12 hours) Temp Pulse Resp BP Pulse Ox 03/18/20 08:56 103 H 03/18/20 08:00 99 03/18/20 07:38 98.9 F 18 157/64 H 99 Weight Admit Weight 150 lb Weight 150 lb 0.04 oz Result Diagrams: 03/17/20 05:48 03/17/20 05:48 Hospitalist ROS - Review of Systems ROS unobtainable: due to mental status - Medication Medications: Active Medications Generic Name Dose Route Start Last Admin Trade Name Freq PRN Reason Stop Dose Admin Amlodipine Besylate 10 mg 03/15/20 09:00 03/18/20 08:56 Amlodipine 10 Mg Tab PO Not Given DAILY SARAH Anastrozole 1 mg 03/15/20 09:00 03/18/20 08:56 Anastrozole 1 Mg Tab PO Not Given DAILY SARAH Famotidine 20 mg 03/13/20 21:00 03/18/20 08:55 Famotidine/Pf 20 Mg/2ml Vial SLOW IVP 20 mg Q12HR SARAH Administration Fentanyl 25 mcg 03/13/20 18:00 03/16/20 18:06 Fentanyl 25 Mcg/Hour Patch TD 25 mcg Q3D SARAH Administration Fentanyl 12 mcg 03/13/20 18:00 03/16/20 18:07 Fentanyl 12 Mcg/Hour Patch TD 12 mcg Q3D SARAH Administration Fentanyl 25 mcg 03/14/20 03:49 03/14/20 03:55 Fentanyl 100 Mcg/2 Ml Vial SLOW IVP 25 mcg Q2H PRN Administration Pain Folic Acid 1 mg 03/14/20 21:00 03/18/20 08:56 Folic Acid 1 Mg Tab PO Not Given BID SARAH Potassium Chloride/Dextrose/Sod Cl 1,000 mls @ 75 mls/hr 03/13/20 14:15 1 05/18/19 01:15 D5 1/2 Ns W/20 Meq Kcl IV 1,000 mls .[id number] SARAH Administration Linezolid 600 mg 03/17/20 21:00 03/18/20 08:56 Linezolid 600 Mg Tab PO Not Given Q12HR SARAH Metoprolol Succinate 50 mg 03/15/20 09:00 03/18/20 08:56 Metoprolol Succinate Xl 50 Mg Tab PO Not Given DAILY [facility] Nystatin 500,000 units 03/17/20 13:00 03/18/20 08:57 Nystatin 500,000 Units/5 Ml Udcup SSW Not Given QID [facility] Ondansetron HCl 4 mg 03/16/20 08:20 03/16/20 09:51 Ondansetron Pf 4 Mg/2 Ml Vial IVP 4 mg Q6H PRN Administration Nausea/Vomiting Oxybutynin Chloride 5 mg 03/15/20 09:00 03/18/20 08:57 Oxybutynin 5 Mg Tab PO Not Given DAILY [facility] Pantoprazole Sodium 40 mg 03/15/20 09:00 03/18/20 08:57 Pantoprazole 40 Mg Tab PO Not Given DAILY [facility] Saccharomyces Boulardii 250 mg 03/15/20 09:00 03/18/20 08:57 Saccharomyces Boulardii 250 Mg Cap PO Not Given DAILY SARAH - Exam General Appearance: NAD, awake alert Eye: PERRL, anicteric sclera Eye - other findings: Blepharospasm of the right eye ENT: normocephalic atraumatic, no oropharyngeal lesions Neck: supple, symmetric, no JVD, no thyromegaly Heart: RRR, no murmur, no gallops, no rubs Respiratory: no wheezes, no rales, no ronchi Gastrointestinal: soft, non-tender, non-distended, normal bowel sounds Extremities: no cyanosis, no clubbing Skin: normal turgor, no lesions Neurological: no new deficit Musculoskeletal: normal tone, normal strength Psychiatric: normal affect, normal behavior Hosp A/P (1) UTI (urinary tract infection) Status: Acute Qualifiers: Urinary tract infection type: acute cystitis Hematuria presence: without hematuria Qualified Code(s): N30.00 - Acute cystitis without hematuria (2) Encephalopathy acute Code(s): G93.40 - ENCEPHALOPATHY, UNSPECIFIED Status: Acute (3) Autoimmune disorder Code(s): D89.89 - OTH DISRD INVOLVING THE IMMUNE MECHANISM, NEC Status: Chronic (4) Chronic pain syndrome Code(s): G89.4 - CHRONIC PAIN SYNDROME Status: Chronic (5) History of breast cancer Code(s): Z85.3 - PERSONAL HISTORY OF MALIGNANT NEOPLASM OF BREAST Status: Chronic (6) Chronic hepatitis B Code(s): B18.1 - CHRONIC VIRAL HEPATITIS B WITHOUT DELTA-AGENT Status: Chronic (7) Depression Code(s): F32.9 - MAJOR DEPRESSIVE DISORDER, SINGLE EPISODE, UNSPECIFIED Status: Chronic Qualifiers: Depression Type: unspecified Qualified Code(s): F32.9 - Major depressive disorder, single episode, unspecified (8) Hypercholesteremia Code(s): E78.0 - PURE HYPERCHOLESTEROLEMIA * DO NOT USE * Status: Chronic (9) Hypertension Code(s): I10 - ESSENTIAL (PRIMARY) HYPERTENSION Status: Chronic Qualifiers: Hypertension type: essential hypertension Qualified Code(s): I10 - Essential (primary) hypertension (10) Peripheral neuropathy Code(s): G62.9 - POLYNEUROPATHY, UNSPECIFIED Status: Chronic Qualifiers: Peripheral neuropathy type: idiopathic neuropathy, unspecified Qualified C ode(s): G60.9 - Hereditary and idiopathic neuropathy, unspecified (11) Hypokalemia Code(s): E87.6 - HYPOKALEMIA Status: Acute - Plan old records reviewed/req, plan discussed w/ family, continue antibiotics, PT/OT, addiction social worker Give 1 dose of IV potassium chloride Because of poor p.o. intake will change Zyvox to IV Discussed with the patient's son about patient condition bedside Continue PT OT Unfortunately patient's poor p.o. intake and ongoing lethargy and weakness, discharge would be challenging, and continuously high risk for recurrent admission Hoping with IV Zyvox probably patient's mental status should improve
[2020-03-18] MEDS: Linezolid 600 MG in Premix Bag 1 BAG IVPB SCH ×2 (13:37→23:55)
[2020-03-18] MEDS: Multivitamins, Adult 10 ML in Sodium Chloride 0.9% 500 ML IV SCH (15:27)
--- NOTE | 2020-03-18 18:25 | PRG ---
DATE OF SERVICE: 03/18/2020 SUBJECTIVE: Ms. Rodrigues had her eyes closed, but she was easily arousable. She was sticking out her tongue, but she was able to communicate. She knew she was in [facility] and the date, but still kind of drowsy. Did not have any headaches. No shortness of breath or cough. No abdominal pain. Voiding without difficulty in the diaper. OBJECTIVE: VITAL SIGNS: Temperature has been normal throughout, slightly tachycardic, satting 99 on room air. GENERAL: Awake, alert and oriented to self, place, and time. LUNGS: Symmetric. Clear breath sounds. HEART: S1 and S2, regular rate. ABDOMEN: Soft. Not distended or tender. No bladder distention. LABORATORY DATA: White cell count 7.0, hemoglobin 11, and platelets 266. Sodium 141, creatinine 0.69. Liver profile normal. Albumin 3.1, and the CSF showed only actually 3 rbc's and 0 nucleated cells that is 0 wbc's. Total protein was slightly high at 42, which is minimal. Glucose was normal, and HSV DNA PCR was negative. SARS-CoV RT-PCR was negative, and MRI showed chronic findings. No acute findings. She had a positive Enterococcus from urine straight catheter. Blood cultures negative. The urinalysis was completely normal. ASSESSMENT AND DISCUSSION: History of breast cancer in remission, depression, polypharmacy, mental status changes, recurrent without recovery of baseline status since admission. The CSF evaluation and the MRI were not remarkable. HSV was negative. The VRE is unlikely to be the culprit here, and the patient has no inflammatory changes in the urinalysis and no symptoms, so I think this is just an innocent bystander, and I would not recommend treatment for it. They remind that her mental state improved during this admission without antimicrobial therapy, also in the previous admissions the same association was made and proved not to be correct. It is not clear why she has had these changes, if it is related to the medication list that she takes at home. Dr. Sequeira has evaluated the patient two days ago, and he thinks that she might have some residual dementia with superimposed encephalopathy. Job ID: [id number]
[2020-03-19] MEDS: Famotidine/PF 20 mg/2ml Vial SLOW IVP SCH (09:01)
[2020-03-19] MEDS: Multivitamins, Adult 10 ML in Sodium Chloride 0.9% 500 ML IV SCH (09:01)
[2020-03-19] MEDS: Anastrozole 1 MG TAB PO SCH (09:14)
[2020-03-19] MEDS: Amlodipine 10 MG TAB PO SCH (09:14)
[2020-03-19] MEDS: Folic Acid 1 MG TAB PO SCH (09:14)
[2020-03-19] MEDS: Oxybutynin 5 MG TAB PO SCH (09:15)
[2020-03-19] MEDS: Saccharomyces boulardii 250 MG CAP PO SCH (09:15)
[2020-03-19] MEDS: Nystatin 500,000 UNITS/5 ML UDCUP SSW SCH (09:15)
--- NOTE | 2020-03-19 11:19 | PDOC.DS.DS ---
Provider - Provider Date of Admission: 03/13/20 14:05 Date of Discharge: 03/19/20 Admitting Provider: Tomasz Pascal MD Consultations: Infectious Disease, Neurology Primary Care Physician: Jaspal Kaur MD Course - Hospital Course Hospital Course: 74-year-old female who has multiple medical problems was admitted in the hospital on March 13, 2020 for altered mental status. She was recently in the hospital and at that time she was treated for UTI and that was attributed for her altered mental status, after discharge patient did not improve, she was more confused agitated and altered and that is why she was brought to ER. During this admission we did lumbar puncture and lumbar puncture was normal, CT brain was also negative, chest x-ray was normal, patient also had MRI which did not show any acute process, we also consulted neurology and neurology was also recommended only supportive measures, during this admission her urine culture grew VRE and so we treated her with Zyvox but Dr. Case was not thinking that this patient has any real UTI, this could be colonization, for benefit of doubt we are prescribing 5 more days of Zyvox therapy upon discharge, Patient son wanted her to go home with home health, at this point no plan for any further senior living home or rehabilitation placement, this patient is at high risk for recurrent admission because of her ongoing altered mental status, we are still suspecting polypharmacy for her altered mental status and we advised patient's family member to make appointment with primary care physician to further adjust medication if needed. Resuscitation Status: 03/13/20 13:44 Resuscitation Status Routine Resuscitation Status: FULL: Full Resuscitation - Labs Lab Results: 03/17/20 05:48 03/17/20 05:48 Microbiology - Entire Visit 03/13/20 09:27 Venous blood - Left Arm Blood Culture - Final NO GROWTH IN 5 DAYS 03/13/20 09:33 Venous blood - Right Arm Blood Culture - Final NO GROWTH IN 5 DAYS 03/13/20 09:20 Urine Straight Catheter Urine Culture - Final Vanc-resistant Enterococcus - Physical Exam Vitals: Vital Signs (12 hours) Temp Pulse Resp BP Pulse Ox 03/19/20 09:00 96 03/19/20 08:06 98.5 F 92 18 175/79 H 96 Weight Admit Weight 150 lb Weight 150 lb 0.04 oz Physical Exam: The patient was seen and examined on the day of discharge. General patient is currently alert awake no acute distress Lungs clear to auscultation without any rhonchi or rales Cardiac S1-S2 regular no murmur Abdomen soft benign, Extremity no edema Neurologically nonfocal examination Problem - Problem (1) UTI (urinary tract infection) Status: Acute Qualifiers: Urinary tract infection type: acute cystitis Hematuria presence: without hematuria Qualified Code(s): N30.00 - Acute cystitis without hematuria (2) Encephalopathy acute Code(s): G93.40 - ENCEPHALOPATHY, UNSPECIFIED Status: Acute (3) Autoimmune disorder Code(s): D89.89 - OTH DISRD INVOLVING THE IMMUNE MECHANISM, NEC Status: Chronic (4) Chronic pain syndrome Code(s): G89.4 - CHRONIC PAIN SYNDROME Status: Chronic (5) History of breast cancer Code(s): Z85.3 - PERSONAL HISTORY OF MALIGNANT NEOPLASM OF BREAST Status: Chronic (6) Chronic hepatitis B Code(s): B18.1 - CHRONIC VIRAL HEPATITIS B WITHOUT DELTA-AGENT Status: Chronic (7) Depression Code(s): F32.9 - MAJOR DEPRESSIVE DISORDER, SINGLE EPISODE, UNSPECIFIED Status: Chronic Qualifiers: Depression Type: unspecified Qualified Code(s): F32.9 - Major depressive disorder, single episode, unspecified (8) Hypercholesteremia Code(s): E78.0 - PURE HYPERCHOLESTEROLEMIA * DO NOT USE * Status: Chronic (9) Hypertension Code(s): I10 - ESSENTIAL (PRIMARY) HYPERTENSION Status: Chronic Qualifiers: Hypertension type: essential hypertension Qualified Code(s): I10 - Essential (primary) hypertension (10) Peripheral neuropathy Code(s): G62.9 - POLYNEUROPATHY, UNSPECIFIED Status: Chronic Qualifiers: Peripheral neuropathy type: idiopathic neuropathy, unspecified Qualified Code(s): G60.9 - Hereditary and idiopathic neuropathy, unspecified (11) Hypokalemia Code(s): E87.6 - HYPOKALEMIA Status: Acute Plan - Discharge Medications Prescriptions: Saccharomyces boulardii [Florastor] 250 mg PO DAILY #5 cap Linezolid 600 mg PO BID #10 tablet Home Medications: Medication Instructions Recorded Confirmed Type Anastrozole [Arimidex] 1 mg PO DAILY 09/25/15 03/13/20 History DULoxetine [Cymbalta] 120 mg PO DAILY 09/25/15 03/13/20 History Folic Acid [Folvite] 1 mg PO BID 09/25/15 03/13/20 History Pantoprazole [Protonix] 40 mg PO DAILY #0 tab 10/25/15 03/13/20 Rx ALPRAZolam [Xanax] 0.5 mg PO HS PRN 07/19/18 03/13/20 History Entecavir 0.5 mg PO DAILY 07/19/18 03/13/20 History Apixaban [Eliquis] 5 mg PO BID #60 tab 07/20/18 03/13/20 Rx Amlodipine [Norvasc] 10 mg PO DAILY 02/09/20 03/13/20 History Metoprolol Succinate [Toprol XL] 50 mg PO DAILY 02/09/20 03/13/20 History Oxybutynin [Ditropan] 5 mg PO DAILY 02/09/20 03/13/20 History Furosemide 40 mg PO DAILY #0 02/21/20 03/13/20 Rx Gabapentin [Neurontin] 600 mg PO TID cap 02/21/20 03/13/20 Rx fentaNYL [Duragesic] 37.5 mcg TD Q3D 03/13/20 03/13/20 History Linezolid 600 mg PO BID #10 tablet 03/19/20 Rx Saccharomyces boulardii [Florastor] 250 mg PO DAILY #5 cap 03/19/20 Rx buPROPion HCl [Wellbutrin XL] 300 mg PO QAM #0 03/19/20 03/13/20 Rx Allergies: NSAIDS (Non-Steroidal Anti-Inflamma Allergy (Verified 02/09/20 06:54) - Discharge Instructions Activity:: Activity as Tolerated Nourishment:: Heart Healthy Diet Therapies:: Occupational Therapy, Physical Therapy Equipment/Supplies:: Not Applicable IV Therapy:: Not Applicable - Follow up Plan Referrals: [facility] [Outside] Jaspal Kaur MD [Primary Care Provider] - 7 Days Umair Sequeira MD [Active] - ( DIRECTED) Disposition: HOME HEALTH Quality - Care Measures CORE MEASURES:: N/A
[2020-03-19 12:44] VITALS: BP 175/80; TEMP 98.1
[2020-03-19] MEDS: Linezolid 600 MG in Premix Bag 1 BAG IVPB SCH (12:45)
--- NOTE | 2020-03-21 04:26 | PQF ---
Dear : Amado Clemons Date 03/21/2020 Please exercise your independent, professional judgment in responding to the clarification form. Clinical indicators are provided on the bottom of this form for your review Can you please further clarify the etiology of Metabolic encephalopathy? Please check appropriate box(es): [ x ] Adverse effect of Polypharmacy [ ] Overdose of Polypharmacy [ x ] UTI [ ] Other diagnosis please specify [ ] Unable to determine Physician Signature: Date/Time: For continuity of documentation, please document condition throughout progress notes and discharge summary. Thank You. To be completed by CDI/Coding staff for physician review: Present Clinical Indicators - Signs / Symptoms / Labs Results and Location in Medical Record [ x ] altered metal status, encephalopathy, agitation H and P pg.1 [ x ] She has felt to have a UTI at that time H and P pg.1 [ x ] Confused, agitated and altered H and P pg.1 [ x ] Metabolic encephalopathy H and P pg.4 [ x ] Patient may be having some opioid withdrawal H and P pg.4 [ x ] Polypharmacy. She is on chronic pain medications, not clear for which indication Consult pg.3 Dr. Case [ x ] Polypharmacy with drug induced encephalopathy Consult pg.3 Dr. Case [ x ] Transient encephalopathy Consult pg.1 03/16 [ x ] Still suspecting polypharmacy for her altered metal status DS pg.1 Present Risk Factors Results and Location in Medical Record [ x ] 74 years old H and P pg.1 [ x ] Depression H and P pg.5 [ x ] HTN H and P pg.5 [ x ] AFIB H and P pg.5 [ x ] Polypharmacy Consult pg.2 Dr. Case [ x ] UTI H and P pg.1 [ x ] Hypokalemia HP 03/13 Present Treatments Results and Location in Medical Record [ x ] IV Fluids MAR [ x ] Infectious Consult Dr. Case 03/14 [ x ] Brain MRI 03/15 Brain MRI 03/15 [ x ] Neurology Consult Dr. Sequeira 03/16 [ x ] Amoxicillin 500mg PO MAR [ x ] Vancomycin 125mg PO MAR [ x ] Monitoring and replacement of electrolytes HP 03/13 CDS/[employer] Tender Signature:Daren Jerry Phone #: [phone] Date/Time: 03/21/2020 This is a permanent part of the Medical Record [facility]
== END 2020-03-19 13:07 | disposition home health service (06) | DRG 689 ==
LOC: ERS 09:12 → T4-A 14:05
PROVIDERS: ADMIT Internal Medicine; ATTEND Internal Medicine
PROC: 009U3ZX Drainage of Spinal Canal, Percutaneous Approach, Diagnostic (ICD-10-PCS; principal; 2020-03-15)
PROC: B01BZZZ Fluoroscopy of Spinal Cord (ICD-10-PCS; 2020-03-15)
DX: N30.00 Acute cystitis without hematuria (principal); G92 Toxic encephalopathy; B18.1 Chronic viral hepatitis B without delta-agent; T50.915A Adverse effect of multiple unspecified drugs, medicaments and biological substances, initial encounter; Z20.828 Contact with and (suspected) exposure to other viral communicable diseases; D89.89 Other specified disorders involving the immune mechanism, not elsewhere classified; G89.4 Chronic pain syndrome; F32.9 Major depressive disorder, single episode, unspecified; E78.00 Pure hypercholesterolemia, unspecified; I10 Essential (primary) hypertension; E87.6 Hypokalemia; I48.91 Unspecified atrial fibrillation; G24.5 Blepharospasm; R25.3 Fasciculation; G60.9 Hereditary and idiopathic neuropathy, unspecified; M06.9 Rheumatoid arthritis, unspecified; Z85.3 Personal history of malignant neoplasm of breast; Z88.6 Allergy status to analgesic agent; Z79.01 Long term (current) use of anticoagulants; Z79.899 Other long term (current) drug therapy
CPT/HCPCS: 36415; 51701; 62270; 70450; 70553; 71045; 80048; 80053; 80306; 81003; 82140; 82330; 82803; 82945; 83605; 83690; 84157; 84443; 84484; 85025; 85610; 85730; 87040; 87077; 87086; 87186; 87529; 89051; 93005; 94760; 96365; 96372; 96374; 96375; 96376; A9579; J0696; J1200; J1630; J2020; J2060; J2250; J2358; J2405; J2704; J3010; J3480; J7030; J7050; S0028; U0002

== ENCOUNTER 2020-07-03 13:31 | Outpatient (CLI) | payer MEDICARE | END 2020-07-03 13:32 | disposition home or self-care (01) | LOC: BICMAMMO 13:31 | PROVIDERS: ATTEND Family Medicine | DX: Z12.31 Encounter for screening mammogram for malignant neoplasm of breast (principal); Z13.820 Encounter for screening for osteoporosis; Z78.0 Asymptomatic menopausal state; M81.0 Age-related osteoporosis without current pathological fracture; Z80.3 Family history of malignant neoplasm of breast; Z85.3 Personal history of malignant neoplasm of breast | CPT/HCPCS: 77063; 77067; 77080 ==

== ENCOUNTER 2021-05-12 15:49 | Outpatient (CLI) | payer MEDICARE | END 2021-05-12 15:50 | disposition home or self-care (01) | LOC: BICRAD 15:49 | PROVIDERS: ATTEND Family Medicine | DX: M25.512 Pain in left shoulder (principal) ==

== ENCOUNTER 2021-06-06 10:52 | Emergency (ER) | payer OTHER, MEDICARE ==
[2021-06-06] MEDS ORDERED: HYDROcodone/Acetaminophen 10/325 mg Tablet ONE (12:09)
== END 2021-06-06 14:05 | disposition home or self-care (01) ==
LOC: ERS 10:52
DX: S09.90XA Unspecified injury of head, initial encounter (principal); M25.561 Pain in right knee; M06.9 Rheumatoid arthritis, unspecified; W01.198A Fall on same level from slipping, tripping and stumbling with subsequent striking against other object, initial encounter
CPT/HCPCS: 70450

== ENCOUNTER 2021-06-17 06:03 | Inpatient (IN) | payer MEDICARE ==
[2021-06-17 06:55] LABS: #Eosinphils 0.1 thou/uL (0.0-0.7); #Lymphocytes 0.8 thou/uL (1.20-3.40); #Monocytes 0.6 thou/uL (0.11-0.59); #Neutrophils 7.6 thou/uL (1.40-6.50); %Basophils 0.3 % (0.0-1.0); %Eosinophils 0.6 % (0.0-10.0); %Lymphocytes 8.4 % (21.0-51.0); %Monocytes 6.8 % (0.0-10.0); %Neutrophils 83.9 % (42.0-75.0); Hemoglobin 9.7 g/dL (12.0-16.0); Mean Corpuscular HGB CONC 31.5 g/dL (32.0-36.0); Mean Corpuscular Hemoglobin 28.8 pg (27.0-31.0); Mean Corpuscular Volume 91.3 fL (78.0-98.0); Mean Platelet Volume 6.9 fL (7.4-10.4); Platelet Count 318 thou/uL (130-400); RBC Distribution Width 14.4 % (11.5-14.5); Red Blood Cell (RBC) Count 3.38 mill/uL (4.20-5.40)
[2021-06-17 07:16] LABS: ALT (SGPT) 16 U/L (8-55); AST (SGOT) 15 U/L (5-34); Albumin 3.5 g/dL (3.4-4.8); Alkaline Phosphatase 110 U/L (40-110); Anion Gap 15 mmol/L (10-20); BUN (Urea Nitrogen) 10 mg/dL (9.8-20.1); Bilirubin, Total 0.5 mg/dL (0.2-1.2); Calc. Creatinine Clearance 0 mL/min (70-130); Calcium 9.2 mg/dL (7.8-10.44); Carbon Dioxide 20 mmol/L (23-31); Chloride 109 mmol/L (98-107); Globulin 2.4 g/dL (2.4-3.5); Glucose 166 mg/dL (83-110); Potassium 3.1 mmol/L (3.5-5.1); Protein, Total 5.9 g/dL (5.8-8.1); Sodium 141 mmol/L (136-145)
[2021-06-17] MEDS ORDERED: Haloperidol Lactate 5 MG/ML VIAL ONE ×3 (07:47→09:56)
[2021-06-17] MEDS ORDERED: cefTRIAXone\\ROCEPHIN 2 GM VIAL ONE (08:00)
[2021-06-17 08:05] LABS: Bilirubin Negative (Negative); Blood, Urine Negative (Negative); Clarity Clear (Clear); Glucose, Urine (Dipstick) Normal (Negative); Ketone, Urine 20 mg/dL (Negative); Leukocyte Negative Leu/uL (Negative); Nitrite Negative (Negative); Protein, Urine (Dipstick) 20 mg/dL (Neg-Trace); Specific Gravity, Urine 1.011 (1.002-1.036); Urobilinogen Normal mg/dL (Less than 2)
[2021-06-17] MEDS ORDERED: Vancomycin 1 GM/200 ML BAG ONE (08:23)
[2021-06-17 08:33] LABS: Actual Bicarbonate (HCO3v) 21 mEq/L (22-28); Analyzer IN Cardio ER; Chloride (VBG) 108 mmol/L (98-106); Hemoglobin (Hb) 10.7 g/dL (11.7-16.1); Potassium (VBG) 3.24 mmol/L (3.70-5.30); Sodium 138.1 mmol/L (133-146); pH (venous) 7.55 (7.32-7.43)
[2021-06-17 08:38] LABS: Acetaminophen Less than 6.0 mcg/mL (10.0-30.0); Alcohol Less than 10 mg/dL (Less than 10); Salicylate Less than 8.0 mg/dL (15.0-30.0)
[2021-06-17] MEDS ORDERED: Potassium Chloride 20 MEQ/100 ML PREMIX BAG ONE (08:54)
[2021-06-17] MEDS ORDERED: Magnesium 2 GM/50 ML BAG (IN WATER) ONE (08:54)
[2021-06-17 09:20] LABS: Amphetamine Not Detected (NotDetected); Barbiturates Screen Not Detected (NotDetected); Benzodiazepine Screen Not Detected (NotDetected); Cocaine Metabolite Screen Not Detected (NotDetected); Methadone Not Detected (NotDetected); Methamphetamine Not Detected (NotDetected); Opiate Screen Not Detected (NotDetected); Oxycodone Screen Not Detected (NotDetected); Phencyclidine (PCP) Not Detected (NotDetected); THC/Cannabinoid Screen Not Detected (NotDetected); Tricyclic Screen Not Detected (NotDetected)
[2021-06-17] MEDS ORDERED: Acetaminophen 325 MG TAB PO PRN (09:45)
[2021-06-17] MEDS ORDERED: Ondansetron PF 4 MG/2 ML Vial IVP PRN (09:45)
[2021-06-17 17:40] VITALS: BMI 22.6
[2021-06-17 23:58] LABS: SARS-CoV-2 PCR by NAA Not Detected (NotDetected)
[2021-06-18] MEDS ORDERED: Metoprolol Tartrate 5 MG/5 ML VIAL IVP SCH ×3 (00:56→23:07)
[2021-06-18 04:25] LABS: #Eosinphils 0.1 thou/uL (0.0-0.7); #Lymphocytes 1.1 thou/uL (1.20-3.40); #Monocytes 0.9 thou/uL (0.11-0.59); #Neutrophils 9.1 thou/uL (1.40-6.50); %Basophils 0.3 % (0.0-1.0); %Eosinophils 0.5 % (0.0-10.0); %Monocytes 8.4 % (0.0-10.0); %Neutrophils 80.8 % (42.0-75.0); Hemoglobin 9.1 g/dL (12.0-16.0); Mean Corpuscular HGB CONC 32.2 g/dL (32.0-36.0); Mean Corpuscular Hemoglobin 28.9 pg (27.0-31.0); Mean Corpuscular Volume 89.7 fL (78.0-98.0); Mean Platelet Volume 6.8 fL (7.4-10.4); Platelet Count 329 thou/uL (130-400); RBC Distribution Width 14.5 % (11.5-14.5); Red Blood Cell (RBC) Count 3.16 mill/uL (4.20-5.40); White Blood Cell (WBC) Count 11.3 thou/uL (4.8-10.8)
[2021-06-18 04:41] LABS: ALT (SGPT) 16 U/L (8-55); AST (SGOT) 19 U/L (5-34); Albumin 3.8 g/dL (3.4-4.8); Alkaline Phosphatase 124 U/L (40-110); Anion Gap 16 mmol/L (10-20); BUN (Urea Nitrogen) 6 mg/dL (9.8-20.1); Bilirubin, Total 0.5 mg/dL (0.2-1.2); Calc. Creatinine Clearance 57 mL/min (70-130); Calcium 9.4 mg/dL (7.8-10.44); Carbon Dioxide 20 mmol/L (23-31); Chloride 111 mmol/L (98-107); Globulin 2.4 g/dL (2.4-3.5); Glucose 129 mg/dL (83-110); Magnesium 2.5 mg/dL (1.6-2.6); Potassium 3.4 mmol/L (3.5-5.1); Protein, Total 6.2 g/dL (5.8-8.1); Sodium 144 mmol/L (136-145)
[2021-06-18] MEDS ORDERED: Sodium Chloride 0.9% 250 ML IV SCH (04:45)
[2021-06-18] MEDS ORDERED: Potassium Chloride 20 MEQ in Premix Bag 1 BAG IVPB SCH (07:00)
[2021-06-18] MEDS ORDERED: Potassium Chloride 10 MEQ in Premix Bag 1 BAG IVPB SCH (07:00)
[2021-06-18] MEDS ORDERED: Labetalol HCl 100 MG/20 ML VIAL SLOW IVP SCH (07:15)
[2021-06-18 11:50] LABS: Iron 37 ug/dL (50-170); Iron Binding Capacity, Total 303 mcg/dL (265-497)
[2021-06-18] MEDS: Dextrose 5 %-0.45 % NaCl 1,000 ML IV SCH (16:55)
[2021-06-18 21:43] LABS: Magnesium 2.2 mg/dL (1.6-2.6)
[2021-06-18] MEDS: Potassium Chloride 20 MEQ in Premix Bag 1 BAG IVPB SCH (22:16)
[2021-06-19] MEDS: Potassium Chloride 20 MEQ in Premix Bag 1 BAG IVPB SCH (00:51)
[2021-06-19 04:30] LABS: #Eosinphils 0.1 thou/uL (0.0-0.7); #Neutrophils 10.1 thou/uL (1.40-6.50); %Basophils 0.4 % (0.0-1.0); %Eosinophils 0.6 % (0.0-10.0); %Lymphocytes 7.9 % (21.0-51.0); %Monocytes 8.2 % (0.0-10.0); %Neutrophils 82.9 % (42.0-75.0); Hemoglobin 10.2 g/dL (12.0-16.0); Mean Corpuscular HGB CONC 32.1 g/dL (32.0-36.0); Mean Corpuscular Hemoglobin 28.7 pg (27.0-31.0); Mean Corpuscular Volume 89.4 fL (78.0-98.0); Mean Platelet Volume 6.9 fL (7.4-10.4); Platelet Count 317 thou/uL (130-400); RBC Distribution Width 14.7 % (11.5-14.5); Red Blood Cell (RBC) Count 3.54 mill/uL (4.20-5.40); White Blood Cell (WBC) Count 12.2 thou/uL (4.8-10.8)
[2021-06-19 04:56] LABS: Anion Gap 14 mmol/L (10-20); BUN (Urea Nitrogen) 9 mg/dL (9.8-20.1); Calc. Creatinine Clearance 49 mL/min (70-130); Calcium 8.9 mg/dL (7.8-10.44); Carbon Dioxide 22 mmol/L (23-31); Chloride 113 mmol/L (98-107); Glucose 144 mg/dL (83-110); Potassium 3.4 mmol/L (3.5-5.1); Sodium 146 mmol/L (136-145)
[2021-06-19] MEDS: Metoprolol Tartrate 5 MG/5 ML VIAL IVP PRN (11:04)
[2021-06-19] MEDS: Dextrose 5 %-0.45 % NaCl 1,000 ML IV SCH ×2 (11:18→18:44)
[2021-06-19] MEDS ORDERED: Diltiazem 125 MG in Sodium Chloride 0.9% 100 ML IVPB SCH ×2 (15:00→15:01)
[2021-06-19 15:21] LABS: #Basophils 0.1 thou/uL (0.0-0.2); #Eosinphils 0.1 thou/uL (0.0-0.7); #Lymphocytes 1.9 thou/uL (1.20-3.40); #Monocytes 1.3 thou/uL (0.11-0.59); %Basophils 0.5 % (0.0-1.0); %Eosinophils 0.5 % (0.0-10.0); %Lymphocytes 12.4 % (21.0-51.0); %Monocytes 8.5 % (0.0-10.0); %Neutrophils 78.1 % (42.0-75.0); Hemoglobin 11.7 g/dL (12.0-16.0); Mean Corpuscular HGB CONC 30.8 g/dL (32.0-36.0); Mean Corpuscular Hemoglobin 28.1 pg (27.0-31.0); Mean Corpuscular Volume 91.3 fL (78.0-98.0); Mean Platelet Volume 7.1 fL (7.4-10.4); Platelet Count 357 thou/uL (130-400); RBC Distribution Width 14.9 % (11.5-14.5); Red Blood Cell (RBC) Count 4.17 mill/uL (4.20-5.40); White Blood Cell (WBC) Count 15.4 thou/uL (4.8-10.8)
[2021-06-19 15:28] LABS: Anion Gap 14 mmol/L (10-20); BUN (Urea Nitrogen) 14 mg/dL (9.8-20.1); Calc. Creatinine Clearance 45 mL/min (70-130); Calcium 8.7 mg/dL (7.8-10.44); Carbon Dioxide 18 mmol/L (23-31); Chloride 116 mmol/L (98-107); Glucose 148 mg/dL (83-110); Magnesium 2.2 mg/dL (1.6-2.6); Phosphorus 2.9 mg/dL (2.3-4.7); Potassium 3.3 mmol/L (3.5-5.1); Sodium 145 mmol/L (136-145)
[2021-06-19 16:46] LABS: Free Thyroxine Index 1.96 (1.4-3.1); T4 7.1 ug/dL (4.87-11.72); Thyroid Stimulating Hormone 1.1905 uIU/mL (0.35-4.94)
[2021-06-19] MEDS ORDERED: Amiodarone 150 MG, Admixture Fee 1 EACH in Dextrose 5% in Water 100 ML IVPB SCH (17:15)
[2021-06-19] MEDS: Amiodarone 450 MG, Admixture Fee 1 EACH in Dextrose 5% in Water 250 ML IVPB SCH (17:31)
[2021-06-19] MEDS ORDERED: Ketorolac Tromethamine 30 MG/ML VIAL IVP SCH (22:45)
[2021-06-19 23:02] LABS: #Basophils 0.1 thou/uL (0.0-0.2); #Eosinphils 0.1 thou/uL (0.0-0.7); #Lymphocytes 1.8 thou/uL (1.20-3.40); #Monocytes 1.7 thou/uL (0.11-0.59); %Basophils 0.3 % (0.0-1.0); %Eosinophils 0.6 % (0.0-10.0); %Lymphocytes 10.2 % (21.0-51.0); %Monocytes 9.4 % (0.0-10.0); %Neutrophils 79.5 % (42.0-75.0); Mean Corpuscular HGB CONC 32.1 g/dL (32.0-36.0); Mean Corpuscular Hemoglobin 28.9 pg (27.0-31.0); Mean Corpuscular Volume 89.9 fL (78.0-98.0); Mean Platelet Volume 6.9 fL (7.4-10.4); Platelet Count 328 thou/uL (130-400); RBC Distribution Width 15.2 % (11.5-14.5); Red Blood Cell (RBC) Count 4.15 mill/uL (4.20-5.40); White Blood Cell (WBC) Count 17.6 thou/uL (4.8-10.8)
[2021-06-19 23:22] LABS: Anion Gap 14 mmol/L (10-20); BUN (Urea Nitrogen) 17 mg/dL (9.8-20.1); Calc. Creatinine Clearance 39 mL/min (70-130); Calcium 8.6 mg/dL (7.8-10.44); Carbon Dioxide 19 mmol/L (23-31); Chloride 115 mmol/L (98-107); Glucose 167 mg/dL (83-110); Magnesium 2.3 mg/dL (1.6-2.6); Potassium 3.2 mmol/L (3.5-5.1); Sodium 145 mmol/L (136-145)
[2021-06-20] MEDS ORDERED: Potassium Chloride 20 MEQ in Premix Bag 1 BAG IVPB SCH (00:30)
[2021-06-20] MEDS: Amiodarone 450 MG, Admixture Fee 1 EACH in Dextrose 5% in Water 250 ML IVPB SCH ×2 (02:10→20:55)
[2021-06-20] MEDS: Vancomycin 1 GM in Premix Bag 1 BAG IVPB SCH (02:10)
[2021-06-20 04:09] LABS: #Eosinphils 0.1 thou/uL (0.0-0.7); #Lymphocytes 1.7 thou/uL (1.20-3.40); #Monocytes 1.6 thou/uL (0.11-0.59); #Neutrophils 11.8 thou/uL (1.40-6.50); %Basophils 0.3 % (0.0-1.0); %Eosinophils 0.7 % (0.0-10.0); %Lymphocytes 10.8 % (21.0-51.0); %Monocytes 10.3 % (0.0-10.0); %Neutrophils 77.9 % (42.0-75.0); Hemoglobin 10.9 g/dL (12.0-16.0); Mean Corpuscular HGB CONC 32.1 g/dL (32.0-36.0); Mean Corpuscular Hemoglobin 29.2 pg (27.0-31.0); Mean Corpuscular Volume 91.1 fL (78.0-98.0); Platelet Count 285 thou/uL (130-400); RBC Distribution Width 15.2 % (11.5-14.5); Red Blood Cell (RBC) Count 3.75 mill/uL (4.20-5.40); White Blood Cell (WBC) Count 15.2 thou/uL (4.8-10.8)
[2021-06-20] MEDS: Dextrose 5 %-0.45 % NaCl 1,000 ML IV SCH ×3 (04:41→15:51)
[2021-06-20 04:43] LABS: Anion Gap 11 mmol/L (10-20); BUN (Urea Nitrogen) 16 mg/dL (9.8-20.1); Calc. Creatinine Clearance 42 mL/min (70-130); Calcium 8.3 mg/dL (7.8-10.44); Carbon Dioxide 22 mmol/L (23-31); Chloride 113 mmol/L (98-107); Glucose 168 mg/dL (83-110); Magnesium 2.1 mg/dL (1.6-2.6); Sodium 143 mmol/L (136-145)
[2021-06-20 04:52] LABS: Potassium 2.8 mmol/L (3.5-5.1)
[2021-06-20 05:59] LABS: Bacteria/HPF None Seen HPF (None Seen); Bilirubin Negative (Negative); Blood, Urine Negative (Negative); Clarity Clear (Clear); Glucose, Urine (Dipstick) Normal (Negative); Ketone, Urine Negative (Negative); Leukocyte Negative Leu/uL (Negative); Nitrite Negative (Negative); Protein, Urine (Dipstick) 70 mg/dL (Neg-Trace); RBC/HPF 0-3 HPF (0-3); Specific Gravity, Urine 1.016 (1.002-1.036); Squamous Epithelial 0-3 HPF (0-3); Urobilinogen Normal mg/dL (Less than 2); WBC/HPF 0-3 HPF (0-3)
[2021-06-20 06:00] LABS: Urine Culture Reflex No No
[2021-06-20] MEDS: Cefepime 1 GM in Sodium Chloride 0.9% 100 ML IVPB SCH ×2 (08:16→21:09)
[2021-06-20 17:52] LABS: Color Of CSF Supernatant COLORLESS (Colorless); Tube # 2; Unspun CSF Color COLORLESS (Colorless)
[2021-06-20] MEDS ORDERED: Electrolyte Replacement Protocol 1 EACH FS SCH (18:00)
[2021-06-20] MEDS ORDERED: Electrolyte Replacement Protocol FS PRN (18:00)
[2021-06-20 18:14] LABS: CSF, Glucose 86 mg/dl (40-70); CSF, Protein 26 mg/dL (15-40)
[2021-06-20 18:15] LABS: CSF Source CSF; Clarity Clear (Clear); Tube # 4
[2021-06-20] MEDS: Potassium Chloride 20 MEQ in Premix Bag 1 BAG IVPB SCH ×2 (21:09→23:55)
[2021-06-20] MEDS: Metoprolol Tartrate 5 MG/5 ML VIAL IVP PRN (21:11)
[2021-06-21] MEDS: Potassium Chloride 20 MEQ in Premix Bag 1 BAG IVPB SCH (02:41)
[2021-06-21] MEDS: Vancomycin 1 GM in Premix Bag 1 BAG IVPB SCH (02:42)
[2021-06-21 03:50] LABS: #Eosinphils 0.1 thou/uL (0.0-0.7); #Lymphocytes 1.2 thou/uL (1.20-3.40); #Monocytes 1.4 thou/uL (0.11-0.59); #Neutrophils 9.4 thou/uL (1.40-6.50); %Basophils 0.2 % (0.0-1.0); %Eosinophils 0.8 % (0.0-10.0); %Lymphocytes 9.7 % (21.0-51.0); %Monocytes 11.8 % (0.0-10.0); %Neutrophils 77.6 % (42.0-75.0); Hemoglobin 10.1 g/dL (12.0-16.0); Mean Corpuscular HGB CONC 31.2 g/dL (32.0-36.0); Mean Corpuscular Hemoglobin 28.8 pg (27.0-31.0); Mean Corpuscular Volume 92.2 fL (78.0-98.0); Mean Platelet Volume 7.1 fL (7.4-10.4); Platelet Count 229 thou/uL (130-400); RBC Distribution Width 15.1 % (11.5-14.5); White Blood Cell (WBC) Count 12.1 thou/uL (4.8-10.8)
[2021-06-21 04:14] LABS: Anion Gap 11 mmol/L (10-20); BUN (Urea Nitrogen) 12 mg/dL (9.8-20.1); Calc. Creatinine Clearance 54 mL/min (70-130); Calcium 8.2 mg/dL (7.8-10.44); Carbon Dioxide 20 mmol/L (23-31); Chloride 115 mmol/L (98-107); Glucose 122 mg/dL (83-110); Magnesium 2.2 mg/dL (1.6-2.6); Potassium 3.6 mmol/L (3.5-5.1); Sodium 142 mmol/L (136-145)
[2021-06-21] MEDS: Dextrose 5 %-0.45 % NaCl 1,000 ML IV SCH ×3 (06:36→21:04)
[2021-06-21] MEDS: Cefepime 1 GM in Sodium Chloride 0.9% 100 ML IVPB SCH ×2 (08:57→21:10)
[2021-06-21] MEDS ORDERED: DULoxetine 30 MG CAP PO SCH (15:45)
[2021-06-21] MEDS: Metoprolol Tartrate 5 MG/5 ML VIAL IVP SCH ×2 (16:44→23:42)
[2021-06-21] MEDS ORDERED: DULoxetine 30 MG CAP PER TUBE SCH (16:45)
[2021-06-21] MEDS: Acetaminophen 650 MG/20.3 ML UDCUP PER TUBE SCH ×2 (17:11→23:42)
[2021-06-21] MEDS ORDERED: Gabapentin 100 MG CAP PO SCH (21:00)
[2021-06-21] MEDS: Amlodipine 5 MG TAB PER TUBE SCH (21:10)
[2021-06-21] MEDS: Enoxaparin Sodium 60 MG/0.6 ML SYRINGE SC SCH (21:11)
[2021-06-21] MEDS: Amiodarone 450 MG, Admixture Fee 1 EACH in Dextrose 5% in Water 250 ML IVPB SCH (23:42)
[2021-06-22 00:50] LABS: Vancomycin, Trough 7.8 ug/mL
[2021-06-22] MEDS: Vancomycin 1 GM in Premix Bag 1 BAG IVPB SCH (01:10)
[2021-06-22] MEDS: Metoprolol Tartrate 5 MG/5 ML VIAL IVP SCH ×2 (05:19→12:44)
[2021-06-22] MEDS: Acetaminophen 650 MG/20.3 ML UDCUP PER TUBE SCH ×3 (05:19→17:42)
[2021-06-22 05:21] LABS: #Eosinphils 0.1 thou/uL (0.0-0.7); #Monocytes 1.3 thou/uL (0.11-0.59); #Neutrophils 9.9 thou/uL (1.40-6.50); %Basophils 0.3 % (0.0-1.0); %Lymphocytes 8.2 % (21.0-51.0); %Monocytes 10.1 % (0.0-10.0); %Neutrophils 80.4 % (42.0-75.0); Hemoglobin 9.9 g/dL (12.0-16.0); Mean Corpuscular HGB CONC 31.9 g/dL (32.0-36.0); Mean Platelet Volume 7.8 fL (7.4-10.4); Platelet Count 211 thou/uL (130-400); RBC Distribution Width 15.3 % (11.5-14.5); White Blood Cell (WBC) Count 12.4 thou/uL (4.8-10.8)
[2021-06-22 05:39] LABS: Anion Gap 11 mmol/L (10-20); BUN (Urea Nitrogen) 10 mg/dL (9.8-20.1); Calc. Creatinine Clearance 60 mL/min (70-130); Calcium 8.5 mg/dL (7.8-10.44); Carbon Dioxide 20 mmol/L (23-31); Chloride 112 mmol/L (98-107); Glucose 154 mg/dL (83-110); Magnesium 2.1 mg/dL (1.6-2.6); Potassium 3.1 mmol/L (3.5-5.1); Sodium 140 mmol/L (136-145)
[2021-06-22] MEDS: Potassium Chloride 20 MEQ in Premix Bag 1 BAG IVPB SCH ×2 (05:54→08:10)
[2021-06-22] MEDS ORDERED: Polyvinyl Alcohol 1.4%/Povidone 0.6% Opth Drops EA EYE PRN (08:05)
[2021-06-22] MEDS ORDERED: DULoxetine 30 MG CAP PO SCH (09:00)
[2021-06-22] MEDS: DULoxetine 30 MG CAP PER TUBE SCH (10:30)
[2021-06-22] MEDS: Gabapentin 100 MG CAP PO SCH ×3 (10:30→21:19)
[2021-06-22] MEDS: Cefepime 1 GM in Sodium Chloride 0.9% 100 ML IVPB SCH ×2 (10:31→21:18)
[2021-06-22] MEDS: Enoxaparin Sodium 60 MG/0.6 ML SYRINGE SC SCH ×2 (10:31→21:20)
[2021-06-22] MEDS: Amiodarone 450 MG, Admixture Fee 1 EACH in Dextrose 5% in Water 250 ML IVPB SCH (12:44)
[2021-06-22] MEDS: Vancomycin HCl 750 MG in Sodium Chloride 0.9% 250 ML 250 ML IVPB SCH (13:28)
[2021-06-22] MEDS: Dextrose 5 %-0.45 % NaCl 1,000 ML IV SCH ×2 (16:41→17:42)
[2021-06-22] MEDS ORDERED: Metoprolol Tartrate 25 MG TAB PO SCH (21:00)
[2021-06-22] MEDS: Amlodipine 5 MG TAB PER TUBE SCH (21:20)
[2021-06-23] MEDS: Acetaminophen 650 MG/20.3 ML UDCUP PER TUBE SCH ×5 (01:04→23:47)
[2021-06-23] MEDS: Vancomycin HCl 750 MG in Sodium Chloride 0.9% 250 ML 250 ML IVPB SCH ×2 (01:10→13:52)
[2021-06-23] MEDS: Amiodarone 450 MG, Admixture Fee 1 EACH in Dextrose 5% in Water 250 ML IVPB SCH (03:43)
[2021-06-23 05:26] LABS: Anion Gap 12 mmol/L (10-20); BUN (Urea Nitrogen) 13 mg/dL (9.8-20.1); Calc. Creatinine Clearance 60 mL/min (70-130); Calcium 8.8 mg/dL (7.8-10.44); Carbon Dioxide 18 mmol/L (23-31); Chloride 111 mmol/L (98-107); Glucose 106 mg/dL (83-110); Magnesium 2.2 mg/dL (1.6-2.6); Potassium 4.2 mmol/L (3.5-5.1); Sodium 137 mmol/L (136-145)
[2021-06-23] MEDS: DULoxetine 30 MG CAP PER TUBE SCH (08:26)
[2021-06-23] MEDS: Gabapentin 100 MG CAP PO SCH ×3 (08:26→21:04)
[2021-06-23] MEDS: Cefepime 1 GM in Sodium Chloride 0.9% 100 ML IVPB SCH ×2 (08:27→21:03)
[2021-06-23] MEDS: Enoxaparin Sodium 60 MG/0.6 ML SYRINGE SC SCH ×2 (08:28→21:04)
[2021-06-23 13:04] LABS: Vancomycin, Trough 17.1 ug/mL
[2021-06-23] MEDS: Dextrose 5 %-0.45 % NaCl 1,000 ML IV SCH ×2 (13:42→23:58)
[2021-06-23] MEDS: Amlodipine 5 MG TAB PER TUBE SCH (21:04)
[2021-06-23] MEDS: Amiodarone 200 MG TAB PO SCH (21:04)
[2021-06-24] MEDS: Vancomycin HCl 750 MG in Sodium Chloride 0.9% 250 ML 250 ML IVPB SCH ×2 (01:22→14:19)
[2021-06-24] MEDS: Acetaminophen 650 MG/20.3 ML UDCUP PER TUBE SCH ×5 (05:57→21:27)
[2021-06-24 08:10] LABS: #Eosinphils 0.2 thou/uL (0.0-0.7); #Monocytes 1.1 thou/uL (0.11-0.59); %Basophils 0.2 % (0.0-1.0); %Eosinophils 1.3 % (0.0-10.0); %Lymphocytes 8.1 % (21.0-51.0); %Monocytes 9.1 % (0.0-10.0); %Neutrophils 81.3 % (42.0-75.0); Hemoglobin 8.4 g/dL (12.0-16.0); Mean Corpuscular HGB CONC 30.6 g/dL (32.0-36.0); Mean Corpuscular Hemoglobin 28.5 pg (27.0-31.0); Mean Corpuscular Volume 93.3 fL (78.0-98.0); Mean Platelet Volume 8.1 fL (7.4-10.4); Platelet Count 215 thou/uL (130-400); RBC Distribution Width 15.7 % (11.5-14.5); Red Blood Cell (RBC) Count 2.93 mill/uL (4.20-5.40); White Blood Cell (WBC) Count 12.2 thou/uL (4.8-10.8)
[2021-06-24 08:16] LABS: Anion Gap 7 mmol/L (10-20); BUN (Urea Nitrogen) 14 mg/dL (9.8-20.1); Calc. Creatinine Clearance 65 mL/min (70-130); Calcium 8.9 mg/dL (7.8-10.44); Carbon Dioxide 23 mmol/L (23-31); Chloride 113 mmol/L (98-107); Glucose 135 mg/dL (83-110); Potassium 3.8 mmol/L (3.5-5.1); Sodium 139 mmol/L (136-145)
[2021-06-24] MEDS: Gabapentin 100 MG CAP PO SCH ×3 (08:25→21:22)
[2021-06-24] MEDS: Amiodarone 200 MG TAB PO SCH ×2 (08:25→21:22)
[2021-06-24] MEDS: Cefepime 1 GM in Sodium Chloride 0.9% 100 ML IVPB SCH ×2 (08:25→21:22)
[2021-06-24] MEDS: Apixaban 5 MG TAB PO SCH ×2 (08:25→21:23)
[2021-06-24] MEDS: DULoxetine 30 MG CAP PER TUBE SCH (08:26)
[2021-06-24 14:34] LABS: SARS-CoV-2 PCR by NAA Not Detected (NotDetected)
[2021-06-24] MEDS: Dextrose 5 %-0.45 % NaCl 1,000 ML IV SCH (21:21)
[2021-06-24] MEDS: Amlodipine 5 MG TAB PER TUBE SCH (21:23)
[2021-06-25] MEDS: Acetaminophen 650 MG/20.3 ML UDCUP PER TUBE SCH ×3 (05:29→18:21)
[2021-06-25] MEDS: Gabapentin 100 MG CAP PO SCH (08:23)
[2021-06-25] MEDS: Cefepime 1 GM in Sodium Chloride 0.9% 100 ML IVPB SCH ×2 (08:23→20:25)
[2021-06-25] MEDS: DULoxetine 30 MG CAP PER TUBE SCH (08:23)
[2021-06-25] MEDS: Apixaban 5 MG TAB PO SCH ×2 (08:25→20:27)
[2021-06-25] MEDS: Amiodarone 200 MG TAB PO SCH ×2 (08:25→20:25)
[2021-06-25] MEDS: traMADol HCl 50 MG TAB PO PRN ×2 (08:54→15:21)
[2021-06-25] MEDS ORDERED: Gabapentin 100 MG CAP PO SCH (08:58)
[2021-06-25] MEDS: Furosemide 40 MG TAB PO SCH (10:01)
[2021-06-25] MEDS: Gabapentin 300 MG CAP PO SCH ×3 (10:01→20:26)
[2021-06-25] MEDS: Polyvinyl Alcohol 1.4%/Povidone 0.6% Opth Drops EA EYE SCH ×3 (10:01→20:25)
[2021-06-25] MEDS: Anastrozole 1 MG TAB PO SCH (10:02)
[2021-06-25] MEDS: Potassium Chloride 20 MEQ TAB PO SCH (10:10)
[2021-06-25 12:05] LABS: Vancomycin, Trough 7.4 ug/mL
[2021-06-25] MEDS: Amlodipine 5 MG TAB PO SCH (20:27)
[2021-06-26] MEDS: Acetaminophen 650 MG/20.3 ML UDCUP PER TUBE SCH ×2 (01:06→06:51)
[2021-06-26] MEDS: traMADol HCl 50 MG TAB PO PRN ×4 (01:07→20:32)
[2021-06-26 07:36] LABS: #Basophils 0.1 thou/uL (0.0-0.2); #Eosinphils 0.3 thou/uL (0.0-0.7); #Lymphocytes 0.9 thou/uL (1.20-3.40); #Monocytes 1.2 thou/uL (0.11-0.59); #Neutrophils 6.1 thou/uL (1.40-6.50); %Basophils 0.6 % (0.0-1.0); %Eosinophils 3.1 % (0.0-10.0); %Lymphocytes 10.9 % (21.0-51.0); %Monocytes 13.5 % (0.0-10.0); %Neutrophils 71.9 % (42.0-75.0); Hemoglobin 8.6 g/dL (12.0-16.0); Mean Corpuscular HGB CONC 31.6 g/dL (32.0-36.0); Mean Corpuscular Hemoglobin 29.2 pg (27.0-31.0); Mean Corpuscular Volume 92.3 fL (78.0-98.0); Mean Platelet Volume 7.6 fL (7.4-10.4); Platelet Count 311 thou/uL (130-400); RBC Distribution Width 15.1 % (11.5-14.5); Red Blood Cell (RBC) Count 2.96 mill/uL (4.20-5.40); White Blood Cell (WBC) Count 8.5 thou/uL (4.8-10.8)
[2021-06-26 07:56] LABS: Anion Gap 11 mmol/L (10-20); BUN (Urea Nitrogen) 11 mg/dL (9.8-20.1); Calc. Creatinine Clearance 65 mL/min (70-130); Calcium 8.5 mg/dL (7.8-10.44); Carbon Dioxide 23 mmol/L (23-31); Chloride 107 mmol/L (98-107); Glucose 89 mg/dL (83-110); Potassium 3.7 mmol/L (3.5-5.1); Sodium 137 mmol/L (136-145)
[2021-06-26] MEDS: Cefepime 1 GM in Sodium Chloride 0.9% 100 ML IVPB SCH (09:25)
[2021-06-26] MEDS: Amiodarone 200 MG TAB PO SCH ×2 (09:25→20:32)
[2021-06-26] MEDS: Apixaban 5 MG TAB PO SCH ×2 (09:25→20:34)
[2021-06-26] MEDS: Anastrozole 1 MG TAB PO SCH (09:25)
[2021-06-26] MEDS: Potassium Chloride 20 MEQ TAB PO SCH ×2 (09:26→17:32)
[2021-06-26] MEDS: Polyvinyl Alcohol 1.4%/Povidone 0.6% Opth Drops EA EYE SCH ×3 (09:26→20:39)
[2021-06-26] MEDS: DULoxetine 30 MG CAP PER TUBE SCH (09:26)
[2021-06-26] MEDS: Gabapentin 300 MG CAP PO SCH ×3 (09:26→20:34)
[2021-06-26] MEDS: Furosemide 40 MG TAB PO SCH ×2 (09:26→15:00)
[2021-06-26] MEDS: Acetaminophen 500 MG TAB PO PRN (12:04)
[2021-06-26] MEDS: Amlodipine 5 MG TAB PO SCH (20:34)
[2021-06-27] MEDS: Acetaminophen 500 MG TAB PO PRN ×4 (00:08→20:48)
[2021-06-27] MEDS: Gabapentin 300 MG CAP PO SCH ×3 (08:16→20:49)
[2021-06-27] MEDS: traMADol HCl 50 MG TAB PO PRN ×3 (08:16→20:49)
[2021-06-27] MEDS: Apixaban 5 MG TAB PO SCH ×2 (08:18→20:50)
[2021-06-27] MEDS ORDERED: ENTECAVIR 0.5 MG PO SCH (10:11)
[2021-06-27] MEDS ORDERED: Oxybutynin 5 MG TAB PO SCH ×2 (10:12→10:30)
[2021-06-27] MEDS ORDERED: DULoxetine 30 MG CAP PO SCH (10:15)
[2021-06-27] MEDS ORDERED: DULoxetine 60 MG CAP PO SCH (10:30)
[2021-06-27] MEDS: Amiodarone 200 MG TAB PO SCH ×2 (11:51→20:52)
[2021-06-27] MEDS: Ferrous Gluconate 324 MG TAB PO SCH (11:51)
[2021-06-27] MEDS: Ascorbic Acid 500 mg Chewable Tablet PO SCH (11:51)
[2021-06-27] MEDS: Potassium Chloride 20 MEQ TAB PO SCH ×3 (11:51→18:11)
[2021-06-27] MEDS: Anastrozole 1 MG TAB PO SCH (11:51)
[2021-06-27] MEDS: Furosemide 40 MG TAB PO SCH ×2 (11:52→18:07)
[2021-06-27] MEDS: Polyvinyl Alcohol 1.4%/Povidone 0.6% Opth Drops EA EYE SCH ×3 (11:53→20:50)
[2021-06-27] MEDS: DULoxetine 30 MG CAP PER TUBE SCH (11:58)
[2021-06-27] MEDS: ALPRAZolam 0.25 MG TAB PO PRN ×2 (12:06→23:39)
[2021-06-27] MEDS: Amlodipine 5 MG TAB PO SCH (20:53)
[2021-06-28] MEDS: Acetaminophen 500 MG TAB PO PRN ×3 (05:27→17:15)
[2021-06-28] MEDS: traMADol HCl 50 MG TAB PO PRN ×3 (05:27→17:15)
[2021-06-28 05:32] LABS: Anion Gap 9 mmol/L (10-20); BUN (Urea Nitrogen) 16 mg/dL (9.8-20.1); Calc. Creatinine Clearance 46 mL/min (70-130); Calcium 8.3 mg/dL (7.8-10.44); Carbon Dioxide 27 mmol/L (23-31); Chloride 102 mmol/L (98-107); Glucose 100 mg/dL (83-110); Magnesium 2.3 mg/dL (1.6-2.6); Sodium 135 mmol/L (136-145)
[2021-06-28] MEDS ORDERED: Potassium Chloride 20 MEQ TAB PO SCH (07:00)
[2021-06-28] MEDS: Gabapentin 300 MG CAP PO SCH ×2 (08:19→17:11)
[2021-06-28] MEDS: Amiodarone 200 MG TAB PO SCH (08:19)
[2021-06-28] MEDS: Anastrozole 1 MG TAB PO SCH (08:20)
[2021-06-28] MEDS: Ferrous Gluconate 324 MG TAB PO SCH (08:21)
[2021-06-28] MEDS: Apixaban 5 MG TAB PO SCH (08:21)
[2021-06-28] MEDS: Furosemide 40 MG TAB PO SCH ×3 (08:21→13:06)
[2021-06-28] MEDS: Ascorbic Acid 500 mg Chewable Tablet PO SCH (08:21)
[2021-06-28] MEDS: Polyvinyl Alcohol 1.4%/Povidone 0.6% Opth Drops EA EYE SCH ×2 (08:22→17:19)
[2021-06-28] MEDS ORDERED: DULoxetine 30 MG CAP PO SCH (09:00)
[2021-06-28] MEDS ORDERED: DULoxetine 60 MG CAP PO SCH (09:00)
[2021-06-28] MEDS ORDERED: ENTECAVIR 0.5 MG PO SCH (09:00)
[2021-06-28] MEDS ORDERED: Oxybutynin 5 MG TAB PO SCH (09:00)
[2021-06-28] MEDS: Potassium Chloride 20 MEQ TAB PO SCH ×2 (13:03→17:20)
[2021-06-28 15:54] VITALS: BP 107/57; TEMP 98.1
== END 2021-06-28 18:50 | DRG 92 ==
LOC: ERS 06:03 → ERHOLD 09:26 → 2NO 16:56 → OBSVTOIN 06-18 15:52 → IMCU/EMU 06-19 15:44 → NEURO 06-21 19:11
PROVIDERS: ADMIT Internal Medicine; ATTEND Internal Medicine
PROC: 4A10X4Z Monitoring of Central Nervous Electrical Activity, External Approach (ICD-10-PCS; principal; 2021-06-19)
PROC: 009U3ZX Drainage of Spinal Canal, Percutaneous Approach, Diagnostic (ICD-10-PCS; 2021-06-20)
PROC: B01B1ZZ Fluoroscopy of Spinal Cord using Low Osmolar Contrast (ICD-10-PCS; 2021-06-20)
PROC: 4A10X4Z Monitoring of Central Nervous Electrical Activity, External Approach (ICD-10-PCS; 2021-06-21)
PROC: 0DH67UZ Insertion of Feeding Device into Stomach, Via Natural or Artificial Opening (ICD-10-PCS; 2021-06-21)
DX: G92.9 Unspecified toxic encephalopathy (principal); B18.1 Chronic viral hepatitis B without delta-agent; I47.1 Supraventricular tachycardia; N30.00 Acute cystitis without hematuria; I82.612 Acute embolism and thrombosis of superficial veins of left upper extremity; F03.90 Unspecified dementia, unspecified severity, without behavioral disturbance, psychotic disturbance, mood disturbance, and anxiety; I10 Essential (primary) hypertension; G62.9 Polyneuropathy, unspecified; E78.5 Hyperlipidemia, unspecified; F32.A Depression, unspecified; M06.9 Rheumatoid arthritis, unspecified; E87.6 Hypokalemia; G89.4 Chronic pain syndrome; E78.00 Pure hypercholesterolemia, unspecified; D89.89 Other specified disorders involving the immune mechanism, not elsewhere classified; M48.061 Spinal stenosis, lumbar region without neurogenic claudication; I48.0 Paroxysmal atrial fibrillation; C50.919 Malignant neoplasm of unspecified site of unspecified female breast; T43.95XA Adverse effect of unspecified psychotropic drug, initial encounter; Y92.009 Unspecified place in unspecified non-institutional (private) residence as the place of occurrence of the external cause; Z88.8 Allergy status to other drugs, medicaments and biological substances; Z79.899 Other long term (current) drug therapy; Z85.3 Personal history of malignant neoplasm of breast; Z98.890 Other specified postprocedural states; Z20.822 Contact with and (suspected) exposure to COVID-19
CPT/HCPCS: 36415; 36416; 51701; 62270; 70450; 70551; 71045; 71250; 72170; 74018; 74230; 76999; 80048; 80053; 80202; 80306; 80307; 81001; 81003; 82140; 82607; 82805; 82945; 83540; 83550; 83605; 83735; 84100; 84146; 84157; 84436; 84443; 84479; 84484; 85025; 87040; 87070; 87086; 87205; 89051; 93005; 93010; 95712; 95816; 95819; 95957; 96365; 96366; 96367; 96368; 96375; 96376; G0378; J0282; J0692; J0696; J1630; J1650; J3370; J3475; J3480; J3490; J7030; J7042; J7050; J7070; U0003; U0005

== ENCOUNTER 2021-12-18 23:21 | Emergency (ER) | payer MEDICARE ==
[2021-12-19] MEDS ORDERED: Ketorolac Tromethamine 30 MG/ML VIAL ONE (01:30)
== END 2021-12-19 02:18 | disposition home or self-care (01) ==
LOC: ERS 23:21
DX: S83.92XA Sprain of unspecified site of left knee, initial encounter (principal); I48.91 Unspecified atrial fibrillation; G60.9 Hereditary and idiopathic neuropathy, unspecified; M06.9 Rheumatoid arthritis, unspecified; X50.1XXA Overexertion from prolonged static or awkward postures, initial encounter; Z85.3 Personal history of malignant neoplasm of breast
CPT/HCPCS: 96372; J1885

== ENCOUNTER 2023-02-11 09:55 | Outpatient (CLI) | payer MEDICARE | END 2023-02-11 09:56 | disposition home or self-care (01) | LOC: BICMAMMO 09:55 | PROVIDERS: ATTEND Family Medicine | DX: Z12.31 Encounter for screening mammogram for malignant neoplasm of breast (principal); Z80.3 Family history of malignant neoplasm of breast; Z85.3 Personal history of malignant neoplasm of breast; Z98.890 Other specified postprocedural states | CPT/HCPCS: 77063; 77067 ==

== ENCOUNTER 2023-12-05 03:07 | Inpatient (IN) | payer MEDICARE ==
[2023-12-05] MEDS ORDERED: Morphine 2 MG/ML VIAL ONE (03:49)
[2023-12-05] MEDS ORDERED: Ondansetron PF 4 MG/2 ML Vial ONE (03:52)
[2023-12-05 03:59] LABS: #Basophils Less than 0.03 10x3/uL (0.0-0.2); %Basophils 0.1 % (0.0-1.0); %Eosinophils 3.5 % (0.0-10.0); %Lymphocytes 4.9 % (21.0-51.0); %Monocytes 6.5 % (0.0-10.0); %Neutrophils 84.3 % (42.0-75.0); Hematocrit 29.6 % (36.0-47.0); Hemoglobin 9.6 g/dL (12.0-16.0); Mean Corpuscular HGB CONC 32.4 g/dL (32.0-36.0); Mean Corpuscular Hemoglobin 28.2 pg (27.0-31.0); Mean Corpuscular Volume 86.8 fL (78.0-98.0); Mean Platelet Volume 9.8 fL (7.4-10.4); Platelet Count 310 10x3/uL (130-400); RBC Distribution Width 14.5 % (11.5-14.5); Red Blood Cell (RBC) Count 3.41 mill/uL (4.20-5.40)
[2023-12-05 04:15] LABS: Troponin I Less than 0.010 ng/mL (< 0.028)
[2023-12-05 05:04] LABS: ALT (SGPT) 14 U/L (8-55); AST (SGOT) 19 U/L (5-34); Alkaline Phosphatase 68 U/L (40-110); Anion Gap 16 mmol/L (10-20); BUN (Urea Nitrogen) 13 mg/dL (9.8-20.1); Bilirubin, Total 0.4 mg/dL (0.2-1.2); Calc. Creatinine Clearance 0 mL/min (70-130); Calcium 9.2 mg/dL (7.8-10.44); Carbon Dioxide 20 mmol/L (23-31); Chloride 105 mmol/L (98-107); Estimated GFR 46; Globulin 2.4 g/dL (2.4-3.5); Glucose 105 mg/dL (83-110); Potassium 2.9 mmol/L (3.5-5.1); Protein, Total 5.4 g/dL (5.8-8.1); Sodium 138 mmol/L (136-145)
[2023-12-05 06:29] LABS: Lipase 55 U/L (8-78)
[2023-12-05] MEDS ORDERED: Potassium Chloride 20 MEQ TAB ONE (07:59)
[2023-12-05] MEDS ORDERED: Loperamide HCl 2 MG CAP ONE (07:59)
[2023-12-05] MEDS ORDERED: Labetalol HCl 100 MG/20 ML VIAL SLOW IVP PRN (08:45)
[2023-12-05] MEDS ORDERED: Ondansetron ODT 4 MG TAB PO PRN (08:45)
[2023-12-05 09:20] VITALS: BMI 25.2
[2023-12-05] MEDS: Apixaban 5 MG TAB PO SCH (09:21)
[2023-12-05] MEDS: Lactated Ringer's 1,000 ML IV SCH (09:22)
[2023-12-05] MEDS ORDERED: Iopamidol-370 76% 500 ML MDV (1 ML CHARGE) ONE (12:54)
[2023-12-05] MEDS ORDERED: predniSONE 5 MG TAB PO PRN (13:04)
[2023-12-05] MEDS: Gabapentin 400 MG CAP PO SCH (15:38)
[2023-12-05] MEDS: traMADol HCl 50 MG TAB PO PRN (15:38)
[2023-12-05] MEDS: Dronedarone HCl 400 MG TAB PO SCH (18:06)
[2023-12-05] MEDS: Loperamide HCl 2 MG CAP PO PRN (18:06)
[2023-12-05] MEDS: DULoxetine 60 MG CAP PO SCH (20:31)
[2023-12-06 06:42] LABS: #Basophils Less than 0.03 10x3/uL (0.0-0.2); %Basophils 0.2 % (0.0-1.0); %Eosinophils 9.7 % (0.0-10.0); %Lymphocytes 14.7 % (21.0-51.0); %Monocytes 11.4 % (0.0-10.0); %Neutrophils 62.3 % (42.0-75.0); Hematocrit 26.4 % (36.0-47.0); Hemoglobin 8.1 g/dL (12.0-16.0); Mean Corpuscular HGB CONC 30.7 g/dL (32.0-36.0); Mean Corpuscular Hemoglobin 27.4 pg (27.0-31.0); Mean Corpuscular Volume 89.2 fL (78.0-98.0); Platelet Count 269 10x3/uL (130-400); RBC Distribution Width 14.9 % (11.5-14.5); Red Blood Cell (RBC) Count 2.96 mill/uL (4.20-5.40)
[2023-12-06 07:05] LABS: Anion Gap 12 mmol/L (10-20); BUN (Urea Nitrogen) 7 mg/dL (9.8-20.1); Calc. Creatinine Clearance 62 mL/min (70-130); Calcium 8.6 mg/dL (7.8-10.44); Carbon Dioxide 22 mmol/L (23-31); Chloride 108 mmol/L (98-107); Estimated GFR 77; Glucose 62 mg/dL (83-110); Potassium 2.8 mmol/L (3.5-5.1); Sodium 139 mmol/L (136-145)
[2023-12-06] MEDS: Oxybutynin 5 MG TAB PO SCH (08:48)
[2023-12-06] MEDS ORDERED: Cyanocobalamin 1000 MCG/ML VIAL IM SCH (10:00)
[2023-12-06] MEDS: ALPRAZolam 0.25 MG TAB PO PRN (11:34)
[2023-12-06] MEDS: traMADol HCl 50 MG TAB PO PRN (11:38)
[2023-12-06 14:02] LABS: Campy jejuni + coli by PCR Negative (Negative); STEC Shiga Toxin 1+2 Negative (Negative); Salmonella spp. by PCR Negative (Negative); Shigella spp + EIEC by PCR Negative (Negative)
[2023-12-06] MEDS: Acetaminophen 500 MG TAB PO PRN (21:45)
[2023-12-07 05:51] LABS: #Basophils Less than 0.03 10x3/uL (0.0-0.2); %Basophils 0.2 % (0.0-1.0); %Lymphocytes 12.8 % (21.0-51.0); %Monocytes 8.6 % (0.0-10.0); %Neutrophils 57.3 % (42.0-75.0); Hematocrit 29.3 % (36.0-47.0); Hemoglobin 9.2 g/dL (12.0-16.0); Mean Corpuscular HGB CONC 31.4 g/dL (32.0-36.0); Mean Corpuscular Hemoglobin 28.2 pg (27.0-31.0); Mean Corpuscular Volume 89.9 fL (78.0-98.0); Mean Platelet Volume 9.7 fL (7.4-10.4); Platelet Count 287 10x3/uL (130-400); RBC Distribution Width 14.9 % (11.5-14.5); Red Blood Cell (RBC) Count 3.26 mill/uL (4.20-5.40)
[2023-12-07 06:25] LABS: Anion Gap 8 mmol/L (10-20); BUN (Urea Nitrogen) 4 mg/dL (9.8-20.1); Calc. Creatinine Clearance 65 mL/min (70-130); Calcium 8.5 mg/dL (7.8-10.44); Carbon Dioxide 25 mmol/L (23-31); Chloride 112 mmol/L (98-107); Estimated GFR 82; Glucose 93 mg/dL (83-110); Potassium 3.1 mmol/L (3.5-5.1); Sodium 142 mmol/L (136-145)
[2023-12-07] MEDS: Ascorbic Acid 500 mg Chewable Tablet PO SCH (09:06)
[2023-12-07] MEDS: Folic Acid 1 MG TAB PO SCH (09:06)
[2023-12-07] MEDS: Pantoprazole DR 40 MG TAB PO SCH (09:06)
[2023-12-07] MEDS: Ferrous Gluconate 324 MG TAB PO SCH (09:06)
[2023-12-08 04:37] LABS: Adenovirus F 40-41 Not Detected (Not Detected); Astrovirus Not Detected (Not Detected); C. difficile toxin A+B Not Detected (Not Detected); Campylobacter by PCR Not Detected (Not Detected); Cryptosporidium Not Detected (Not Detected); Cyclospora cayetanensis Not Detected (Not Detected); Entamoeba histolytica Not Detected (Not Detected); Enteroaggregative E. coli Not Detected (Not Detected); Enteropathogenic E. coli Not Detected (Not Detected); Enterotoxigenic E. coli Not Detected (Not Detected); Giardia lamblia Not Detected (Not Detected); Norovirus GI-GII Not Detected (Not Detected); Plesiomonas shigelloides Not Detected (Not Detected); Rotavirus A Not Detected (Not Detected); Salmonella Not Detected (Not Detected); Sapovirus Not Detected (Not Detected); Shiga-toxin-producing E coli Not Detected (Not Detected); Shigella/Enteroinvasive E coli Not Detected (Not Detected); Vibrio Not Detected (Not Detected); Vibrio cholerae Not Detected (Not Detected); Yersinia enterocolitica Not Detected (Not Detected)
[2023-12-08 06:19] LABS: Hematocrit 25.9 % (36.0-47.0); Hemoglobin 8.3 g/dL (12.0-16.0); Mean Corpuscular Hemoglobin 28.4 pg (27.0-31.0); Mean Corpuscular Volume 88.7 fL (78.0-98.0); Platelet Count 246 10x3/uL (130-400); RBC Distribution Width 14.9 % (11.5-14.5); Red Blood Cell (RBC) Count 2.92 mill/uL (4.20-5.40)
[2023-12-08 06:21] LABS: Anion Gap 7 mmol/L (10-20); BUN (Urea Nitrogen) 5 mg/dL (9.8-20.1); Calc. Creatinine Clearance 72 mL/min (70-130); Calcium 8.4 mg/dL (7.8-10.44); Carbon Dioxide 23 mmol/L (23-31); Chloride 114 mmol/L (98-107); Estimated GFR 90; Glucose 87 mg/dL (83-110); Sodium 141 mmol/L (136-145)
[2023-12-08] MEDS: Potassium Chloride 20 MEQ TAB PO SCH (09:07)
[2023-12-08] MEDS: Ondansetron ODT 4 MG TAB SL PRN (09:24)
[2023-12-08 09:30] LABS: Band 1 % (5-11); Eosinophils 21 % (0-10); Lymphocytes 7 % (21-51); Monocytes 4 % (0-10); Neutrophil 67 % (42-75); Platelet Adequacy Comment Platelets Normal; RBC Morphology Within Normal Limits
[2023-12-08] MEDS: Loperamide HCl 2 MG CAP PO PRN (22:02)
[2023-12-08] MEDS: Ondansetron PF 4 MG/2 ML Vial IVP PRN (22:12)
[2023-12-09] MEDS: Promethazine HCl 25 MG in Sodium Chloride 0.9% 50 ML IVPB SCH (00:34)
[2023-12-09 05:22] LABS: #Basophils Less than 0.03 10x3/uL (0.0-0.2); %Basophils 0.2 % (0.0-1.0); %Eosinophils 8.4 % (0.0-10.0); %Lymphocytes 7.6 % (21.0-51.0); %Monocytes 6.3 % (0.0-10.0); %Neutrophils 76.4 % (42.0-75.0); Hemoglobin 8.7 g/dL (12.0-16.0); Mean Corpuscular HGB CONC 32.2 g/dL (32.0-36.0); Mean Corpuscular Hemoglobin 28.7 pg (27.0-31.0); Mean Corpuscular Volume 89.1 fL (78.0-98.0); Mean Platelet Volume 9.8 fL (7.4-10.4); Platelet Count 245 10x3/uL (130-400); RBC Distribution Width 15.1 % (11.5-14.5); Red Blood Cell (RBC) Count 3.03 mill/uL (4.20-5.40)
[2023-12-09 05:46] LABS: Anion Gap 11 mmol/L (10-20); BUN (Urea Nitrogen) 6 mg/dL (9.8-20.1); Calc. Creatinine Clearance 68 mL/min (70-130); Carbon Dioxide 21 mmol/L (23-31); Chloride 112 mmol/L (98-107); Estimated GFR 87; Glucose 98 mg/dL (83-110); Potassium 3.3 mmol/L (3.5-5.1); Sodium 141 mmol/L (136-145)
[2023-12-09 16:03] VITALS: BP 145/80; TEMP 99
== END 2023-12-09 16:22 | disposition home health service (06) | DRG 392 ==
LOC: ERS 03:07 → MSONC 07:53
PROVIDERS: ADMIT Internal Medicine; ATTEND Hospitalist
DX: A08.4 Viral intestinal infection, unspecified (principal); B18.1 Chronic viral hepatitis B without delta-agent; I10 Essential (primary) hypertension; G62.9 Polyneuropathy, unspecified; I48.0 Paroxysmal atrial fibrillation; M06.9 Rheumatoid arthritis, unspecified; F03.90 Unspecified dementia, unspecified severity, without behavioral disturbance, psychotic disturbance, mood disturbance, and anxiety; D63.8 Anemia in other chronic diseases classified elsewhere; F41.9 Anxiety disorder, unspecified; E87.6 Hypokalemia; E78.5 Hyperlipidemia, unspecified; Z88.8 Allergy status to other drugs, medicaments and biological substances; Z79.899 Other long term (current) drug therapy; Z85.3 Personal history of malignant neoplasm of breast; Z98.890 Other specified postprocedural states; A09 Infectious gastroenteritis and colitis, unspecified; I11.0 Hypertensive heart disease with heart failure; I50.9 Heart failure, unspecified; I48.91 Unspecified atrial fibrillation; D64.9 Anemia, unspecified; Z79.01 Long term (current) use of anticoagulants
CPT/HCPCS: 36415; 74177; 80048; 80053; 82274; 83605; 83690; 84484; 85025; 87324; 87449; 87505; 87507; 93005; 96360; 96374; 96375; J2272; J2405; J2550; J7120; Q0162; Q9967

== ENCOUNTER 2024-01-13 11:42 | Inpatient (IN) | payer MEDICARE ==
[2024-01-13 12:42] LABS: #Basophils Less than 0.03 10x3/uL (0.0-0.2); %Basophils 0.3 % (0.0-1.0); %Eosinophils 1.5 % (0.0-10.0); %Lymphocytes 17.3 % (21.0-51.0); %Monocytes 9.4 % (0.0-10.0); %Neutrophils 70.9 % (42.0-75.0); Hematocrit 19.6 % (36.0-47.0); Mean Corpuscular HGB CONC 30.6 g/dL (32.0-36.0); Mean Corpuscular Hemoglobin 26.4 pg (27.0-31.0); Mean Corpuscular Volume 86.3 fL (78.0-98.0); Mean Platelet Volume 9.4 fL (7.4-10.4); Platelet Count 260 10x3/uL (130-400); RBC Distribution Width 14.8 % (11.5-14.5); Red Blood Cell (RBC) Count 2.27 mill/uL (4.20-5.40)
[2024-01-13 12:58] LABS: INR-International Normal Ratio 1.5
[2024-01-13 13:07] LABS: ALT (SGPT) 11 U/L (8-55); AST (SGOT) 10 U/L (5-34); Albumin 2.9 g/dL (3.4-4.8); Alkaline Phosphatase 59 U/L (40-110); Anion Gap 14 mmol/L (10-20); BUN (Urea Nitrogen) 21 mg/dL (9.8-20.1); Bilirubin, Total 0.3 mg/dL (0.2-1.2); Calc. Creatinine Clearance 0 mL/min (70-130); Carbon Dioxide 26 mmol/L (23-31); Chloride 106 mmol/L (98-107); Estimated GFR 37; Globulin 2.6 g/dL (2.4-3.5); Glucose 118 mg/dL (83-110); Potassium 3.5 mmol/L (3.5-5.1); Protein, Total 5.5 g/dL (5.8-8.1); Sodium 142 mmol/L (136-145)
[2024-01-13 13:12] LABS: Troponin I Less than 0.010 ng/mL (< 0.028)
[2024-01-13] MEDS ORDERED: cefTRIAXone (ROCEPHIN) 2 GM VIAL ONE (13:43)
[2024-01-13] MEDS ORDERED: Sodium Chloride 0.9% 100 ML ONE (13:43)
[2024-01-13 14:22] LABS: Lipase 18 U/L (8-78); Magnesium 2.1 mg/dL (1.6-2.6)
[2024-01-13 15:57] LABS: Bacteria/HPF None Seen HPF (None Seen); Bilirubin Negative (Negative); Blood, Urine 2+ (Negative); CAUTI Indications for Culture Dysuria,urgency,freq; Clarity Clear (Clear); Glucose, Urine (Dipstick) Normal (Negative); Ketone, Urine Negative (Negative); Leukocyte Negative Leu/uL (Negative); Nitrite Negative (Negative); Protein, Urine (Dipstick) Negative (Neg-Trace); RBC/HPF 0-3 HPF (0-3); Specific Gravity, Urine 1.009 (1.002-1.036); Squamous Epithelial 0-3 HPF (0-3); Urobilinogen Normal mg/dL (Less than 2); WBC/HPF 0-3 HPF (0-3); pH, Urine 6.5 (5.0-9.0)
[2024-01-13] MEDS ORDERED: Acetaminophen 325 MG TAB ONE (16:01)
[2024-01-13 16:03] LABS: Urine Culture Reflex No No
[2024-01-13] MEDS ORDERED: Cyanocobalamin 1000 MCG/ML VIAL IM SCH (17:00)
[2024-01-13 22:08] LABS: #Basophils 0.04 10x3/uL (0.0-0.2); %Basophils 0.6 % (0.0-1.0); %Eosinophils 3.9 % (0.0-10.0); %Lymphocytes 18.8 % (21.0-51.0); %Monocytes 12.9 % (0.0-10.0); Hematocrit 25.9 % (36.0-47.0); Hemoglobin 8.3 g/dL (12.0-16.0); Mean Corpuscular Hemoglobin 26.9 pg (27.0-31.0); Mean Corpuscular Volume 84.1 fL (78.0-98.0); Mean Platelet Volume 9.6 fL (7.4-10.4); Platelet Count 222 10x3/uL (130-400); Red Blood Cell (RBC) Count 3.08 mill/uL (4.20-5.40)
[2024-01-13] MEDS: DULoxetine 60 MG CAP PO SCH (23:23)
[2024-01-13] MEDS: Gabapentin 400 MG CAP PO SCH (23:23)
[2024-01-13] MEDS: Dronedarone HCl 400 MG TAB PO SCH (23:24)
[2024-01-13] MEDS: Pantoprazole 40 MG VIAL IVP SCH (23:25)
[2024-01-14 00:09] VITALS: BMI 25.0
[2024-01-14] MEDS: ALPRAZolam 0.25 MG TAB PO PRN (00:26)
[2024-01-14] MEDS: traMADol HCl 50 MG TAB PO PRN (00:26)
[2024-01-14] MEDS: Dronedarone HCl 400 MG TAB PO SCH ×2 (02:20→09:06)
[2024-01-14] MEDS: ADMIXTURE FEE IV SCH (02:20)
[2024-01-14] MEDS: [UNRECOGNIZED DRUG - OTHER] IV SCH (02:20)
[2024-01-14] MEDS: HUM PROTHROMBIN CPLX IV SCH (02:20)
[2024-01-14 04:12] LABS: #Basophils 0.03 10x3/uL (0.0-0.2); %Basophils 0.5 % (0.0-1.0); %Eosinophils 4.9 % (0.0-10.0); %Lymphocytes 16.2 % (21.0-51.0); %Neutrophils 66.3 % (42.0-75.0); Hematocrit 24.3 % (36.0-47.0); Hemoglobin 8.1 g/dL (12.0-16.0); Mean Corpuscular HGB CONC 33.3 g/dL (32.0-36.0); Mean Corpuscular Hemoglobin 26.6 pg (27.0-31.0); Mean Corpuscular Volume 79.7 fL (78.0-98.0); Mean Platelet Volume 9.7 fL (7.4-10.4); Platelet Count 215 10x3/uL (130-400); RBC Distribution Width 16.1 % (11.5-14.5); Red Blood Cell (RBC) Count 3.05 mill/uL (4.20-5.40)
[2024-01-14 04:31] LABS: ALT (SGPT) 8 U/L (8-55); AST (SGOT) 12 U/L (5-34); Albumin 2.5 g/dL (3.4-4.8); Alkaline Phosphatase 42 U/L (40-110); Anion Gap 8 mmol/L (10-20); BUN (Urea Nitrogen) 15 mg/dL (9.8-20.1); Bilirubin, Total 0.4 mg/dL (0.2-1.2); Calc. Creatinine Clearance 43 mL/min (70-130); Calcium 8.1 mg/dL (7.8-10.44); Carbon Dioxide 27 mmol/L (23-31); Chloride 112 mmol/L (98-107); Estimated GFR 50; Glucose 86 mg/dL (83-110); Potassium 3.1 mmol/L (3.5-5.1); Protein, Total 4.5 g/dL (5.8-8.1); Sodium 144 mmol/L (136-145)
[2024-01-14] MEDS: Furosemide 40 MG TAB PO SCH (06:11)
[2024-01-14] MEDS ORDERED: Pantoprazole DR 40 MG TAB PO SCH (09:00)
[2024-01-14] MEDS ORDERED: ENTECAVIR 0.5 MG PO SCH (09:00)
[2024-01-14] MEDS: Oxybutynin 5 MG TAB PO SCH (09:06)
[2024-01-14] MEDS: Potassium Chloride 20 MEQ TAB PO SCH (09:06)
[2024-01-14] MEDS: predniSONE 5 MG TAB PO SCH (09:06)
[2024-01-14] MEDS: Pantoprazole 40 MG VIAL IVP SCH (09:06)
[2024-01-14] MEDS: Ferrous Gluconate 324 MG TAB PO SCH (09:07)
[2024-01-14] MEDS: GoLYTELY 4,000 ml Bottle PO SCH (15:43)
[2024-01-14 20:43] LABS: #Basophils Less than 0.03 10x3/uL (0.0-0.2); %Basophils 0.3 % (0.0-1.0); %Eosinophils 1.7 % (0.0-10.0); %Lymphocytes 15.4 % (21.0-51.0); %Monocytes 9.9 % (0.0-10.0); %Neutrophils 72.1 % (42.0-75.0); Hematocrit 25.5 % (36.0-47.0); Hemoglobin 8.4 g/dL (12.0-16.0); Mean Corpuscular HGB CONC 32.9 g/dL (32.0-36.0); Mean Corpuscular Hemoglobin 27.4 pg (27.0-31.0); Mean Corpuscular Volume 83.1 fL (78.0-98.0); Mean Platelet Volume 8.9 fL (7.4-10.4); Platelet Count 230 10x3/uL (130-400); RBC Distribution Width 16.5 % (11.5-14.5); Red Blood Cell (RBC) Count 3.07 mill/uL (4.20-5.40)
[2024-01-15 07:42] LABS: #Basophils 0.03 10x3/uL (0.0-0.2); %Basophils 0.4 % (0.0-1.0); %Eosinophils 4.4 % (0.0-10.0); %Lymphocytes 15.1 % (21.0-51.0); %Monocytes 13.3 % (0.0-10.0); %Neutrophils 65.6 % (42.0-75.0); Hematocrit 29.1 % (36.0-47.0); Hemoglobin 9.5 g/dL (12.0-16.0); Mean Corpuscular HGB CONC 32.6 g/dL (32.0-36.0); Mean Corpuscular Hemoglobin 26.9 pg (27.0-31.0); Mean Corpuscular Volume 82.4 fL (78.0-98.0); Mean Platelet Volume 9.1 fL (7.4-10.4); Platelet Count 250 10x3/uL (130-400); RBC Distribution Width 16.5 % (11.5-14.5); Red Blood Cell (RBC) Count 3.53 mill/uL (4.20-5.40)
[2024-01-15 08:01] LABS: Anion Gap 14 mmol/L (10-20); BUN (Urea Nitrogen) 10 mg/dL (9.8-20.1); Calc. Creatinine Clearance 52 mL/min (70-130); Calcium 8.5 mg/dL (7.8-10.44); Carbon Dioxide 23 mmol/L (23-31); Chloride 108 mmol/L (98-107); Estimated GFR 64; Glucose 72 mg/dL (83-110); Magnesium 1.9 mg/dL (1.6-2.6); Potassium 3.4 mmol/L (3.5-5.1); Sodium 142 mmol/L (136-145)
[2024-01-15] MEDS ORDERED: Ondansetron HCl/PF 4 MG/2 ML Vial IVP PRN (09:57)
[2024-01-15] MEDS ORDERED: Promethazine HCl 25 MG/ML VIAL IM PRN (09:57)
[2024-01-15] MEDS: Acetaminophen 325 MG TAB PO PRN (13:38)
[2024-01-16 06:07] LABS: #Basophils 0.03 10x3/uL (0.0-0.2); %Basophils 0.4 % (0.0-1.0); %Eosinophils 4.6 % (0.0-10.0); %Lymphocytes 15.1 % (21.0-51.0); %Monocytes 12.8 % (0.0-10.0); %Neutrophils 66.4 % (42.0-75.0); Hematocrit 27.7 % (36.0-47.0); Hemoglobin 8.7 g/dL (12.0-16.0); Mean Corpuscular HGB CONC 31.4 g/dL (32.0-36.0); Mean Corpuscular Hemoglobin 26.7 pg (27.0-31.0); Mean Platelet Volume 9.2 fL (7.4-10.4); Platelet Count 243 10x3/uL (130-400); RBC Distribution Width 16.4 % (11.5-14.5); Red Blood Cell (RBC) Count 3.26 mill/uL (4.20-5.40)
[2024-01-16 06:11] LABS: ALT (SGPT) 11 U/L (8-55); AST (SGOT) 18 U/L (5-34); Albumin 2.6 g/dL (3.4-4.8); Alkaline Phosphatase 45 U/L (40-110); Anion Gap 14 mmol/L (10-20); BUN (Urea Nitrogen) 9 mg/dL (9.8-20.1); Bilirubin, Total 0.4 mg/dL (0.2-1.2); Calc. Creatinine Clearance 55 mL/min (70-130); Calcium 8.3 mg/dL (7.8-10.44); Carbon Dioxide 21 mmol/L (23-31); Chloride 108 mmol/L (98-107); Estimated GFR 68; Globulin 2.6 g/dL (2.4-3.5); Glucose 65 mg/dL (83-110); Magnesium 2.1 mg/dL (1.6-2.6); Potassium 3.9 mmol/L (3.5-5.1); Protein, Total 5.2 g/dL (5.8-8.1); Sodium 139 mmol/L (136-145)
[2024-01-16] MEDS ORDERED: EPINEPHrine 1 MG/ML VIAL ONE (07:18)
[2024-01-16] MEDS ORDERED: Bupivacaine 0.25% HCL 30 ML VIAL ONE (07:18)
[2024-01-16] MEDS ORDERED: Rocuronium Bromide 10 MG/ML (10ML VIAL) ONE (07:36)
[2024-01-16] MEDS ORDERED: Lidocaine 1% PF 5 ML VIAL ONE (07:36)
[2024-01-16] MEDS ORDERED: PROPOFOL 20 ML ONE (07:36)
[2024-01-16] MEDS ORDERED: fentaNYL 50 mcg/mL 1 mL Vial ONE ×2 (07:37→11:32)
[2024-01-16] MEDS ORDERED: Ropivacaine 0.5% HCl/PF (150 MG/30 ML VIAL) ONE (07:45)
[2024-01-16] MEDS ORDERED: Phenylephrine 10 MG/ML VIAL ONE (07:45)
[2024-01-16] MEDS ORDERED: diphenhydrAMINE 50 MG/ML VIAL IVP PRN (07:54)
[2024-01-16] MEDS ORDERED: Naloxone HCl 0.4 mg/ml Vial IV PRN (07:54)
[2024-01-16] MEDS ORDERED: FENTANYL 500 MCG/10 ML VIAL 2,000 MCG in Sodium Chloride 0.9% 60 ML IV PRN (07:54)
[2024-01-16] MEDS ORDERED: Communication Order-Pharmacy FS SCH (08:00)
[2024-01-16] MEDS ORDERED: Sodium Chloride 0.9% 100 ML ONE (08:09)
[2024-01-16] MEDS ORDERED: cefOXitin 2 GM VIAL ONE (08:09)
[2024-01-16] MEDS ORDERED: HYDROmorphone 0.5 MG/0.5 ML SYRINGE ONE (08:11)
[2024-01-16] MEDS ORDERED: Dexmedetomidine 200 MCG/2 ML VIAL ONE (08:13)
[2024-01-16] MEDS ORDERED: Dexamethasone 20 MG/5 ML VIAL ONE (08:34)
[2024-01-16] MEDS ORDERED: SUGAMMADEX SODIUM 200 MG/2 ML VIAL ONE (10:23)
[2024-01-16] MEDS ORDERED: Ondansetron PF 4 MG/2 ML Vial ONE (10:23)
[2024-01-16] MEDS ORDERED: Lidocaine-Prilocaine 2.5% Cream 5 GM TUBE ONE (10:56)
[2024-01-16] MEDS ORDERED: Ketorolac Tromethamine 30 MG (1 mL) VIAL IVP SCH (12:00)
[2024-01-16] MEDS ORDERED: hydrALAZINE 20 MG/ML VIAL ONE (12:01)
[2024-01-16] MEDS ORDERED: Acetaminophen 325 MG TAB PO SCH (13:00)
[2024-01-16] MEDS: Potassium Chloride 20 MEQ in Lactated Ringer's 1,000 ML IV SCH ×2 (13:52→14:42)
[2024-01-16] MEDS: Acetaminophen 500 MG TAB PO SCH (14:04)
[2024-01-16] MEDS ORDERED: cefOXitin 2 GM in Sodium Chloride 0.9% 100 ML IVPB SCH (15:15)
[2024-01-16] MEDS ORDERED: ALPRAZolam 0.25 MG TAB PO SCH (21:00)
[2024-01-17 05:30] LABS: #Basophils Less than 0.03 10x3/uL (0.0-0.2); #Eosinphils Less than 0.03 10x3/uL (0.0-0.7); %Basophils 0.1 % (0.0-1.0); %Lymphocytes 4.5 % (21.0-51.0); %Monocytes 7.7 % (0.0-10.0); %Neutrophils 87.3 % (42.0-75.0); Hematocrit 27.8 % (36.0-47.0); Hemoglobin 8.8 g/dL (12.0-16.0); Mean Corpuscular HGB CONC 31.7 g/dL (32.0-36.0); Mean Corpuscular Hemoglobin 26.6 pg (27.0-31.0); Mean Platelet Volume 9.3 fL (7.4-10.4); Platelet Count 247 10x3/uL (130-400); RBC Distribution Width 16.7 % (11.5-14.5); Red Blood Cell (RBC) Count 3.31 mill/uL (4.20-5.40)
[2024-01-17 06:00] LABS: ALT (SGPT) 12 U/L (8-55); AST (SGOT) 14 U/L (5-34); Albumin 2.4 g/dL (3.4-4.8); Alkaline Phosphatase 41 U/L (40-110); Anion Gap 11 mmol/L (10-20); BUN (Urea Nitrogen) 12 mg/dL (9.8-20.1); Bilirubin, Total 0.5 mg/dL (0.2-1.2); Calc. Creatinine Clearance 56 mL/min (70-130); Calcium 8.4 mg/dL (7.8-10.44); Carbon Dioxide 24 mmol/L (23-31); Chloride 110 mmol/L (98-107); Estimated GFR 69; Globulin 2.2 g/dL (2.4-3.5); Glucose 98 mg/dL (83-110); Potassium 4.3 mmol/L (3.5-5.1); Protein, Total 4.6 g/dL (5.8-8.1); Sodium 141 mmol/L (136-145)
[2024-01-17] MEDS ORDERED: Pantoprazole DR 40 MG TAB PO SCH (09:00)
[2024-01-17] MEDS: Losartan 25 MG TAB PO SCH (09:46)
[2024-01-18 04:51] LABS: #Basophils Less than 0.03 10x3/uL (0.0-0.2); %Basophils 0.2 % (0.0-1.0); %Eosinophils 0.8 % (0.0-10.0); %Lymphocytes 6.6 % (21.0-51.0); %Monocytes 7.5 % (0.0-10.0); %Neutrophils 84.5 % (42.0-75.0); Hematocrit 25.6 % (36.0-47.0); Hemoglobin 7.9 g/dL (12.0-16.0); Mean Corpuscular HGB CONC 30.9 g/dL (32.0-36.0); Mean Corpuscular Hemoglobin 27.1 pg (27.0-31.0); Mean Corpuscular Volume 87.7 fL (78.0-98.0); Mean Platelet Volume 9.1 fL (7.4-10.4); Platelet Count 217 10x3/uL (130-400); RBC Distribution Width 16.9 % (11.5-14.5); Red Blood Cell (RBC) Count 2.92 mill/uL (4.20-5.40)
[2024-01-18 05:03] LABS: ALT (SGPT) 11 U/L (8-55); AST (SGOT) 10 U/L (5-34); Albumin 2.3 g/dL (3.4-4.8); Alkaline Phosphatase 41 U/L (40-110); Anion Gap 9 mmol/L (10-20); BUN (Urea Nitrogen) 10 mg/dL (9.8-20.1); Bilirubin, Total 0.5 mg/dL (0.2-1.2); Calc. Creatinine Clearance 58 mL/min (70-130); Calcium 8.4 mg/dL (7.8-10.44); Carbon Dioxide 24 mmol/L (23-31); Chloride 111 mmol/L (98-107); Estimated GFR 72; Globulin 2.1 g/dL (2.4-3.5); Glucose 84 mg/dL (83-110); Potassium 4.7 mmol/L (3.5-5.1); Protein, Total 4.4 g/dL (5.8-8.1); Sodium 139 mmol/L (136-145)
[2024-01-18] MEDS: Enoxaparin 40 MG (0.4 mL) SYRINGE SC SCH (08:50)
[2024-01-18] MEDS ORDERED: Loperamide HCl 2 MG CAP PO PRN (08:57)
[2024-01-18] MEDS ORDERED: Morphine 2 MG/ML VIAL SLOW IVP PRN (10:28)
[2024-01-18] MEDS ORDERED: Acetaminophen 500 MG TAB PO SCH (12:02)
[2024-01-18] MEDS: Acetaminophen 325 MG TAB PO SCH (12:56)
[2024-01-18] MEDS: Acetaminophen/Codeine 30-300mg Tablet PO SCH (12:57)
[2024-01-18] MEDS: traMADol HCl 50 MG TAB PO SCH (12:58)
[2024-01-18] MEDS: ALPRAZolam 0.5 MG TAB PO SCH (22:14)
[2024-01-19] MEDS: Ibuprofen 600 MG TAB PO PRN (02:26)
[2024-01-19] MEDS: traMADol HCl 50 MG TAB PO PRN (02:27)
[2024-01-19 06:04] VITALS: BP 133/73; TEMP 98
[2024-01-19 08:02] LABS: Anion Gap 9 mmol/L (10-20); BUN (Urea Nitrogen) 12 mg/dL (9.8-20.1); Calc. Creatinine Clearance 56 mL/min (70-130); Calcium 8.2 mg/dL (7.8-10.44); Carbon Dioxide 24 mmol/L (23-31); Chloride 108 mmol/L (98-107); Estimated GFR 69; Glucose 76 mg/dL (83-110); Magnesium 1.8 mg/dL (1.6-2.6); Phosphorus 2.6 mg/dL (2.3-4.7); Sodium 137 mmol/L (136-145)
[2024-01-19] MEDS: Pantoprazole DR 40 MG TAB PO SCH (10:08)
[2024-01-19] MEDS: Magnesium 2 GM/50 ML(in water) 2 GM in Premix 1 BAG IVPB SCH (10:10)
== END 2024-01-19 14:22 | DRG 330 ==
LOC: ERS 11:42 → ERHOLD 16:00 → OBSVTOIN 16:25 → 2NO 21:29 → SURG B 01-16 13:31
PROVIDERS: ADMIT Internal Medicine; ATTEND Internal Medicine
PROC: 30233N1 Transfusion of Nonautologous Red Blood Cells into Peripheral Vein, Percutaneous Approach (ICD-10-PCS; 2024-01-13)
PROC: 0DB68ZZ Excision of Stomach, Via Natural or Artificial Opening Endoscopic (ICD-10-PCS; 2024-01-15)
PROC: 0DBM8ZZ Excision of Descending Colon, Via Natural or Artificial Opening Endoscopic (ICD-10-PCS; 2024-01-15)
PROC: 0DBL8ZZ Excision of Transverse Colon, Via Natural or Artificial Opening Endoscopic (ICD-10-PCS; 2024-01-15)
PROC: 0D1B0Z4 Bypass Ileum to Cutaneous, Open Approach (ICD-10-PCS; principal; 2024-01-16)
PROC: 0DBN0ZZ Excision of Sigmoid Colon, Open Approach (ICD-10-PCS; 2024-01-16)
PROC: 06BY0ZC Excision of Hemorrhoidal Plexus, Open Approach (ICD-10-PCS; 2024-01-16)
PROC: 0DQP0ZZ Repair Rectum, Open Approach (ICD-10-PCS; 2024-01-16)
DX: K64.9 Unspecified hemorrhoids (principal); B18.1 Chronic viral hepatitis B without delta-agent; D62 Acute posthemorrhagic anemia; I48.20 Chronic atrial fibrillation, unspecified; N17.9 Acute kidney failure, unspecified; M06.9 Rheumatoid arthritis, unspecified; D50.9 Iron deficiency anemia, unspecified; D63.8 Anemia in other chronic diseases classified elsewhere; G62.9 Polyneuropathy, unspecified; K62.3 Rectal prolapse; F41.9 Anxiety disorder, unspecified; K21.9 Gastro-esophageal reflux disease without esophagitis; Z79.52 Long term (current) use of systemic steroids; Z88.1 Allergy status to other antibiotic agents; Z79.899 Other long term (current) drug therapy; Z79.01 Long term (current) use of anticoagulants; N18.2 Chronic kidney disease, stage 2 (mild); E88.09 Other disorders of plasma-protein metabolism, not elsewhere classified
CPT/HCPCS: 36415; 36430; 71045; 80048; 80053; 81001; 83605; 83690; 83735; 84100; 84484; 85025; 85610; 85730; 86850; 86900; 86901; 87040; 87086; 88304; 88305; 88307; 93005; 96374; 97139; A4314; A4649; C1713; C1751; C1776; C1889; J0171; J0360; J0665; J0694; J0696; J1100; J1170; J1650; J2371; J2405; J2470; J2704; J2795; J3010; J3475; J3480; J7120; J7168; J7512; P9016

== ENCOUNTER 2024-01-28 13:58 | Emergency (ER) | payer MEDICARE | END 2024-01-28 16:44 | disposition home or self-care (01) | LOC: ERS 13:58 | DX: Z45.2 Encounter for adjustment and management of vascular access device (principal); I48.91 Unspecified atrial fibrillation; I11.0 Hypertensive heart disease with heart failure; I50.9 Heart failure, unspecified | CPT/HCPCS: 99283 ==

== ENCOUNTER 2024-02-24 15:58 | Inpatient (IN) | payer MEDICARE ==
[~2024-02-24 15:58] MED LIST: Iopamidol-370 76% 500 ML MDV (1 ML CHARGE) ONE
[2024-02-24 17:17] LABS: #Basophils 0.05 10x3/uL (0.0-0.2); %Basophils 0.6 % (0.0-1.0); %Eosinophils 6.3 % (0.0-10.0); %Lymphocytes 16.9 % (21.0-51.0); %Neutrophils 64.7 % (42.0-75.0); Hematocrit 27.2 % (36.0-47.0); Hemoglobin 8.7 g/dL (12.0-16.0); Mean Corpuscular Hemoglobin 25.9 pg (27.0-31.0); Mean Platelet Volume 9.6 fL (7.4-10.4); Platelet Count 310 10x3/uL (130-400); RBC Distribution Width 16.6 % (11.5-14.5); Red Blood Cell (RBC) Count 3.36 mill/uL (4.20-5.40)
[2024-02-24 17:51] LABS: ALT (SGPT) 48 U/L (8-55); AST (SGOT) 58 U/L (5-34); Albumin 3.2 g/dL (3.4-4.8); Alkaline Phosphatase 88 U/L (40-110); Anion Gap 16 mmol/L (10-20); BUN (Urea Nitrogen) 19 mg/dL (9.8-20.1); Bilirubin, Total 0.4 mg/dL (0.2-1.2); Calc. Creatinine Clearance 0 mL/min (70-130); Calcium 9.3 mg/dL (7.8-10.44); Carbon Dioxide 19 mmol/L (23-31); Chloride 107 mmol/L (98-107); Estimated GFR 38; Globulin 2.9 g/dL (2.4-3.5); Glucose 96 mg/dL (83-110); Lipase 16 U/L (8-78); Potassium 3.9 mmol/L (3.5-5.1); Protein, Total 6.1 g/dL (5.8-8.1); Sodium 138 mmol/L (136-145)
[2024-02-24] MEDS ORDERED: Ondansetron ODT 4 MG TAB PO PRN (18:40)
[2024-02-24] MEDS ORDERED: traMADol HCl 50 MG TAB PO PRN ×2 (18:40→19:53)
[2024-02-24] MEDS ORDERED: Ondansetron PF 4 MG/2 ML Vial IVP PRN (18:40)
[2024-02-24] MEDS ORDERED: Senokot S 8.6-50 MG TAB PO PRN (18:40)
[2024-02-24] MEDS ORDERED: Acetaminophen 325 MG TAB PO PRN (18:40)
[2024-02-24] MEDS ORDERED: HYDROcodone/Acetaminophen 5/325 mg Tablet PO PRN (18:50)
[2024-02-24] MEDS ORDERED: Morphine 2 MG/ML VIAL SLOW IVP PRN (18:50)
[2024-02-24 18:51] LABS: Bacteria/HPF None Seen HPF (None Seen); Bilirubin Negative (Negative); Blood, Urine Negative (Negative); CAUTI Indications for Culture Dysuria,urgency,freq; Clarity Clear (Clear); Glucose, Urine (Dipstick) Normal (Negative); Ketone, Urine Negative (Negative); Leukocyte Negative Leu/uL (Negative); Nitrite Negative (Negative); Protein, Urine (Dipstick) Negative (Neg-Trace); RBC/HPF 0-3 HPF (0-3); Specific Gravity, Urine 1.014 (1.002-1.036); Squamous Epithelial None Seen HPF (0-3); Urobilinogen Normal mg/dL (Less than 2); WBC/HPF 0-3 HPF (0-3); pH, Urine 5.5 (5.0-9.0)
[2024-02-24 18:53] LABS: Urine Culture Reflex No No
[2024-02-24] MEDS ORDERED: Morphine 4 MG/ML VIAL ONE (19:11)
[2024-02-24] MEDS ORDERED: ALPRAZolam 0.25 MG TAB PO PRN (19:53)
[2024-02-24] MEDS ORDERED: Morphine 4 MG/ML VIAL SLOW IVP PRN (19:53)
[2024-02-24] MEDS: DULoxetine 60 MG CAP PO SCH (21:45)
[2024-02-24] MEDS: Gabapentin 400 MG CAP PO SCH (21:46)
[2024-02-24] MEDS: Acetaminophen 500 MG TAB PO SCH (21:46)
[2024-02-24] MEDS: Lactated Ringer's 1,000 ML IV SCH (21:47)
[2024-02-24 22:22] VITALS: BMI 22.2
[2024-02-25 04:29] VITALS: BP 123/57; TEMP 99.3
[2024-02-25 05:47] LABS: #Basophils 0.04 10x3/uL (0.0-0.2); %Basophils 0.8 % (0.0-1.0); %Eosinophils 11.1 % (0.0-10.0); %Lymphocytes 15.4 % (21.0-51.0); %Monocytes 13.2 % (0.0-10.0); %Neutrophils 58.7 % (42.0-75.0); Hematocrit 28.2 % (36.0-47.0); Hemoglobin 8.5 g/dL (12.0-16.0); Mean Corpuscular HGB CONC 30.1 g/dL (32.0-36.0); Mean Corpuscular Hemoglobin 25.5 pg (27.0-31.0); Mean Corpuscular Volume 84.7 fL (78.0-98.0); Mean Platelet Volume 10.1 fL (7.4-10.4); Platelet Count 247 10x3/uL (130-400); Red Blood Cell (RBC) Count 3.33 mill/uL (4.20-5.40)
[2024-02-25 06:31] LABS: Anion Gap 14 mmol/L (10-20); BUN (Urea Nitrogen) 17 mg/dL (9.8-20.1); Calc. Creatinine Clearance 31 mL/min (70-130); Calcium 8.7 mg/dL (7.8-10.44); Carbon Dioxide 23 mmol/L (23-31); Chloride 106 mmol/L (98-107); Estimated GFR 39; Glucose 86 mg/dL (83-110); Potassium 3.6 mmol/L (3.5-5.1); Sodium 139 mmol/L (136-145)
[2024-02-25] MEDS ORDERED: fentaNYL PF 100 MCG/2 ML SYRINGE ONE (06:51)
[2024-02-25] MEDS ORDERED: ePHEDrine Sulfate 50 MG/10 ML VIAL ONE (06:51)
[2024-02-25] MEDS ORDERED: Rocuronium Bromide 10 MG/ML (10ML VIAL) ONE (06:51)
[2024-02-25] MEDS ORDERED: PROPOFOL 0 ML ONE (06:51)
[2024-02-25] MEDS ORDERED: Ondansetron PF 4 MG/2 ML Vial ONE (06:51)
[2024-02-25] MEDS ORDERED: Lidocaine 1% PF 5 ML VIAL ONE (06:51)
[2024-02-25] MEDS ORDERED: Dexamethasone 4 mg/ml Vial ONE (06:51)
[2024-02-25] MEDS ORDERED: Vasopressin 20 UNITS/ML VIAL ONE (06:52)
[2024-02-25] MEDS ORDERED: Bupivacaine 0.25% HCL 30 ML VIAL ONE (07:09)
[2024-02-25] MEDS ORDERED: EPINEPHrine 1 MG/ML VIAL ONE (07:09)
[2024-02-25] MEDS: Oxybutynin 5 MG TAB PO SCH (09:43)
[2024-02-25] MEDS: Pantoprazole DR 40 MG TAB PO SCH (09:43)
[2024-02-25] MEDS: Calcitriol 0.25 MCG CAP PO SCH (09:43)
[2024-02-25] MEDS: Losartan 25 MG TAB PO SCH (09:43)
[2024-02-25] MEDS: Spironolactone 25 MG TAB PO SCH (09:44)
[2024-02-25] MEDS: Dronedarone HCl 400 MG TAB PO SCH (09:44)
== END 2024-02-25 18:17 | disposition home or self-care (01) | DRG 395 ==
LOC: ERS 15:58 → SURG A 18:47 → OBSVTOIN 18:47
PROVIDERS: ADMIT Specialist; ATTEND Specialist
PROC: 3E033XZ Introduction of Vasopressor into Peripheral Vein, Percutaneous Approach (ICD-10-PCS; principal; 2024-02-25)
DX: K42.9 Umbilical hernia without obstruction or gangrene (principal); M06.9 Rheumatoid arthritis, unspecified; D64.9 Anemia, unspecified; I50.9 Heart failure, unspecified; I11.0 Hypertensive heart disease with heart failure; Z98.890 Other specified postprocedural states; F41.9 Anxiety disorder, unspecified; F32.A Depression, unspecified; K62.3 Rectal prolapse; E78.5 Hyperlipidemia, unspecified; Z88.1 Allergy status to other antibiotic agents; Z79.899 Other long term (current) drug therapy; Z79.01 Long term (current) use of anticoagulants; I48.0 Paroxysmal atrial fibrillation
CPT/HCPCS: 36415; 74177; 80048; 80053; 81001; 83605; 83690; 85025; 96374; 96375; 96376; J0171; J0665; J1100; J2272; J2405; J2704; J7120; Q9967

== ENCOUNTER 2024-03-01 10:15 | Outpatient (CLI) | payer MEDICARE ==
[2024-03-01] MEDS ORDERED: MD-Gastroview 120 ML BOT ONE (11:16)
== END 2024-03-01 10:16 | disposition home or self-care (01) ==
LOC: RAD 10:15
PROVIDERS: ATTEND Specialist
DX: K62.3 Rectal prolapse (principal); Z93.2 Ileostomy status; K91.89 Other postprocedural complications and disorders of digestive system; Z98.0 Intestinal bypass and anastomosis status
CPT/HCPCS: 72192; 74280; Q9963

== ENCOUNTER 2024-03-30 08:38 | Outpatient (CLI) | payer MEDICARE ==
[2024-03-30 10:01] LABS: #Basophils 0.05 10x3/uL (0.0-0.2); %Basophils 0.7 % (0.0-1.0); %Eosinophils 1.9 % (0.0-10.0); %Lymphocytes 15.1 % (21.0-51.0); %Monocytes 11.6 % (0.0-10.0); %Neutrophils 69.6 % (42.0-75.0); Hemoglobin 8.8 g/dL (12.0-16.0); Mean Corpuscular HGB CONC 30.3 g/dL (32.0-36.0); Mean Corpuscular Hemoglobin 25.7 pg (27.0-31.0); Mean Corpuscular Volume 84.5 fL (78.0-98.0); Mean Platelet Volume 9.2 fL (7.4-10.4); Platelet Count 318 10x3/uL (130-400); RBC Distribution Width 18.1 % (11.5-14.5); Red Blood Cell (RBC) Count 3.43 mill/uL (4.20-5.40)
[2024-03-30 10:21] LABS: Anion Gap 12 mmol/L (10-20); BUN (Urea Nitrogen) 18 mg/dL (9.8-20.1); Calc. Creatinine Clearance 0 mL/min (70-130); Calcium 9.1 mg/dL (7.8-10.44); Carbon Dioxide 19 mmol/L (23-31); Chloride 114 mmol/L (98-107); Estimated GFR 45; Glucose 89 mg/dL (83-110); Potassium 4.8 mmol/L (3.5-5.1); Sodium 140 mmol/L (136-145)
[2024-03-30 10:24] LABS: INR-International Normal Ratio 1.4; PTT 29.9 sec (22.9-36.1); Prothrombin Time 17.2 sec (12.0-14.7)
[2024-03-30 10:27] LABS: ALT (SGPT) 20 U/L (8-55); AST (SGOT) 18 U/L (5-34); Albumin 3.3 g/dL (3.4-4.8); Alkaline Phosphatase 87 U/L (40-110); Bilirubin, Direct 0.1 mg/dL (0.1-0.3); Bilirubin, Total 0.3 mg/dL (0.2-1.2)
== END 2024-03-30 08:39 | disposition home or self-care (01) ==
LOC: LABBT 08:38
PROVIDERS: ATTEND Specialist
DX: Z01.812 Encounter for preprocedural laboratory examination (principal)
CPT/HCPCS: 80048; 80076; 85025; 85610; 85730

== ENCOUNTER 2024-04-03 05:50 | Inpatient (IN) | payer MEDICARE ==
[2024-03-30 08:56] VITALS: BMI 23.0
[2024-04-03] MEDS ORDERED: Heparin 5,000 UNITS/ML VIAL ONE (07:01)
[2024-04-03] MEDS ORDERED: fentaNYL PF 100 MCG/2 ML SYRINGE ONE (07:27)
[2024-04-03] MEDS ORDERED: PROPOFOL 20 ML ONE (07:27)
[2024-04-03] MEDS ORDERED: CEFAZOLIN 2 GM VIAL ONE (07:34)
[2024-04-03] MEDS ORDERED: Lidocaine 1% PF 5 ML VIAL ONE (07:50)
[2024-04-03] MEDS ORDERED: Ondansetron PF 4 MG/2 ML Vial ONE (07:50)
[2024-04-03] MEDS ORDERED: Dexamethasone 20 MG/5 ML VIAL ONE (07:50)
[2024-04-03] MEDS ORDERED: Rocuronium Bromide 10 MG/ML (10ML VIAL) ONE (07:50)
[2024-04-03] MEDS ORDERED: Bupivacaine PF 0.5% 30 ML VIAL ONE (08:21)
[2024-04-03] MEDS ORDERED: EPINEPHrine 1 MG/ML VIAL ONE (08:21)
[2024-04-03] MEDS ORDERED: Morphine 2 MG/ML VIAL SLOW IVP PRN (09:09)
[2024-04-03] MEDS ORDERED: Ketorolac Tromethamine 30 MG (1 mL) VIAL IVP PRN (09:23)
[2024-04-03] MEDS ORDERED: predniSONE 5 MG TAB PO PRN (09:24)
[2024-04-03] MEDS ORDERED: SUGAMMADEX SODIUM 200 MG/2 ML VIAL ONE (09:33)
[2024-04-03] MEDS ORDERED: Glycopyrrolate 0.2 MG/ML 5 ML SYRINGE ONE (09:35)
[2024-04-03] MEDS ORDERED: NEOSTIGMINE 3 MG/3 ML SYRINGE ONE (09:35)
[2024-04-03] MEDS ORDERED: Ketorolac Tromethamine 30 MG (1 mL) VIAL ONE (10:13)
[2024-04-03] MEDS: Sodium Chloride 0.45% 1,000 ML IV SCH (12:45)
[2024-04-03] MEDS: Ketorolac Tromethamine 30 MG (1 mL) VIAL IVP SCH ×3 (12:45→18:35)
[2024-04-03] MEDS: Morphine 4 MG/ML VIAL SLOW IVP PRN (12:46)
[2024-04-03] MEDS: TETANUS, DIPHTHERIA TOX,ADULT (TDVAX) 0.5 ML VIAL IM ONE (12:47)
[2024-04-03] MEDS: Acetaminophen 500 MG TAB PO SCH (12:53)
[2024-04-03] MEDS: Gabapentin 400 MG CAP PO SCH (15:09)
[2024-04-03] MEDS: Dronedarone HCl 400 MG TAB PO SCH (16:35)
[2024-04-03] MEDS: Enoxaparin 40 MG (0.4 mL) SYRINGE SC SCH (21:47)
[2024-04-03] MEDS: ALPRAZolam 0.25 MG TAB PO SCH (21:49)
[2024-04-04 06:06] LABS: ALT (SGPT) 13 U/L (8-55); AST (SGOT) 17 U/L (5-34); Albumin 2.8 g/dL (3.4-4.8); Alkaline Phosphatase 62 U/L (40-110); Anion Gap 9 mmol/L (10-20); BUN (Urea Nitrogen) 32 mg/dL (9.8-20.1); Bilirubin, Total 0.2 mg/dL (0.2-1.2); Calc. Creatinine Clearance 34 mL/min (70-130); Calcium 8.3 mg/dL (7.8-10.44); Carbon Dioxide 16 mmol/L (23-31); Chloride 116 mmol/L (98-107); Estimated GFR 42; Globulin 2.1 g/dL (2.4-3.5); Glucose 88 mg/dL (83-110); Potassium 4.9 mmol/L (3.5-5.1); Protein, Total 4.9 g/dL (5.8-8.1); Sodium 136 mmol/L (136-145)
[2024-04-04] MEDS: Lactated Ringer's 1,000 ML IV SCH ×2 (06:36→07:53)
[2024-04-04] MEDS: traMADol HCl 50 MG TAB PO PRN ×2 (07:53→21:26)
[2024-04-04] MEDS: Losartan 25 MG TAB PO SCH (09:28)
[2024-04-04] MEDS: Pantoprazole DR 40 MG TAB PO SCH (09:28)
[2024-04-04] MEDS: DULoxetine 60 MG CAP PO SCH (09:29)
[2024-04-04] MEDS: Calcitriol 0.25 MCG CAP PO SCH (09:30)
[2024-04-04] MEDS: Oxybutynin 5 MG TAB PO SCH (09:30)
[2024-04-04 12:21] VITALS: BMI 23.0
[2024-04-04] MEDS: traMADol HCl 50 MG TAB PO SCH (15:25)
[2024-04-04] MEDS: Ondansetron PF 4 MG/2 ML Vial IVP PRN (19:00)
[2024-04-05 05:37] LABS: #Basophils 0.04 10x3/uL (0.0-0.2); %Basophils 0.4 % (0.0-1.0); %Monocytes 8.8 % (0.0-10.0); Hemoglobin 8.1 g/dL (12.0-16.0)
[2024-04-05 05:56] LABS: %Eosinophils 2.1 % (0.0-10.0); %Lymphocytes 7.7 % (21.0-51.0); %Neutrophils 80.3 % (42.0-75.0); Hematocrit 26.3 % (36.0-47.0); Mean Corpuscular HGB CONC 30.8 g/dL (32.0-36.0); Mean Corpuscular Hemoglobin 26.6 pg (27.0-31.0); Mean Corpuscular Volume 86.2 fL (78.0-98.0); Mean Platelet Volume 9.1 fL (7.4-10.4); Platelet Count 265 10x3/uL (130-400); RBC Distribution Width 18.7 % (11.5-14.5); Red Blood Cell (RBC) Count 3.05 mill/uL (4.20-5.40)
[2024-04-05 06:31] LABS: ALT (SGPT) 9 U/L (8-55); AST (SGOT) 15 U/L (5-34); Albumin 2.7 g/dL (3.4-4.8); Alkaline Phosphatase 70 U/L (40-110); Anion Gap 11 mmol/L (10-20); BUN (Urea Nitrogen) 28 mg/dL (9.8-20.1); Bilirubin, Total 0.2 mg/dL (0.2-1.2); Calc. Creatinine Clearance 32 mL/min (70-130); Calcium 8.5 mg/dL (7.8-10.44); Carbon Dioxide 16 mmol/L (23-31); Chloride 115 mmol/L (98-107); Estimated GFR 39; Globulin 2.1 g/dL (2.4-3.5); Glucose 69 mg/dL (83-110); Magnesium 2.1 mg/dL (1.6-2.6); Potassium 4.3 mmol/L (3.5-5.1); Protein, Total 4.8 g/dL (5.8-8.1); Sodium 138 mmol/L (136-145)
[2024-04-05] MEDS: Polyethylene Glycol 3350 17 GM Packet PO SCH (09:49)
[2024-04-05] MEDS: Lactated Ringer's 1,000 ML IV SCH (21:00)
[2024-04-05] MEDS: Enoxaparin 30 MG (0.3 mL) SYRINGE SC SCH (21:01)
[2024-04-06] MEDS: Morphine 2 MG/ML VIAL SLOW IVP PRN (08:23)
[2024-04-06] MEDS: Pantoprazole 40 MG VIAL IVP SCH (08:26)
[2024-04-06] MEDS: Morphine 4 MG/ML VIAL SLOW IVP PRN (20:47)
[2024-04-07] MEDS: Acetaminophen 325 MG TAB PO PRN (15:40)
[2024-04-07] MEDS: traMADol HCl 50 MG TAB PO PRN (15:40)
[2024-04-07] MEDS: HYDROcodone/Acetaminophen 5/325 mg Tablet PO PRN (18:18)
[2024-04-08] MEDS: Ondansetron ODT 4 MG TAB PO PRN (05:05)
[2024-04-08] MEDS: Bisacodyl 10 MG SUPP PR SCH (10:04)
[2024-04-08] MEDS ORDERED: D5 LR w/20 mEq KCL 1,000 ML IV SCH (15:15)
[2024-04-08] MEDS: Bisacodyl 10 MG SUPP PR PRN (16:59)
[2024-04-09] MEDS: Magnesium Citrate 300 ML BOT PO SCH (08:54)
[2024-04-10] MEDS: Ondansetron PF 4 MG/2 ML Vial IVP SCH (01:23)
[2024-04-10] MEDS: Morphine 2 MG/ML VIAL SLOW IVP SCH (06:40)
[2024-04-10 08:01] LABS: #Basophils Less than 0.03 10x3/uL (0.0-0.2); %Basophils 0.3 % (0.0-1.0); %Eosinophils 2.4 % (0.0-10.0); %Lymphocytes 11.8 % (21.0-51.0); %Monocytes 11.2 % (0.0-10.0); %Neutrophils 72.5 % (42.0-75.0); Hematocrit 24.7 % (36.0-47.0); Hemoglobin 7.9 g/dL (12.0-16.0); Mean Corpuscular Hemoglobin 26.3 pg (27.0-31.0); Mean Corpuscular Volume 82.3 fL (78.0-98.0); Mean Platelet Volume 9.1 fL (7.4-10.4); Platelet Count 325 10x3/uL (130-400); RBC Distribution Width 19.3 % (11.5-14.5)
[2024-04-10] MEDS: Pantoprazole DR 40 MG TAB PO SCH (08:58)
[2024-04-10] MEDS: hydrALAZINE 20 MG/ML VIAL SLOW IVP PRN (12:07)
[2024-04-11 05:58] LABS: Anion Gap 9 mmol/L (10-20); BUN (Urea Nitrogen) 5 mg/dL (9.8-20.1); Calc. Creatinine Clearance 60 mL/min (70-130); Carbon Dioxide 21 mmol/L (23-31); Chloride 111 mmol/L (98-107); Estimated GFR 84; Glucose 94 mg/dL (83-110); Potassium 2.9 mmol/L (3.5-5.1); Sodium 138 mmol/L (136-145)
[2024-04-11] MEDS ORDERED: Electrolyte Replacement Protocol FS PRN (08:00)
[2024-04-11] MEDS: Potassium Chloride 20 MEQ TAB PO SCH ×2 (08:38→16:22)
[2024-04-11] MEDS: Enoxaparin 40 MG (0.4 mL) SYRINGE SC SCH (19:30)
[2024-04-12 08:12] VITALS: BP 165/83; TEMP 98.3
== END 2024-04-12 12:23 | disposition home or self-care (01) | DRG 330 ==
LOC: SURG A 05:50 → SURG B 12:50
PROVIDERS: ADMIT Specialist; ATTEND Specialist
PROC: 0DBB0ZZ Excision of Ileum, Open Approach (ICD-10-PCS; principal; 2024-04-03)
DX: Z43.2 Encounter for attention to ileostomy (principal); K56.7 Ileus, unspecified; N17.9 Acute kidney failure, unspecified; Z87.19 Personal history of other diseases of the digestive system; Z79.01 Long term (current) use of anticoagulants; I10 Essential (primary) hypertension; M06.9 Rheumatoid arthritis, unspecified; I48.0 Paroxysmal atrial fibrillation; Z79.899 Other long term (current) drug therapy
CPT/HCPCS: 36415; 80048; 80053; 83735; 85025; C1713; J0171; J0360; J0665; J1100; J1644; J1650; J1885; J2272; J2405; J2470; J2704; J3480; J7120; Q0162

== ENCOUNTER 2024-05-01 10:18 | Emergency (ER) | payer MEDICARE ==
[2024-05-01] MEDS ORDERED: Ondansetron PF 4 MG/2 ML Vial ONE (11:05)
[2024-05-01] MEDS ORDERED: Iopamidol-370 76% 500 ML MDV (1 ML CHARGE) ONE (11:09)
[2024-05-01 11:33] LABS: #Basophils 0.03 10x3/uL (0.0-0.2); %Basophils 0.4 % (0.0-1.0); %Eosinophils 0.4 % (0.0-10.0); %Lymphocytes 10.1 % (21.0-51.0); %Monocytes 7.9 % (0.0-10.0); Hemoglobin 7.6 g/dL (12.0-16.0); Mean Corpuscular HGB CONC 31.7 g/dL (32.0-36.0); Mean Corpuscular Hemoglobin 26.4 pg (27.0-31.0); Mean Corpuscular Volume 83.3 fL (78.0-98.0); Platelet Count 380 10x3/uL (130-400); RBC Distribution Width 16.3 % (11.5-14.5); Red Blood Cell (RBC) Count 2.88 mill/uL (4.20-5.40)
[2024-05-01 11:55] LABS: ALT (SGPT) 12 U/L (8-55); AST (SGOT) 19 U/L (5-34); Albumin 2.8 g/dL (3.4-4.8); Alkaline Phosphatase 53 U/L (40-110); Anion Gap 14 mmol/L (10-20); BUN (Urea Nitrogen) 11 mg/dL (9.8-20.1); Bilirubin, Total 0.4 mg/dL (0.2-1.2); Calc. Creatinine Clearance 0 mL/min (70-130); Calcium 8.5 mg/dL (7.8-10.44); Carbon Dioxide 25 mmol/L (23-31); Chloride 107 mmol/L (98-107); Estimated GFR 70; Globulin 2.3 g/dL (2.4-3.5); Glucose 118 mg/dL (83-110); Lipase 20 U/L (8-78); Potassium 2.9 mmol/L (3.5-5.1); Protein, Total 5.1 g/dL (5.8-8.1); Sodium 143 mmol/L (136-145)
[2024-05-01 12:00] LABS: Troponin I 0.016 ng/mL (< 0.028)
[2024-05-01 12:18] LABS: Bilirubin Negative (Negative); Blood, Urine Negative (Negative); CAUTI Indications for Culture Alt mental st,lethar; Clarity Turbid (Clear); Glucose, Urine (Dipstick) Normal (Negative); Ketone, Urine Negative (Negative); Leukocyte 75 Leu/uL (Negative); Nitrite Negative (Negative); Protein, Urine (Dipstick) Negative (Neg-Trace); RBC/HPF 0-3 HPF (0-3); Specific Gravity, Urine 1.007 (1.002-1.036); Squamous Epithelial 0-3 HPF (0-3); Transitional Epithelial 0-3 HPF (None Seen); Urobilinogen Normal mg/dL (Less than 2); pH, Urine 7.5 (5.0-9.0)
[2024-05-01 12:37] LABS: Bacteria/HPF 1+ HPF (None Seen); Urine Culture Reflex Yes Yes
[2024-05-01 12:49] LABS: Magnesium 1.6 mg/dL (1.6-2.6)
[2024-05-01] MEDS ORDERED: Sodium Chloride 0.9% 100 ML ONE (13:32)
[2024-05-01] MEDS ORDERED: Potassium Chloride 20 MEQ TAB ONE (13:32)
[2024-05-01] MEDS ORDERED: cefTRIAXone (ROCEPHIN) 1 GM VIAL ONE (13:32)
== END 2024-05-01 14:07 | disposition home or self-care (01) ==
LOC: ERS 10:18
DX: N39.0 Urinary tract infection, site not specified (principal); R11.2 Nausea with vomiting, unspecified; I11.0 Hypertensive heart disease with heart failure; I50.9 Heart failure, unspecified
CPT/HCPCS: 74177; 80053; 81001; 83690; 83735; 83880; 84484; 85025; 87086; 93005; 94760; J0696; J2405; 36415; 36556; 87077; 87186; 96365; 96375; Q9967

== ENCOUNTER 2024-05-22 11:09 | Emergency (ER) | payer MEDICARE ==
[2024-05-22 11:46] LABS: #Basophils 0.03 10x3/uL (0.0-0.2); %Basophils 0.5 % (0.0-1.0); %Eosinophils 6.3 % (0.0-10.0); %Lymphocytes 13.2 % (21.0-51.0); %Monocytes 13.5 % (0.0-10.0); %Neutrophils 65.5 % (42.0-75.0); Hemoglobin 7.5 g/dL (12.0-16.0); Mean Corpuscular HGB CONC 31.3 g/dL (32.0-36.0); Mean Corpuscular Hemoglobin 25.7 pg (27.0-31.0); Mean Corpuscular Volume 82.2 fL (78.0-98.0); Mean Platelet Volume 8.8 fL (7.4-10.4); Platelet Count 328 10x3/uL (130-400); RBC Distribution Width 15.1 % (11.5-14.5); Red Blood Cell (RBC) Count 2.92 mill/uL (4.20-5.40)
[2024-05-22 12:04] LABS: ALT (SGPT) 11 U/L (Less than 34); AST (SGOT) 24 U/L (11-34); Albumin 3.2 g/dL (3.1-4.5); Alkaline Phosphatase 56 U/L (40-110); Anion Gap 14 mmol/L (10-20); BUN (Urea Nitrogen) 29 mg/dL (9.8-20.1); Bilirubin, Total 0.2 mg/dL (0.3-1.2); Calc. Creatinine Clearance 0 mL/min (70-130); Calcium 8.9 mg/dL (7.8-10.44); Carbon Dioxide 27 mmol/L (23-31); Chloride 101 mmol/L (98-107); Estimated GFR 22; Globulin 2.8 g/dL (2.4-3.5); Glucose 83 mg/dL (83-110); Sodium 137 mmol/L (136-145)
== END 2024-05-22 18:55 | disposition home or self-care (01) ==
LOC: ERS 11:09
DX: D64.9 Anemia, unspecified (principal); N17.9 Acute kidney failure, unspecified; E86.0 Dehydration; I11.0 Hypertensive heart disease with heart failure; I50.9 Heart failure, unspecified; I48.91 Unspecified atrial fibrillation
CPT/HCPCS: 36430; 76770; 80053; 85025; 86850; 86900; 86901; 86920; P9016; 36415